=== PATIENT | female | born 1985 | race Caucasian/White ===

== ENCOUNTER 2019-12-18 12:55 | Emergency (ER) | payer BC, SELFPAY ==
[2019-12-18 13:08] VITALS: BP 90/75; PULSE 75; RESP 16; TEMP 36.7; O2SAT 100
--- NOTE | 2019-12-18 13:23 | ED.URI ---
HPI - URI/Sore Throat General Chief Complaint: Upper Respiratory Infection Stated Complaint: Cough/Headache/Fatigue Time Seen by Provider: 12/18/19 13:16 Source: patient and RN notes reviewed Mode of arrival: ambulatory Limitations: no limitations History of Present Illness HPI Narrative: Patient presents today complaint of a 2-week history of frontal headache, sore throat, productive cough. Mostly productive in the mornings. Patient reports shortness of breath when she goes outside. She currently rates her headache 6/10 and has tried NyQuil, Benadryl, and Sudafed without relief. No history of asthma or COPD. She is a non-smoker. MD elicited complaint: cough, sore throat and nasal congestion Related Data Home Medications Medication Instructions Recorded Confirmed bupropion HCl mg PO 12/18/19 lactulose 12/18/19 omeprazole 12/18/19 sertraline mg 12/18/19 Allergies Allergy/AdvReac Type Severity Reaction Status Date / Time adhesive Allergy Severe RASH/ Verified 12/18/19 13:01 BLISTERS peanut Allergy Severe RASH, Verified 12/18/19 13:01 SWELLING lidocaine Allergy Intermediate Rash Verified 12/18/19 13:01 Review of Systems Review of Systems: Narrative: CONSTITUTIONAL: Denies body aches, fever, chills, or sweats. EYES: Denies visual changes, redness, or discharge. ENT: Denies rhinorrhea, congestion, or otalgia.+ Sore throat CARDIOVASCULAR: Denies chest pain, palpitations, or edema. RESPIRATORY: Denies dyspnea.+ Cough with occasional shortness of breath GASTROINTESTINAL: Denies abdominal pain, nausea, vomiting, or diarrhea. GENITOURINARY: Denies dysuria or hematuria. SKIN: Denies rash, itching, or wounds. MUSCULOSKELETAL: Denies back pain, joint pain, or myalgia. NEUROLOGIC: Denies numbness, tingling, or weakness.+ Headache PSYCH: Denies depression or anxiety. [facility] Family History Family History (Updated 06/24/14 @ 07:13 by DOCTOR UNKNOWN) Mother Family history of thyroid disease Family history of chronic obstructive pulmonary disease Sibling Hypertension Asthma Family history of arthritis Family history of malignant neoplasm of uterus Father Family history of lung cancer Other Diabetes mellitus Family history of allergic disorder Family history of cardiovascular disease Social History Social History Smoking status: Never smoker Alcohol intake: current Comments At time of signature, I have reviewed and agree with nursing past medical, surgical, social and family history unless otherwise noted. Please see nursing chart for further information. There is no relevant family history pertinent to the presenting complaint Exam Narrative: Exam Narrative: GENERAL: Well-appearing, well-nourished, and in no acute distress. HEAD: Normocephalic, atraumatic. EYES: EOMI. No redness or drainage. Conjunctivae normal. ENT: Mucous membranes pink and moist. Nares clear. No rhinorrhea. TMs normal bilaterally. Frontal sinus tenderness. Throat normal. Uvula midline. NECK: Normal AROM. Supple. No lymphadenopathy. CHEST: No respiratory distress. Clear to auscultation. HEART: Regular rate and rhythm. No murmur appreciated. Normal peripheral pulses. EXTREMITIES: Normal range of motion. No edema. SKIN: Warm, dry, no rash. NEURO: No focal deficits. Alert and oriented x3. Gait steady. PSYCH: Normal affect. No signs of depression or anxiety. Course Vital Signs Vital signs: Vital Signs Temperature 98.0 F 12/18/19 13:08 Pulse Rate 75 12/18/19 13:08 Respiratory Rate 16 12/18/19 13:08 Blood Pressure 90/75 L 12/18/19 13:08 Pulse Oximetry 100 12/18/19 13:08 Temperature 98.0 F 12/18/19 13:08 Pulse Rate 75 12/18/19 13:08 Respiratory Rate 16 12/18/19 13:08 Blood Pressure 90/75 L 12/18/19 13:08 Pulse Oximetry 100 12/18/19 13:08 Reviewed MDM - URI/Sore Throat Differential Diagnosis Differential diagnosis: Likely upper respiratory infection, sinusit
== END 2019-12-18 13:30 | disposition home or self-care (01) ==
PROVIDERS: Emergency Provider Nurse Practitioner; PCP Internal Medicine
DX: J40 Bronchitis, not specified as acute or chronic (principal); J01.90 Acute sinusitis, unspecified
CPT/HCPCS: 99213; G0463

== ENCOUNTER 2020-09-24 17:53 | Emergency (ER) | payer BC, SELFPAY ==
[2020-09-24 18:03] VITALS: BP 149/97; PULSE 75; RESP 16; TEMP 37.3; O2SAT 100
--- NOTE | 2020-09-24 18:22 | ED.GENADULT ---
HPI - General Adult General Chief complaint: Abdominal Pain Stated complaint: abdominal pain Source: patient Mode of arrival: ambulatory Limitations: no limitations History of Present Illness HPI narrative: Patient is a 35-year-old female who presents complaining of dysuria x2 days. Patient reports being seen by [facility] last week and tested for STDs, patient denies risk of STDs at this time. Patient has a history of gastric sleeve and revision. She denies nausea, vomiting or diarrhea. She reports lower pelvic pressure and dysuria. She reports drinking cranberry juice and increasing water intake with little relief. Related Data Home Medications Medication Instructions Recorded Confirmed bupropion HCl 150 mg PO DAILY 12/18/19 09/24/20 levonorgestrel [Kyleena] 1 device INTRAUTERINE ONCE 12/18/19 09/24/20 omeprazole 40 mg PO DAILY 12/18/19 09/24/20 sertraline 50 mg PO DAILY 12/18/19 09/24/20 spironolactone 50 mg PO DAILY 09/24/20 09/24/20 Allergies Allergy/AdvReac Type Severity Reaction Status Date / Time adhesive Allergy Severe RASH/ Verified 09/24/20 17:58 BLISTERS peanut Allergy Severe RASH, Verified 09/24/20 17:58 SWELLING lidocaine Allergy Intermediate Rash Verified 09/24/20 17:58 Review of Systems Review of Systems: Narrative: CONSTITUTIONAL: Denies fever, chills, or sweats. EYES: Denies visual changes, redness, or discharge. ENT: Denies rhinorrhea, congestion, sore throat, or otalgia. CARDIOVASCULAR: Denies chest pain, palpitations, or edema. RESPIRATORY: Denies cough or dyspnea. GASTROINTESTINAL: Denies abdominal pain, nausea, vomiting, or diarrhea. GENITOURINARY: Reports dysuria SKIN: Denies rash or itching. MUSCULOSKELETAL: Denies back pain, joint pain, or myalgia. NEUROLOGIC: Denies headache, numbness, dizziness, or weakness. PSYCHIATRIC: Denies anxiety or depression. [facility] Surgical History Surgical History History of sleeve gastrectomy Family History Family History Mother Family history of thyroid disease Family history of chronic obstructive pulmonary disease Sibling Hypertension Asthma Family history of arthritis Family history of malignant neoplasm of uterus Father Family history of lung cancer Other Diabetes mellitus Family history of allergic disorder Family history of cardiovascular disease Social History Social History Smoking status: Never smoker Alcohol intake: current Exam Narrative: Exam Narrative: GENERAL: Well-appearing, well-nourished, and in no acute distress. HEAD: Normocephalic, atraumatic. EYES: No redness or drainage. ENT: Mucous membranes pink and moist. CHEST: No respiratory distress. HEART: Regular rate and rhythm. GI: Soft, nontender without rebound, or guarding. No distention. Bowel sounds normal in all quadrants. EXTREMITIES: Normal range of motion. SKIN: Warm, dry, no rash. NEURO: No focal deficits. Alert and oriented x3. Gait steady. PSYCH: Normal affect. No signs of depression or anxiety. Course Vital Signs Vital signs: Vital Signs Temperature 37.3 C 09/24/20 18:03 Pulse Rate 75 09/24/20 18:03 Respiratory Rate 16 09/24/20 18:03 Blood Pressure 149/97 H 09/24/20 18:03 Pulse Oximetry 100 09/24/20 18:03 Temperature 37.3 C 09/24/20 18:03 Pulse Rate 75 09/24/20 18:03 Respiratory Rate 16 09/24/20 18:03 Blood Pressure 149/97 H 09/24/20 18:03 Pulse Oximetry 100 09/24/20 18:03 Reviewed. Patient has been instructed to follow-up with her PCP regarding her blood pressure. Medical Decision Making MDM Narrative Medical decision making narrative: Discussed with patient the possibility of UTI. Patient to be treated for UTI at this time because of symptoms. Discussed with patient potential for complications with sleeve gastrectomy rev
== END 2020-09-24 18:23 | disposition home or self-care (01) ==
PROVIDERS: Emergency Provider Nurse Practitioner
DX: R30.0 Dysuria (principal); Z98.84 Bariatric surgery status
CPT/HCPCS: 81003; 99213; G0463

== ENCOUNTER 2021-01-08 11:47 | Emergency (ER) | payer BC, SELFPAY ==
--- NOTE | ~2021-01-08 | US_ITS ---
EXAMINATION: US pelvic complete DATE: 01/08/2021 14:26 INDICATION: Right-sided pelvic pain Comparison:No prior studies for comparison. TECHNIQUE: Multiple transabdominal images of the pelvis performed. Patient refused transvaginal exami nation. FINDINGS: The uterus measures 10.8 x 5.1 x 6.1 cm. The endometrial complex measures 4 mm. The right ovary measures 1 x 4.2 x 5.2 cm and the left ovary not visualized. There are 2 cysts in the right ovary, largest measuring 5.2 cm. There is no free fluid in the pelvis. There are no abnormal masses seen on either side. IMPRESSION: 1. Right ovarian cysts, largest measuring 5.2 cm. Reviewed, dictated and finalized at location A.
[2021-01-08 11:50] VITALS: BP 140/79; PULSE 59; RESP 16; TEMP 36.2; O2SAT 100
[2021-01-08 12:12] LABS: Basophils Absolute Auto 0.1 K/mm3 (0.0-0.1); Eosinophils Absolute Auto 0.3 K/mm3 (0-0.3); Eosinophils Percent Auto 6.9 % (0-4.4); Hematocrit 37.4 % (37.0-47.0); Hemoglobin 11.8 g/dL (12.0-15.0); Immature Granulocyte Absolute 0.01 K/mm3 (0.00-0.031); Immature Granulocyte Percent A 0.2 % (0-0.5); Immature Platelet Fraction Pct 11.1 % (0.9-11.2); Lymphocytes Absolute Auto 1.24 K/mm3 (0.9-3.2); Lymphocytes Percent Auto 25.8 % (18.3-44.2); Mean Corpuscular HGB Conc 31.6 g/dl (32-36); Mean Corpuscular Hemoglobin 30.3 pg (26-34); Mean Corpuscular Volume 95.9 fl (80-100); Mean Platelet Volume 13.2 fl (7.4-10.4); Monocytes Absolute Auto 0.3 K/mm3 (0.1-0.6); Monocytes Percent Auto 6.7 % (2.6-8.5); Neutrophils Absolute Auto 2.9 K/mm3 (1.3-6.7); Neutrophils Percent Auto 59.4 % (45.5-73.1); Platelet Count Result 186 k/mm3 (150-375); White Blood Count 4.8 K/mm3 (4.5-10.0)
--- NOTE | 2021-01-08 12:28 | ED.ABDPAIN ---
HPI - Abdominal Pain General Chief Complaint: Abdominal Pain Stated Complaint: lower right abd pain Time Seen by Provider: 01/08/21 11:57 Source: patient Mode of arrival: ambulatory Limitations: no limitations History of Present Illness HPI narrative: This is a 35-year-old female that presents the emergency department for right lower quadrant abdominal pain x2 days. Reports she has intermittently felt pain over the last couple of weeks. Reports over the last couple of days the pain has been more constant. It is throbbing in nature. No known alleviating or exacerbating factors. Associated with nausea. Denies fever, vomiting, dysuria, or hematuria. Related Data Home Medications Medication Instructions Recorded Confirmed omeprazole 40 mg PO DAILY 12/18/19 09/24/20 sertraline 50 mg PO DAILY 12/18/19 09/24/20 Allergies Allergy/AdvReac Type Severity Reaction Status Date / Time adhesive Allergy Severe RASH/ Verified 01/08/21 11:56 BLISTERS peanut Allergy Severe RASH, Verified 01/08/21 11:56 SWELLING lidocaine Allergy Intermediate Rash Verified 01/08/21 11:56 Review of Systems Review of Systems: Narrative: CONSTITUTIONAL: Denies fever GASTROINTESTINAL: Reports abdominal pain, nausea. Denies vomiting GENITOURINARY: Denies dysuria or hematuria. All systems reviewed & are unremarkable except as noted in HPI and below PMFSH Past Medical History Medical History (Updated 01/08/21 @ 15:21 by Annette Gaytan PA-C) History of gastroesophageal reflux (GERD) Surgical History Surgical History History of sleeve gastrectomy Family History Family History Mother Family history of thyroid disease Family history of chronic obstructive pulmonary disease Sibling Hypertension Asthma Family history of arthritis Family history of malignant neoplasm of uterus Father Family history of lung cancer Other Diabetes mellitus Family history of allergic disorder Family history of cardiovascular disease Social History Social History Smoking status: Never smoker Alcohol intake: current Exam Narrative: Exam Narrative: GENERAL: Well-appearing, obese, and in no acute distress. HEAD: Normocephalic, atraumatic. EYES: EOMI. CHEST: Clear to auscultation. No respiratory distress. No wheezes rales or rhonchi HEART: Regular rate and rhythm. No murmur heard. Normal peripheral pulses. ABDOMEN: Soft, nondistended, normal active bowel sounds. Tender to palpation in the right lower quadrant, without guarding. No CVA tenderness EXTREMITIES: Normal range of motion. No edema. SKIN: Warm, dry, no rash. NEURO: No focal deficits. Alert and oriented x3. PSYCH: Normal mood and affect Course Consultations Consultation #1: Spoke with Dr. Marisel Brooks about patient and workup. Patient is to follow up in clinic tomorrow Date: 01/08/21 Time: 15:18 Vital Signs Vital signs: Vital Signs Temperature 97.1 F L 01/08/21 11:50 Pulse Rate 59 L 01/08/21 11:50 Respiratory Rate 16 01/08/21 11:50 Blood Pressure 140/79 01/08/21 11:50 Pulse Oximetry 100 01/08/21 11:50 Temperature 97.1 F L 01/08/21 11:50 Pulse Rate 59 L 01/08/21 11:50 Respiratory Rate 16 01/08/21 11:50 Blood Pressure 140/79 01/08/21 11:50 Pulse Oximetry 100 01/08/21 11:50 MDM - Abdominal Pain MDM Narrative Medical decision making narrative: Patient presents the emergency department for right-sided abdominal/pelvic pain intermittent over the last couple of weeks. She is afebrile and nontoxic-appearing. Vitals are stable. CBC is without leukocytosis. Hemoglobin is 11.8. Metabolic panel without concerning findings. Lipase is normal. UA without evidence of infection. Bedside test is negative. Patient does have ovarian cysts shown on pelvic ultrasound. Largest
[2021-01-08 12:50] LABS: Add Urine Microscopic? YES; Appearance Urine Clear (Clear); Bilirubin Urine Negative (Negative); Blood Urine 3+ (Negative); Calcium Oxalate Crystals Urine Present /hpf; Color Urine Yellow (Yellow); Glucose Urine UA Negative (Negative); Ketones Urine Negative (Negative); Leukocyte Esterase Ur Negative LEU/UL (Negative); Mucus Urine Few /lpf; Nitrate Urine Negative (Negative); Protein Urine Negative (Negative); Specific Grav Ur 1.021 (1.001-1.035); Squamous Epithelial Cell Urine Few /hpf (Few); WBC Urine 0-3 /hpf
[2021-01-08 12:57] LABS: Alanine Aminotransferase 11 U/L (4-35); Albumin Level 3.8 g/dL (3.5-5.1); Alkaline Phosphatase 65 U/L (38-126); Anion Gap 3 mmol/L (8-16); Aspartate Amino Transferase 27 U/L (14-36); Bilirubin,Total 0.4 mg/dL (0.2-1.3); Blood Urea Nitrogen 9 mg/dL (7-17); Calcium 8.8 mg/dL (8.4-10.2); Carbon Dioxide 30 mmol/L (22-30); Chloride 106 mmol/L (98-107); Estimated CRCL calculation 174 ml/min; Estimated Glomerular Filt Rate > 60; Glucose 79 mg/dL (65-105); Lipase 102 U/L (23-300); Potassium 3.9 mmol/L (3.4-5.0); Sodium 139 mmol/L (137-145)
[2021-01-08] MEDS: ONDANSETRON INJ 4 MG/2 ML VIAL IV PUSH (13:26)
[2021-01-08] MEDS: MORPHINE SULFATE (*CRX) 4 MG/ML INJ IV PUSH (13:26)
--- NOTE | 2021-01-14 15:53 | PC.NURSE ---
LATE ENTRY This note is being entered to document information to the patient's record. The following information was omitted on [01/08/21], by [CHARISSA]. [facility] START [id number] END [id number]
== END 2021-01-08 15:53 | disposition home or self-care (01) ==
PROVIDERS: Physician Assistant; Emergency Provider Family Medicine; PCP Internal Medicine
DX: N83.201 Unspecified ovarian cyst, right side (principal); K21.9 Gastro-esophageal reflux disease without esophagitis; Z98.84 Bariatric surgery status
CPT/HCPCS: 36415; 76856; 80053; 81001; 81025; 83690; 85025; 85055; 96365; 96375; 99284; J0131; J2270; J2405

== ENCOUNTER → 2021-01-10 00:59 | Outpatient (CLI) | payer BC, SELFPAY ==
[2021-01-10 18:32] LABS: SARS-CoV-2 RNA PCR Negative
== END ==
PROVIDERS: PCP Internal Medicine; Visit Provider Obstetrics & Gynecology
DX: Z01.812 Encounter for preprocedural laboratory examination (principal); Z20.822 Contact with and (suspected) exposure to COVID-19
CPT/HCPCS: C9803; U0003; U0005

== ENCOUNTER 2021-01-13 01:10 | Day surgery (SDC) | payer BC, SELFPAY ==
--- NOTE | 2021-01-10 09:59 | PM.IMHP ---
H&P: HPI History of Present Illness Date/Time: 01/10/21 09:59 status post left salpingo-oophorectomy is admitted for right cystectomy secondary to enlarged ovarian cyst and pain. She was seen in the emergency department and a large right ovarian cyst was seen. Pain is 10 of review systems were negati Chief Complaint: pain r ov cyst PMFSH Past Medical History Medical History History of gastroesophageal reflux (GERD) Surgical History Surgical History History of sleeve gastrectomy Family History Family History Mother Family history of thyroid disease Family history of chronic obstructive pulmonary disease Sibling Hypertension Asthma Family history of arthritis Family history of malignant neoplasm of uterus Father Family history of lung cancer Other Diabetes mellitus Family history of allergic disorder Family history of cardiovascular disease Social History Social History Smoking status: Never smoker Alcohol intake: current Meds Home Medications and Allergies Home Medications Medication Instructions Recorded Confirmed Type omeprazole 40 mg PO DAILY 12/18/19 09/24/20 History sertraline 50 mg PO DAILY 12/18/19 09/24/20 History hydrocodone-acetaminophen 1 tablet PO Q6H PRN #14 tablet 01/08/21 Rx Allergies Allergy/AdvReac Type Severity Reaction Status Date / Time adhesive Allergy Severe RASH/ Verified 01/08/21 11:56 BLISTERS peanut Allergy Severe RASH, Verified 01/08/21 11:56 SWELLING lidocaine Allergy Intermediate Rash Verified 01/08/21 11:56 Exam Const: General: no acute distress Eyes: General: appearance normal, both eyes and all related structures Neck: Neck: supple and no JVD Thyroid: thyroid normal Resp: Effort & Inspection: normal respiratory effort Auscultation: clear to auscultation bilaterally Cardio: Rate: regular rate Rhythm: regular rhythm GI: Inspection: non-distended GI Palp: Yes Soft to palpation, No Tenderness to palpation present (GI) and No Guarding due to palpation present (GI) Auscultation: normal bowel sounds : General: Yes bladder normal to inspection External Female Exam: normal external appearance Speculum Exam - Vagina: normal appearance of the vagina Speculum Exam - Cervix: Cervical os closed Bimanual exam- vagina & uterus: Uterine tenderness Bimanual Exam- Adnexa, other: tender on the right Skin: General skin exam: no rashes or lesions noted Extrem: General: normal to inspection and no edema Psych: Mental Status: mental status grossly normal Affect: normal affect Assessment and Plan Additional Plan impression: Complex right ovarian cyst Plan: Laparoscopic right ovarian cystectomy possible right salpingo-oophorectomy
[2021-01-10 12:10] VITALS: BMI 41.3
[2021-01-13] VITALS (9 sets, daily range): BP systolic 116–143; BP diastolic 53–78; PULSE 59–74; RESP 10–20; TEMP 36.8; O2SAT 98–100
--- NOTE | 2021-01-13 06:05 | WPDHPUPDATE1 ---
History and Physical Update Update Date/Time: 01/13/21 06:05 History and Physical has been reviewed, including an updated exam of the patient. There are NO changes in the patient's condition. Risks, benefits, and alternatives have been discussed and questions answered. Patient agrees to proceed with procedure.
--- NOTE | 2021-01-13 13:52 | P.PNAN_ITS ---
Anes - Initial Pre Proc Eval Procedure: Operation Date: 01/13/21 15:15 Proposed Procedures p Laparoscopy With Right Ovarian Cystectomy, Possible Right Salpingo- oophorectomy - Christopher Squires MD Date/Time: 01/13/21 13:52 Surgeon: Christopher Squires MD Pre Op Diagnosis: Right Ovarian Cyst, pain Patient Data Age: 35 Gender: F Height: 5 ft 6 in Weight: 116 kg Allergies Allergy/AdvReac Type Severity Reaction Status Date / Time peanut Allergy Severe RASH, Verified 01/13/21 13:45 THROAT SWELLING adhesive AdvReac Intermediate RASH/ Verified 01/13/21 13:45 BLISTERS lidocaine AdvReac Intermediate Rash Verified 01/13/21 13:45 Home Medications Medication Instructions Recorded Confirmed Type omeprazole 40 mg PO DAILY 12/18/19 01/13/21 History sertraline 50 mg PO DAILY 12/18/19 01/13/21 History hydrocodone-acetaminophen 1 tablet PO Q6H PRN #14 tablet 01/08/21 01/10/21 Rx [id number] K 1 cap PO DAILY 01/10/21 01/13/21 History [Bariatric Multivitamins] hydrocodone-acetaminophen 1 tablet PO Q6H PRN #30 tablet 01/13/21 Rx Patient hx anesthesia problems: none Family hx anesthesia problems: none PMFSH Past Medical History Medical History (Updated 01/13/21 @ 13:51 by Ezra Selby MD) History of gastroesophageal reflux (GERD) Hypertension 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 Surgical History Surgical History History of sleeve gastrectomy Family History Family History Mother Family history of thyroid disease Family history of chronic obstructive pulmonary disease Sibling Hypertension Asthma Family history of arthritis Family history of malignant neoplasm of uterus Father Family history of lung cancer Other Diabetes mellitus Family history of allergic disorder Family history of cardiovascular disease Social History Social History Smoking status: Never smoker Alcohol intake: current Alcohol use details: 1-2 TIMES/YEAR Substance use: never Substance use type: does not use Living arrangements: with family Spiritual care concerns: No Anes - Eval Final PreProcedure Day of Procedure 01/13/21 13:52 Patient weight: morbidly obese Heart: regular rate and rhythm Lungs: clear to auscultation Airway: Mallampati scale class III Neurological: alert and oriented Last oral intake: >/= 8 hours ASA classification: III Emergent: no Anesthetic plan: proceed Anesthesia type and monitoring: general ETT and standard monitoring Informed Consent: The patient's anesthetic plan and its attendant risks and benefits were discussed with the patient/family/POA. Questions were solicited and answers provided to the satisfaction of the patient/family/POA.
[2021-01-13] MEDS: LACTATED RINGERS 1,000 ML 30 ML IV CONT ×2 (13:55→15:03)
[2021-01-13] MEDS: ACETAMINOPHEN 500 MG TABLET 1000 MG PO (14:05)
[2021-01-13] MEDS: SCOPOLAMINE 1.5 MG PATCH TRANSDERM (14:09)
[2021-01-13] MEDS: KETOROLAC 15 MG/ML VIAL (*BKC) IV PUSH (14:10)
--- NOTE | 2021-01-13 14:51 | PM.PROC ---
Procedure Note - Detailed Date of procedure: 01/13/21 Pre-op diagnosis: Right Ovarian Cyst, pain Surgeon: Christopher Squires MD Postop diagnosis: Right ovarian cyst/pain Procedure: Laparoscopic destruction of right ovarian cyst Anesthesia: General endotracheal EBL: 5cc Findings: Absent left ovary and tube. Normal appearing uterus. Large right ovarian cyst. Pelvic congestion on the right. Complications: None Description of procedure: The patient was prepped and draped in the normal sterile fashion placed in the dorsal lithotomy position. Under excellent general trach anesthesia weighted speculum placed in posterior fornix of vagina. Anterior lip of the cervix was grasped with a single-tooth tenaculum and the Garcia's cannula inserted to the cervix. These were attached to be used later for uterine manipulation. The bladder was emptied of clear urine. The weighted speculum removed. Gloves were changed. A supraumbilical incision made the Veress needle passed in the abdomen. Abdomen filled with CO2 gas [id number]. The 5mm trocar advanced directly into the abdomen under visualization assuring no injury. The patient placed in Trendelenburg and a suprapubic incision made. The 5mm trocar advanced under direct visualization assuring no injury. The large right ovarian cyst was seen with a large amount of pelvic congestion. There was no torsion present. The incision was opened along the ovary in a linear fashion using cautery. This drained of clear fluid. This was then irrigated and suction. No other abnormalities were seen. The liver was noted to be fairly large incised. The lower site removed after gas removed from the abdomen. The upper site removed and the incisions closed with 4 Monocryl and glue. The instruments removed from below. The patient was awakened. All sponge, needle, instrument counts were correct. There were no immediate complications
[2021-01-13] MEDS: fentaNYL CITRATE INJ (*CRX) 100 MCG/2 ML VIAL 25 MCG IV PUSH ×4 (15:16→15:26)
[2021-01-13] MEDS: oxyCODONE HCL (*CRX) 5 MG TAB IR PO (16:08)
== END 2021-01-13 17:14 | disposition home or self-care (01) ==
PROVIDERS: PCP Internal Medicine; Visit Provider Obstetrics & Gynecology
PROC: (CPT 49320; principal; 2021-01-13 15:15)
DX: N83.291 Other ovarian cyst, right side (principal); R10.12 Left upper quadrant pain; K21.9 Gastro-esophageal reflux disease without esophagitis; I10 Essential (primary) hypertension; Z92.21 Personal history of antineoplastic chemotherapy; Z92.3 Personal history of irradiation; Z85.79 Personal history of other malignant neoplasms of lymphoid, hematopoietic and related tissues; E66.01 Morbid (severe) obesity due to excess calories; Z68.41 Body mass index [BMI] 40.0-44.9, adult; Z98.84 Bariatric surgery status
CPT/HCPCS: 58662; 36415; 86850; 86900; 86901; A9270; J0330; J1100; J1885; J2250; J2405; J2704; J3010; J7120

== ENCOUNTER 2021-03-26 22:28 | Emergency (ER) | payer BC, SELFPAY ==
--- NOTE | ~2021-03-26 | CT_ITS ---
EXAMINATION: CT abdomen pelvis w con DATE: 03/27/2021 00:51 INDICATION: Suprapubic pain. TECHNIQUE: Computed tomography (CT) of the abdomen and pelvis was performed with 100 mL Omnipaque 350 intravenous contrast. Automated exposure control and iterative reconstruction technique were employe d. The dose-length product was 965.54 mGy-cm. COMPARISON: CT abdomen and pelvis 11/12/2018 FINDINGS: The visualized portions of the lung bases are clear without pneumonia or pleural effusion. The heart size is normal. No pericardial effusion. There are surgical changes of the stomach. There i s mild intrahepatic biliary duct dilatation. The common duct is dilated to 14 mm. These findings are stable from 11/12/2018 and likely not clinically significant given the normal liver function tests. Th ere are changes of cholecystectomy. The spleen, pancreas, adrenal glands, and left kidney are normal. There are two 2 mm stones in right kidney. There are no dilated loops of bowel. The appendix is norm al. There are no pathologically enlarged lymph nodes. There is trace ascites. There is a chronic comp ression fracture of L1. There is moderate lumbar spondylosis. IMPRESSION: 1. Small nonobstructing right kidney stones. Reviewed, dictated and finalized at location A.
[2021-03-26 22:32] VITALS: BP 146/90; PULSE 75; RESP 18; TEMP 36.6; O2SAT 99
[2021-03-26 22:50] LABS: Basophils Absolute Auto 0.1 K/mm3 (0.0-0.1); Basophils Percent Auto 1.1 % (0.2-1.2); Eosinophils Absolute Auto 0.4 K/mm3 (0-0.3); Eosinophils Percent Auto 7.8 % (0-4.4); Immature Granulocyte Absolute 0.01 K/mm3 (0.00-0.031); Immature Granulocyte Percent A 0.2 % (0-0.5); Lymphocytes Absolute Auto 1.63 K/mm3 (0.9-3.2); Lymphocytes Percent Auto 35.1 % (18.3-44.2); Mean Corpuscular HGB Conc 30.8 g/dl (32-36); Mean Corpuscular Hemoglobin 27.3 pg (26-34); Mean Corpuscular Volume 88.8 fl (80-100); Mean Platelet Volume 12.8 fl (7.4-10.4); Monocytes Absolute Auto 0.3 K/mm3 (0.1-0.6); Neutrophils Absolute Auto 2.3 K/mm3 (1.3-6.7); Neutrophils Percent Auto 49.8 % (45.5-73.1); Platelet Count Result 217 k/mm3 (150-375); Red Blood Count 4.39 M/mm3 (4.2-5.4); Red Cell Distribution Width 13.9 % (11.5-14.5); White Blood Count 4.6 K/mm3 (4.5-10.0)
[2021-03-26 23:19] LABS: Alanine Aminotransferase 14 U/L (4-35); Albumin Level 4.4 g/dL (3.5-5.1); Alkaline Phosphatase 88 U/L (38-126); Anion Gap 10 mmol/L (8-16); Aspartate Amino Transferase 29 U/L (14-36); Bilirubin,Total 0.4 mg/dL (0.2-1.3); Blood Urea Nitrogen 13 mg/dL (7-17); Calcium 9.5 mg/dL (8.4-10.2); Carbon Dioxide 24 mmol/L (22-30); Chloride 106 mmol/L (98-107); Estimated CRCL calculation 161 ml/min; Estimated Glomerular Filt Rate > 60; Glucose 100 mg/dL (65-105); Lipase 108 U/L (23-300); Potassium 3.6 mmol/L (3.4-5.0); Sodium 140 mmol/L (137-145)
[2021-03-26 23:47] LABS: Add Urine Microscopic? YES; Appearance Urine Clear (Clear); Bacteria Urine Trace /hpf; Bilirubin Urine 1+ (Negative); Blood Urine Negative (Negative); Color Urine Amber (Yellow); Glucose Urine UA Negative (Negative); Ketones Urine Negative (Negative); Leukocyte Esterase Ur Negative LEU/UL (Negative); Mucus Urine Few /lpf; Nitrate Urine Negative (Negative); Protein Urine 2+ mg/dL (Negative); Squamous Epithelial Cell Urine Moderate /hpf (Few)
[2021-03-26] MEDS: MORPHINE SULFATE (*CRX) 4 MG/ML INJ IV PUSH (23:54)
[2021-03-26 23:56] LABS: Specific Grav Ur 1.055 (1.001-1.035)
--- NOTE | 2021-03-27 02:50 | ED.ABDPAIN ---
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 No improvement with Tylenol. No aggravating factors that she can identify. She is without GI or symptoms. No vaginal discharge or bleeding. Has history of ovarian cysts and this feels similar. Related Data Home Medications Medication Instructions Recorded Confirmed omeprazole 40 mg PO DAILY 12/18/19 01/13/21 sertraline 50 mg PO DAILY 12/18/19 01/13/21 pciyfynwmwwb-tsc-xhvd-FA-vit K 1 cap PO DAILY 01/10/21 01/13/21 [Bariatric Multivitamins] Allergies Allergy/AdvReac Type Severity Reaction Status Date / Time peanut Allergy Severe RASH, Verified 01/13/21 13:45 THROAT SWELLING adhesive AdvReac Intermediate RASH/ Verified 01/13/21 13:45 BLISTERS lidocaine AdvReac Intermediate Rash Verified 01/13/21 13:45 Review of Systems Review of Systems: All systems reviewed & are unremarkable except as noted in HPI and below Constitutional: Constitutional: Denies chills and Denies fever(s) Gastrointestinal: Gastrointestinal: Reports abdominal pain, Denies diarrhea, Reports nausea and Denies vomiting Genitourinary: Genitourinary: Denies hematuria, Denies nocturia, Denies dysuria and Denies flank pain Musculoskeletal: Musculoskeletal: Denies back pain and Denies muscle cramps PMFSH Past Medical History Medical History (Updated 03/27/21 @ 02:52 by Nino Danielle MD) History of gastroesophageal reflux (GERD) Hypertension 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 Surgical History Surgical History (Updated 03/27/21 @ 02:52 by Nino Danielle MD) History of left salpingo-oophorectomy History of sleeve gastrectomy Family History Family History Mother Family history of thyroid disease Family history of chronic obstructive pulmonary disease Sibling Hypertension Asthma Family history of arthritis Family history of malignant neoplasm of uterus Father Family history of lung cancer Other Diabetes mellitus Family history of allergic disorder Family history of cardiovascular disease Social History Social History Smoking status: Never smoker Alcohol intake: current Substance use: never Substance use type: does not use Spiritual care concerns: No Exam Narrative: Exam Narrative: GENERAL: Well-appearing, well-nourished, and in no acute distress. HEAD: Normocephalic, atraumatic. CHEST: Clear to auscultation. No respiratory distress. HEART: Regular rate and rhythm. Normal peripheral pulses. ABDOMEN: Soft, mild to moderate suprapubic tenderness without guarding, nondistended, normal active bowel sounds. EXTREMITIES: Normal range of motion. No edema. SKIN: Warm, dry, no rash. NEURO: Alert and oriented x3. PSYCH: Normal mood and affect. Course Course Emergency Course: Suspect for short ovarian cyst. Pain improved with morphine. Discharge home. Vital Signs Vital signs: Vital Signs Temperature 98 F 03/26/21 22:32 Pulse Rate 75 03/26/21 22:32 Respiratory Rate 18 03/26/21 22:32 Blood Pressure 146/90 H 03/26/21 22:32 Pulse Oximetry 99 03/26/21 22:32 Temperature 98 F 03/26/21 22:32 Pulse Rate 75 03/26/21 22:32 Respiratory Rate 18 03/26/21 22:32 Blood Pressure 146/90 H 03/26/21 22:32 Pulse Oximetry 99 03/26/21 22:32 MDM - Abdominal Pain Lab Data Result diagrams: 03/26/21 22:43 03/26/21 22:43 Labs: Lab Results 03/26/21 03/26/21 03/26/21 Range/Units 22:43 22:43 23:29 WBC 4.6 (4.5-10.0) K/mm3 RBC 4.39 (4.2-5.4) M/mm3 Hgb 12.0
[2021-03-27 03:16] VITALS: BP 136/85; PULSE 79; RESP 16; TEMP 36.7; O2SAT 99
== END 2021-03-27 03:17 | disposition home or self-care (01) ==
PROVIDERS: Emergency Provider Emergency Medicine; PCP Internal Medicine
DX: N83.209 Unspecified ovarian cyst, unspecified side (principal); K21.9 Gastro-esophageal reflux disease without esophagitis; I10 Essential (primary) hypertension; Z85.79 Personal history of other malignant neoplasms of lymphoid, hematopoietic and related tissues; N20.0 Calculus of kidney
CPT/HCPCS: 36415; 74177; 80053; 81001; 81025; 83690; 85025; 96374; 99284; J2270; Q9967

== ENCOUNTER 2021-04-23 15:55 | Emergency (ER) | payer BC, SELFPAY ==
[2021-04-23] VITALS (9 sets, daily range): BP systolic 83–165; BP diastolic 43–100; PULSE 61–76; RESP 12–19; TEMP 36.8–37.1; O2SAT 94–100
--- NOTE | ~2021-04-23 | CT_ITS ---
EXAMINATION: CT brain wo con DATE: 04/23/2021 17:09 INDICATION: Syncope. TECHNIQUE: Computed tomography (CT) of the head was performed without intravenous contrast. The mA wa s adjusted according to patient size. Iterative reconstruction technique was employed. The dose-lengt h product was 605.33 mGy-cm. COMPARISON: Head CT 06/03/2017 FINDINGS: There is no intracranial hemorrhage, acute infarction, or abnormal intracranial mass lesion . The ventricles are normal in size. There is mild mucosal thickening in the paranasal sinuses. The o rbits are normal. There is a small right mastoid effusion. IMPRESSION: 1. Normal brain. Reviewed, dictated and finalized at location [facility]. IMPRESSION: 1. Normal brain.
--- NOTE | ~2021-04-23 | XR_ITS ---
EXAMINATION: XR chest 1V DATE: 04/23/2021 17:10 INDICATION: Syncope. TECHNIQUE: A single frontal view of the chest was obtained. COMPARISON: Chest 2 views 01/31/2016, CT abdomen and pelvis 03/27/2021 FINDINGS: The chest demonstrates clear lungs without pneumonia, pleural effusion, or pneumothorax. Th e heart size is normal. Surgical clips in the right upper quadrant are likely from cholecystectomy. IMPRESSION: 1. No acute cardiopulmonary disease. Reviewed, dictated and finalized at location [facility].
--- NOTE | ~2021-04-23 | CT_ITS ---
EXAMINATION: CT abdomen pelvis w con DATE: 04/23/2021 19:05 INDICATION: Low abdominal pain. TECHNIQUE: Computed tomography (CT) of the abdomen and pelvis was performed with 100 mL Omnipaque 350 intravenous contrast. Automated exposure control and iterative reconstruction technique were employe d. The dose-length product was 827.84 mGy-cm. COMPARISON: CT abdomen and pelvis 03/27/2021, 11/12/18 FINDINGS: The visualized portions of the lung bases are clear without pneumonia or pleural effusion. The heart size is normal. No pericardial effusion. There is periportal edema in the liver. There are changes of cholecystectomy. There are surgical changes in the stomach. The common duct is dilated to 12 mm, which is chronic and likely not clinically significant given the normal liver function tests. The spleen, pancreas, adrenal glands, and left kidney are normal. There are 2 stones in right kidney with the larger measuring 3 mm. There are no dilated loops of bowel. The appendix is normal. There ar e no pathologically enlarged lymph nodes. There is trace pelvic ascites. There is a chronic compressi on fracture of L1. There is mild lumbar spondylosis. IMPRESSION: 1. Small nonobstructing right kidney stones. Reviewed, dictated and finalized at location A.
--- NOTE | ~2021-04-23 | CT_ITS ---
EXAMINATION: CT cervical spine wo con DATE: 04/23/2021 17:09 INDICATION: Fall. TECHNIQUE: Computed tomography (CT) of the cervical spine was performed without intravenous contrast. Automated exposure control and iterative reconstruction technique were employed. The dose-length pro duct was 605.33 mGy-cm. COMPARISON: CT cervical spine 08/31/2016 FINDINGS: There is 9 degrees levocurvature of cervicothoracic spine. Vertebral body heights and inter vertebral disc heights are normal. C1 ring is ununited posteriorly, a normal variant. At C7-T1, there is mild bilateral facet joint osteoarthritis. No neural foraminal stenosis or central canal stenosis . IMPRESSION: 1. No fracture. Reviewed, dictated and finalized at location A. IMPRESSION: 1. No fracture.
--- NOTE | 2021-04-23 15:57 | ECG_ITS ---
Measurements Intervals [place] Rate: 72 P: 65 DE: 172 QRS: 30 QRSD: 89 T: 48 QT: 388 QTc: 427 Interpretive Statements SINUS RHYTHM POSSIBLE LEFT ATRIAL ENLARGEMENT BORDERLINE ECG Electronically Signed On 04-23-2021 17:04:57 CDT by Shane Casiano D.O.
--- NOTE | 2021-04-23 16:16 | ED.AMS ---
HPI - Altered Mental Status General Chief Complaint: Altered Mental Status <Hazel Solis MD - Last Filed: 04/23/21 18:19> Stated Complaint: unresponsive <Hazel Solis MD - Last Filed: 04/23/21 18:19> Time Seen by Provider: 04/23/21 15:57 <Hazel Solis MD - Last Filed: 04/23/21 18:19> Source: family <Hazel Solis MD - Last Filed: 04/23/21 18:19> Mode of arrival: wheelchair <Hazel Solis MD - Last Filed: 04/23/21 18:19> Limitations: other (unresponsive) <Hazel Solis MD - Last Filed: 04/23/21 18:19> History of Present Illness HPI narrative: This is a 36 year old female who presents by private care for evaluation of unresponsiveness. Nursing staff pulled patient out of a car. Her family told nursing staff that she was at a [facility] and she was outside all day. They reports she went unresponsive. Patient has eyes open and she will look at you but she will not answer any questions. <Hazel Solis MD - Last Filed: 04/23/21 18:19> Related Data Home Medications: Home Medications Medication Instructions Recorded Confirmed omeprazole 40 mg PO DAILY 12/18/19 01/13/21 sertraline 50 mg PO DAILY 12/18/19 01/13/21 ygycvhcedsae-hpn-dpsc-FA-vit K 1 cap PO DAILY 01/10/21 01/13/21 [Bariatric Multivitamins] <Hazel Solis MD - Last Filed: 04/23/21 18:19> Allergies/Adverse Reactions: Allergies Allergy/AdvReac Type Severity Reaction Status Date / Time peanut Allergy Severe RASH, Verified 01/13/21 13:45 THROAT SWELLING adhesive AdvReac Intermediate RASH/ Verified 01/13/21 13:45 BLISTERS lidocaine AdvReac Intermediate Rash Verified 01/13/21 13:45 <Hazel Solis MD - Last Filed: 04/23/21 18:19> Review of Systems Review of Systems: ROS unobtainable: Yes unobtainable due to mental status <Hazel Solis MD - Last Filed: 04/23/21 18:19> [facility] Past Medical History Medical History: Medical History History of gastroesophageal reflux (GERD) Hypertension 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 <Hazel Solis MD - Last Filed: 04/23/21 18:19> Surgical History Surgical History: Surgical History History of left salpingo-oophorectomy History of sleeve gastrectomy <Hazel Solis MD - Last Filed: 04/23/21 18:19> Family History Family History: Family History Mother Family history of thyroid disease Family history of chronic obstructive pulmonary disease Sibling Hypertension Asthma Family history of arthritis Family history of malignant neoplasm of uterus Father Family history of lung cancer Other Diabetes mellitus Family history of allergic disorder Family history of cardiovascular disease <Hazel Solis MD - Last Filed: 04/23/21 18:19> Social History Social History: Social History Smoking status: Never smoker Alcohol intake: current Substance use: never Substance use type: does not use Spiritual care concerns: No <Hazel Solis MD - Last Filed: 04/23/21 18:19> Exam Const: General: no acute distress <Hazel Solis MD - Last Filed: 04/23/21 18:19> Nutritional Appearance: obese <Hazel Solis MD - Last Filed: 04/23/21 18:19> Other: eyes open <Hazle Solis MD - Last Filed: 04/23/21 18:19> HENMT: Head: normocephalic and atraumatic <Hazel Solis MD - Last Filed: 04/23/21 18:19> Face and sinus: normal facial exam and sinuses nontender <Hazel Solis MD - Last Filed: 04/23/21 18:19> Eyes: EOM: EOMs intact bilaterally <Hazel Solis MD - Last Filed: 04/23/21 18:19> Resp: Effort & Inspection: normal respiratory effort and no retractions <Hazel Solis MD -
[2021-04-23] MEDS: SODIUM CHLORIDE 0.9% IV 1,000 ML 999 ML IV CONT ×2 (16:22→18:46)
[2021-04-23] MEDS: SODIUM CHLORIDE 0.9% IV 1,000 ML 999 ML (16:50)
[2021-04-23 16:55] LABS: Alveolar/Arterial O2 Gradient 77.5 mmHg; Base Excess ABG -2.2 mEq/l (+/-2.0); Fractional Inspired Oxygen 32 %; HCO3 ABG 21.5 mEq/l (22.0-26.0); Oxygen Content ABG 16.3 %vol (16.0-22.0); Oxygen Saturation ABG 98.2 % (95.0-100.0); Oxyhemoglobin 97.2 % THb (90.0-100.0); PCO2 ABG 33.2 mmHg (35.0-45.0); PO2 ABG 111.8 mmHg (80.0-100.0); PO2 FiO2 Ratio Arterial Blood 3.49 %; Total Hemoglobin 11.8 g/dL (12.0-18.0); pH ABG 7.429 (7.350-7.450)
[2021-04-23 16:55] LABS: Basophils Absolute Auto 0.1 K/mm3 (0.0-0.1); Basophils Percent Auto 1.1 % (0.2-1.2); Eosinophils Absolute Auto 0.3 K/mm3 (0-0.3); Eosinophils Percent Auto 5.4 % (0-4.4); Hematocrit 38.6 % (37.0-47.0); Hemoglobin 11.9 g/dL (12.0-15.0); Immature Granulocyte Absolute 0.01 K/mm3 (0.00-0.031); Immature Granulocyte Percent A 0.2 % (0-0.5); Immature Platelet Fraction Pct 11.3 % (0.9-11.2); Lymphocytes Absolute Auto 1.18 K/mm3 (0.9-3.2); Lymphocytes Percent Auto 25.6 % (18.3-44.2); Mean Corpuscular HGB Conc 30.8 g/dl (32-36); Mean Corpuscular Hemoglobin 27.7 pg (26-34); Mean Platelet Volume 12.8 fl (7.4-10.4); Monocytes Absolute Auto 0.4 K/mm3 (0.1-0.6); Monocytes Percent Auto 7.6 % (2.6-8.5); Neutrophils Absolute Auto 2.8 K/mm3 (1.3-6.7); Neutrophils Percent Auto 60.1 % (45.5-73.1); Platelet Count Result 203 k/mm3 (150-375); Red Blood Count 4.29 M/mm3 (4.2-5.4); Red Cell Distribution Width 14.7 % (11.5-14.5); White Blood Count 4.6 K/mm3 (4.5-10.0)
[2021-04-23 16:57] LABS: Device NASAL CANNULA; Modified Allen's Test Pass; Site Drawn RIGHT RADIAL
--- NOTE | 2021-04-23 17:00 | PC.NURSE ---
Pt's mother called in and states that pt has severe mental stress and a lot of health issues currently. Mother states pt has had revised gastric surgery, been stung by fire ants, had a miscarriage of twins earlier this year, and thinks pt may be currently. Mother also states pt has had a psychotic episode recently as described by hallucinations, yelling and cursing. Son currently at bedside. Pt now talking appropriately and follow directions easily.
[2021-04-23 17:05] LABS: Lactic Acid Reflex 1.6 mmol/L (0.7-2.1)
[2021-04-23 17:14] LABS: Alanine Aminotransferase 14 U/L (4-35); Albumin Level 4.6 g/dL (3.5-5.1); Alkaline Phosphatase 91 U/L (38-126); Anion Gap 12 mmol/L (8-16); Aspartate Amino Transferase 31 U/L (14-36); Bilirubin,Total 0.9 mg/dL (0.2-1.3); Blood Urea Nitrogen 13 mg/dL (7-17); Calcium 9.5 mg/dL (8.4-10.2); Carbon Dioxide 19 mmol/L (22-30); Chloride 110 mmol/L (98-107); Estimated CRCL calculation 175 ml/min; Estimated Glomerular Filt Rate > 60; Glucose 86 mg/dL (65-105); Potassium 4.2 mmol/L (3.4-5.0); Sodium 141 mmol/L (137-145)
[2021-04-23 17:16] LABS: Creatine Kinase 37 U/L (30-135)
[2021-04-23 17:18] LABS: Ethanol < 10 mg/dL (<10); Salicylate < 1.0 mg/dL (2-20)
[2021-04-23 17:24] LABS: Troponin I < 0.012 ng/mL (0.000-0.034)
[2021-04-23 18:29] LABS: Beta HCG Quantitative < 2.39 mIU/ML
[2021-04-23 18:53] LABS: Add Urine Microscopic? YES; Appearance Urine Clear (Clear); Bilirubin Urine Negative (Negative); Blood Urine Negative (Negative); Calcium Oxalate Crystals Urine Present /hpf; Color Urine Yellow (Yellow); Glucose Urine UA Negative (Negative); Ketones Urine Trace mg/dL (Negative); Leukocyte Esterase Ur Negative LEU/UL (Negative); Mucus Urine Heavy /lpf; Nitrate Urine Negative (Negative); Protein Urine Negative (Negative); Specific Grav Ur 1.016 (1.001-1.035); Squamous Epithelial Cell Urine Few /hpf (Few); Urobilinogen Urine Negative mg/dL (<2.0); WBC Urine 0-3 /hpf
[2021-04-23 19:06] LABS: Barbiturate Screen Urine Negative (Negative); Benzodiazepines Screen Urine Negative (Negative)
[2021-04-23 19:10] LABS: Amphetamine Screen Urine Negative (Negative); Cannabinoid Screen Urine Negative (Negative); Cocaine Screen Urine Negative (Negative); Methadone Screen Urine Negative (Negative); Opiate Screen Urine Positive (Negative); Phencyclidine Screen Urine Negative (Negative)
[2021-04-24 07:34] LABS: Glucose Point of Care 93 mg/dl (65-105)
== END 2021-04-23 21:25 | disposition home or self-care (01) ==
PROVIDERS: General Practice; Emergency Provider Emergency Medicine; PCP Internal Medicine
DX: R41.82 Altered mental status, unspecified (principal); K21.9 Gastro-esophageal reflux disease without esophagitis; I10 Essential (primary) hypertension; Z92.21 Personal history of antineoplastic chemotherapy; Z98.84 Bariatric surgery status; F41.9 Anxiety disorder, unspecified; F32.9 Major depressive disorder, single episode, unspecified; N20.0 Calculus of kidney; R94.31 Abnormal electrocardiogram [ECG] [EKG]
CPT/HCPCS: 36415; 36600; 51701; 70450; 71045; 72125; 74177; 80053; 80307; 81001; 81025; 82550; 82805; 82948; 83605; 84484; 84702; 85025; 85055; 93005; 96360; 96361; 99284; J7030; Q9967

== ENCOUNTER 2021-08-20 14:06 | Emergency (ER) | payer BC, SELFPAY ==
--- NOTE | ~2021-08-20 | CT_ITS ---
EXAMINATION: CT abdomen pelvis w con DATE: 08/20/2021 15:24 INDICATION: Right lower quadrant abdominal pain TECHNIQUE: Computed tomography (CT) of the abdomen and pelvis was performed with 100 cc Omnipaque 350 intravenous contrast. Automated exposure control and iterative reconstruction technique were employe d. Exam dose: 1074.75 mGy-cm total exam DLP. COMPARISON: 04/23/2021 CT abdomen pelvis FINDINGS: The lung bases are clear. Normal heart size. No pericardial or pleural effusion. Status post cholecystectomy. This likely accounts for mild prominence of the bile ducts. Normal calib er of the pancreatic duct. No hepatic, splenic, pancreatic, and adrenal or suspicious renal space-occupying mass lesion. There i s a small cyst of the right kidney. 3 mm and 2.6 mm lower pole nonobstructing right renal calculi are noted. No ureteral calculus or hydr oureteronephrosis is evident. There is moderately prominent diffuse thickening of the urinary bladder wall which may be due to underdistention; cystitis is not excluded. There is mild uterine enlargement, measuring up to 9.6 cm vertical dimension, 5.4 cm anteroposterior dimension. This fluid throughout the endometrial cavity of the uterus. Normal caliber of the abdominal aorta. No intraperitoneal or retroperitoneal or pelvic mass lesion o r lymphadenopathy. Status post gastric bypass surgery. No bowel obstruction, bowel wall thickening, pneumatosis or intra peritoneal free air normal appendix; no CT evidence of appendicitis or inflammatory changes noted. Prominent chronic anterior wedge compression fracture deformity of L1. No suspicious osteolytic or os teoblastic lesions are noted. IMPRESSION: Status post cholecystectomy Status post gastric bypass surgery 2 nonobstructing small lower pole right renal calculi Chronic L1 compression fracture deformity Reviewed, dictated and finalized at [facility]. Reviewed, dictated and finalized at location A.
[2021-08-20 14:17] VITALS: BP 139/71; PULSE 89; RESP 17; O2SAT 99
[2021-08-20 14:29] LABS: Basophils Percent Auto 0.6 % (0.2-1.2); Eosinophils Absolute Auto 0.2 K/mm3 (0-0.3); Eosinophils Percent Auto 2.4 % (0-4.4); Hematocrit 37.6 % (37.0-47.0); Hemoglobin 11.4 g/dL (12.0-15.0); Immature Granulocyte Absolute 0.02 K/mm3 (0.00-0.031); Immature Granulocyte Percent A 0.3 % (0-0.5); Lymphocytes Absolute Auto 1.44 K/mm3 (0.9-3.2); Lymphocytes Percent Auto 22.7 % (18.3-44.2); Mean Corpuscular HGB Conc 30.3 g/dl (32-36); Mean Corpuscular Volume 82.5 fl (80-100); Mean Platelet Volume 12.2 fl (7.4-10.4); Monocytes Absolute Auto 0.4 K/mm3 (0.1-0.6); Neutrophils Absolute Auto 4.3 K/mm3 (1.3-6.7); Platelet Count Result 254 k/mm3 (150-375); Red Blood Count 4.56 M/mm3 (4.2-5.4); Red Cell Distribution Width 15.4 % (11.5-14.5); White Blood Count 6.4 K/mm3 (4.5-10.0)
[2021-08-20] MEDS: SODIUM CHLORIDE 0.9% IV 1,000 ML 999 ML IV CONT (14:34)
[2021-08-20] MEDS: ONDANSETRON INJ 4 MG/2 ML VIAL IV PUSH (14:39)
[2021-08-20 14:44] LABS: Alanine Aminotransferase 12 U/L (4-35); Albumin Level 4.7 g/dL (3.5-5.1); Alkaline Phosphatase 70 U/L (38-126); Anion Gap 12 mmol/L (8-16); Aspartate Amino Transferase 20 U/L (14-36); Bilirubin,Total 0.4 mg/dL (0.2-1.3); Blood Urea Nitrogen 13 mg/dL (7-17); Calcium 9.6 mg/dL (8.4-10.2); Carbon Dioxide 25 mmol/L (22-30); Chloride 103 mmol/L (98-107); Estimated CRCL calculation 123 ml/min; Estimated Glomerular Filt Rate > 60; Glucose 114 mg/dL (65-110); Lipase 100 U/L (23-300); Potassium 3.1 mmol/L (3.4-5.0); Sodium 140 mmol/L (137-145)
[2021-08-20 16:03] LABS: Add Urine Microscopic? YES; Appearance Urine Cloudy (Clear); Bacteria Urine 3+ /hpf; Bilirubin Urine Negative (Negative); Blood Urine Negative (Negative); Calcium Oxalate Crystals Urine Present /hpf; Color Urine Yellow (Yellow); Glucose Urine UA Negative (Negative); Ketones Urine Trace mg/dL (Negative); Leukocyte Esterase Ur Trace LEU/UL (Negative); Mucus Urine Heavy /lpf; Nitrate Urine Positive (Negative); Protein Urine 1+ mg/dL (Negative); Squamous Epithelial Cell Urine Moderate /hpf (Few); Urobilinogen Urine Negative mg/dL (<2.0); WBC Urine 16-20 /hpf
[2021-08-20 16:05] LABS: Specific Grav Ur 1.032 (1.001-1.035)
[2021-08-20] MEDS: KETOROLAC 15 MG/ML VIAL (*BKC) IV PUSH (16:40)
--- NOTE | 2021-08-20 16:47 | ED.GENADULT ---
HPI - General Adult General Chief complaint: Abdominal Pain <Kylie Irving PA-C - Last Filed: 08/20/21 21:36> Stated complaint: ABD pain <Kylie Irving PA-C - Last Filed: 08/20/21 21:36> Time Seen by Provider: 08/20/21 14:21 <Kylie Irving PA-C - Last Filed: 08/20/21 21:36> Source: patient <TOMMY Cardona Last Filed: 08/20/21 21:36> Mode of arrival: ambulatory <TOMMY Cardona Last Filed: 08/20/21 21:36> Limitations: no limitations <Kylie Irving PA-C - Last Filed: 08/20/21 21:36> History of Present Illness HPI narrative: Patient 36-year-old female with chief complaint of gastric bypass, cholecystectomy and hiatal hernia repair with chief complaint of umbilical and right lower quadrant abdominal pain over the past week. Patient reports the pain is grown constant. She reports some nausea and vomiting. Denies diarrhea or constipation. She denies fever, chills, chest pain, sob, or any other symptoms. <Kylie Irving PA-C - Last Filed: 08/20/21 21:36> Related Data Home medications: Home Medications Medication Instructions Recorded Confirmed omeprazole 40 mg PO DAILY 12/18/19 01/13/21 sertraline 50 mg PO DAILY 12/18/19 01/13/21 iymgjriaavix-ofh-udve-FA-vit K 1 cap PO DAILY 01/10/21 01/13/21 [Bariatric Multivitamins] <Kylie Irving PA-C - Last Filed: 08/20/21 21:36> Allergies/adverse reactions: Allergies Allergy/AdvReac Type Severity Reaction Status Date / Time peanut Allergy Severe RASH, Verified 01/13/21 13:45 THROAT SWELLING adhesive AdvReac Intermediate RASH/ Verified 01/13/21 13:45 BLISTERS lidocaine AdvReac Intermediate Rash Verified 01/13/21 13:45 <TOMMY Cardona Last Filed: 08/20/21 21:36> Review of Systems Review of Systems: CONSTITUTIONAL: Denies fever, chills, or sweats. EYES: Denies visual changes, redness, or discharge. ENT: Denies rhinorrhea, congestion, sore throat, or otalgia. CARDIOVASCULAR: Denies chest pain, palpitations, or edema. RESPIRATORY: Denies cough or dyspnea. GASTROINTESTINAL: Reports abdominal pain, nausea, denies diarrhea. GENITOURINARY: Denies dysuria or hematuria. SKIN: Denies rash or itching. MUSCULOSKELETAL: Denies back pain, myalgia, or joint pain NEUROLOGIC: Denies headache, numbness, dizziness, or weakness. PSYCHIATRIC: Denies anxiety or depression. 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 <Kylie Irving PA-C - Last Filed: 08/20/21 21:36> Surgical History Surgical History: Surgical History History of left salpingo-oophorectomy History of sleeve gastrectomy <Kylie Irving PA-C - Last Filed: 08/20/21 21:36> Family History Family History: Family History Mother Family history of thyroid disease Family history of chronic obstructive pulmonary disease Sibling Hypertension Asthma Family history of arthritis Family history of malignant neoplasm of uterus Father Family history of lung cancer Other Diabetes mellitus Family history of allergic disorder Family history of cardiovascular disease <Kylie Irving PA-C - Last Filed: 08/20/21 21:36> Social History Social History: Social History Smoking status: Never smoker Alcohol intake: current Alcohol use details: 1-2 TIMES/YEAR Substance use: never Substance use type: does not use Spiritual care concerns: No <Kylie Irving PA-C - Last Filed: 08/20/21 21:36> Exam Narrative: GENERAL: Well-appearing, well-nourished. HEAD: Normocephalic,
== END 2021-08-20 18:09 | disposition home or self-care (01) ==
PROVIDERS: Emergency Provider General Practice; PCP Internal Medicine
DX: N39.0 Urinary tract infection, site not specified (principal); K21.9 Gastro-esophageal reflux disease without esophagitis; I10 Essential (primary) hypertension; Z98.84 Bariatric surgery status; N20.0 Calculus of kidney; M48.56XA Collapsed vertebra, not elsewhere classified, lumbar region, initial encounter for fracture; Z92.3 Personal history of irradiation; Z92.21 Personal history of antineoplastic chemotherapy; Z85.79 Personal history of other malignant neoplasms of lymphoid, hematopoietic and related tissues
CPT/HCPCS: 36415; 74177; 80053; 81001; 81025; 83690; 85025; 87077; 87086; 87186; 96365; 96366; 96375; 99284; J0131; J1885; J2405; J7030; Q9967

== ENCOUNTER 2021-08-25 08:46 | Outpatient (CLI) | payer BC, SELFPAY | END 2021-08-25 08:47 | disposition home or self-care (01) | LOC: ANHSURGERY 08:49 | PROVIDERS: PCP Internal Medicine; Visit Provider Obstetrics & Gynecology | DX: N85.2 Hypertrophy of uterus (principal); Z01.818 Encounter for other preprocedural examination | CPT/HCPCS: 36415; 86850; 86900; 86901 ==

== ENCOUNTER 2021-09-01 00:03 | Day surgery (SDC) | payer BC, SELFPAY ==
--- NOTE | 2021-07-05 07:56 | PM.IMHP ---
H&P: HPI History of Present Illness Date/Time: 07/05/21 07:56 36-year-old 5 para 5 admitted for robotic supracervical hysterectomy and salpingectomy secondary to excessive bleeding pelvic pain enlarged uterus. She has had pain and dyspareunia she had an ultrasound that shows thickened endometrium she declined ablation or other less invasive route risks and benefits reviewed including not exclusive of , aspiration pneumonia, bleeding, transfusion, perforation injury to bowel bladder, ureters or other internal organs with the need for open laparotomy. She received the ACOG handout entitled hysterectomy as well as Jessica handout. 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 Surgical History Surgical History History of left salpingo-oophorectomy History of sleeve gastrectomy Family History Family History Mother Family history of thyroid disease Family history of chronic obstructive pulmonary disease Sibling Hypertension Asthma Family history of arthritis Family history of malignant neoplasm of uterus Father Family history of lung cancer Other Diabetes mellitus Family history of allergic disorder Family history of cardiovascular disease Social History Social History Smoking status: Never smoker Alcohol intake: current Alcohol use details: 1-2 TIMES/YEAR Substance use: never Substance use type: does not use Spiritual care concerns: No Meds Home Medications and Allergies Home Medications Medication Instructions Recorded Confirmed Type omeprazole 40 mg PO DAILY 12/18/19 01/13/21 History sertraline 50 mg PO DAILY 12/18/19 01/13/21 History hydrocodone-acetaminophen 1 tablet PO Q6H PRN #14 tablet 01/08/21 01/10/21 Rx uulipqnxzroz-vhs-ixzs-FA-vit K 1 cap PO DAILY 01/10/21 01/13/21 History [Bariatric Multivitamins] hydrocodone-acetaminophen 1 tablet PO Q6H PRN #30 tablet 01/13/21 Rx Allergies Allergy/AdvReac Type Severity Reaction Status Date / Time peanut Allergy Severe RASH, Verified 01/13/21 13:45 THROAT SWELLING adhesive AdvReac Intermediate RASH/ Verified 01/13/21 13:45 BLISTERS lidocaine AdvReac Intermediate Rash Verified 01/13/21 13:45 Exam Const: General: no acute distress Eyes: General: appearance normal, both eyes and all related structures Neck: Neck: supple and no JVD Thyroid: thyroid normal Resp: Effort & Inspection: normal respiratory effort Auscultation: clear to auscultation bilaterally Cardio: Rate: regular rate Rhythm: regular rhythm GI: Inspection: non-distended GI Palp: Yes Soft to palpation, No Tenderness to palpation present (GI) and No Guarding due to palpation present (GI) Auscultation: normal bowel sounds : General: Yes bladder normal to palpation External Female Exam: normal external appearance Speculum Exam - Vagina: normal vaginal discharge and No vaginal bleeding Speculum Exam - Cervix: nontender Bimanual exam- vagina & uterus: bladder normal to palpation, No Cervical tenderness present and enlarged OB/external & speculum: No vaginal bleeding Skin: General skin exam: no rashes or lesions noted Extrem: General: normal to inspection and no edema Psych: Mental Status: mental status grossly normal Affect: normal affect Assessment and Plan Additional Plan impression enlarged uterus pelvic pain bleeding refractory to medical thera
[2021-08-24 11:24] VITALS: BMI 31.4
--- NOTE | 2021-08-29 14:22 | PM.IMHP ---
H&P: HPI History of Present Illness Date/Time: 08/29/21 14:22 36-year-old 5 para admitted for robotic total vaginal hysterectomy and bilateral salpingectomy secondary to pelvic pain dyspareunia enlarged uterus. This patient has enlarged uterus and pain. She has finished with childbearing. She also has heavy P periods and would like to have definitive therapy. Risks and benefits reviewed including but not exclusive of , aspiration pneumonia, bleeding, transfusion, perforation injury to bowel, bladder, ureters, or other internal organs with need for open laparotomy. She received the ACOG handout entitled hysterectomy. She also received the de [facility] handout. She had all questions answered. 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 Surgical History Surgical History History of left salpingo-oophorectomy History of sleeve gastrectomy Family History Family History Mother Family history of thyroid disease Family history of chronic obstructive pulmonary disease Sibling Hypertension Asthma Family history of arthritis Family history of malignant neoplasm of uterus Father Family history of lung cancer Other Diabetes mellitus Family history of allergic disorder Family history of cardiovascular disease Social History Social History Smoking status: Never smoker Alcohol intake: never Alcohol use details: 1-2 TIMES/YEAR Substance use: never Substance use type: does not use Additional living arrangements comments: CHILDREN Spiritual care concerns: No Meds Home Medications and Allergies Home Medications Medication Instructions Recorded Confirmed Type omeprazole 40 mg PO DAILY 12/18/19 08/24/21 History sertraline 50 mg PO DAILY 12/18/19 08/24/21 History sqvictaiocmr-eah-mcgi-FA-vit K 1 cap PO DAILY 01/10/21 08/24/21 History [Bariatric Multivitamins] nitrofurantoin monohyd/m-cryst 100 mg PO Q12H 5 Days #10 cap 08/20/21 08/24/21 Rx [Macrobid] ondansetron HCl [Zofran] 4 mg PO Q8H PRN #14 tablet 08/20/21 08/24/21 Rx Allergies Allergy/AdvReac Type Severity Reaction Status Date / Time peanut Allergy Severe RASH, Verified 08/24/21 11:22 THROAT SWELLING adhesive AdvReac Intermediate RASH/ Verified 08/24/21 11:22 BLISTERS lidocaine AdvReac Intermediate Rash Verified 08/24/21 11:22 Exam Const: General: no acute distress Eyes: General: appearance normal, both eyes and all related structures Neck: Neck: supple and no JVD Thyroid: thyroid normal Resp: Effort & Inspection: normal respiratory effort Auscultation: clear to auscultation bilaterally Cardio: Rate: regular rate Rhythm: regular rhythm GI: Inspection: non-distended GI Palp: Yes Soft to palpation, No Tenderness to palpation present (GI) and No Guarding due to palpation present (GI) Auscultation: normal bowel sounds : External Female Exam: normal external appearance Speculum Exam - Vagina: normal appearance of the vagina Speculum Exam - Cervix: normal appearance of the cervix Bimanual exam- vagina & uterus: enlarged Bimanual Exam- Adnexa, other: normal adnexae Skin: General skin exam: no rashes or lesions noted Extrem: General: normal to inspection and no edema Psych: Mental Status: mental status grossly normal Affect: normal affect Assessment and Plan Additional Plan Impression enlarged uterus bleeding dyspareunia pelvic Plan robotic total vagina
[2021-09-01] VITALS (9 sets, daily range): BP systolic 95–142; BP diastolic 54–80; PULSE 53–80; RESP 14–18; TEMP 36.2–37.6; O2SAT 98–100; BMI 33.3
--- NOTE | 2021-09-01 06:57 | WPDHPUPDATE1 ---
History and Physical Update Update Date/Time: 09/01/21 06:57 History and Physical has been reviewed, including an updated exam of the patient. There are NO changes in the patient's condition. Risks, benefits, and alternatives have been discussed and questions answered. Patient agrees to proceed with procedure.
[2021-09-01] MEDS: ACETAMINOPHEN 500 MG TABLET 1000 MG PO (10:35)
--- NOTE | 2021-09-01 10:38 | WPDANESEPPF ---
Anes - Initial Pre Proc Eval Procedure: Operation Date: 09/01/21 12:00 Proposed Procedures p Robotic Assisted Total Vaginal Hysterectomy, Bilateral Salpingectomy - Christopher Squires MD Date/Time: 09/01/21 10:38 Surgeon: Christopher Squires MD Pre Op Diagnosis: pain,heavy bleeding, enlarge uterus, dysmennorrhea Patient Data Age: 36 Gender: F Height: 1.68 m Weight: 93.7 kg Allergies Allergy/AdvReac Type Severity Reaction Status Date / Time peanut Allergy Severe RASH, Verified 08/24/21 11:22 THROAT SWELLING adhesive AdvReac Intermediate RASH/ Verified 08/24/21 11:22 BLISTERS lidocaine AdvReac Intermediate Rash Verified 08/24/21 11:22 Home Medications Medication Instructions Recorded Confirmed Type omeprazole 40 mg PO DAILY 12/18/19 08/24/21 History sertraline 50 mg PO DAILY 12/18/19 08/24/21 History [id number]-FA-vit K 1 cap PO DAILY 01/10/21 08/24/21 History [Bariatric Multivitamins] nitrofurantoin monohyd/m-cryst 100 mg PO Q12H 5 Days #10 cap 08/20/21 08/24/21 Rx [Macrobid] ondansetron HCl [Zofran] 4 mg PO Q8H PRN #14 tablet 08/20/21 08/24/21 Rx hydrocodone-acetaminophen 1 tablet PO Q4H PRN #30 tablet 09/01/21 Rx Patient hx anesthesia problems: none Family hx anesthesia problems: none Results Review: All pre-operative results and documents have been reviewed as part of the pre-operative evaluation. 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 Surgical History Surgical History History of left salpingo-oophorectomy History of sleeve gastrectomy Family History Family History Mother Family history of thyroid disease Family history of chronic obstructive pulmonary disease Sibling Hypertension Asthma Family history of arthritis Family history of malignant neoplasm of uterus Father Family history of lung cancer Other Diabetes mellitus Family history of allergic disorder Family history of cardiovascular disease Social History Social History Smoking status: Never smoker Alcohol intake: never Alcohol use details: 1-2 TIMES/YEAR Substance use: never Substance use type: does not use Living arrangements: with family Additional living arrangements comments: CHILDREN Spiritual care concerns: No Anes - Eval Final PreProcedure Day of Procedure 09/01/21 10:38 Patient weight: obese Heart: regular rate and rhythm Lungs: clear to auscultation Airway: Mallampati scale class II Neurological: alert and oriented Last oral intake: >/= 8 hours ASA classification: III Emergent: no Anesthetic plan: proceed Anesthesia type and monitoring: general ETT and standard monitoring Results Review: All pre-operative results and documents have been reviewed as part of the pre-operative evaluation. Informed Consent: The patient's anesthetic plan and its attendant risks and benefits were discussed with the patient/family/POA. Questions were solicited and answers provided to the satisfaction of the patient/family/POA.
[2021-09-01] MEDS: LACTATED RINGERS 1,000 ML 30 ML IV CONT ×2 (11:26→13:07)
[2021-09-01] MEDS: KETOROLAC 15 MG/ML VIAL (*BKC) IV PUSH (11:27)
[2021-09-01] MEDS: ceFAZolin 2 GM/D5W 50 ML 2 GM/50 ML BAG IVPB (11:32)
[2021-09-01] MEDS: SCOPOLAMINE 1.5 MG PATCH TRANSDERM (11:42)
--- NOTE | 2021-09-01 12:59 | W.PM.PROC2 ---
Procedure Note - Detailed Date of Procedure 09/01/21 Pre-op Diagnosis pain,heavy bleeding, enlarge uterus, dysmennorrhea Post-op Diagnosis same Procedure Performed Attic total vaginal hysterectomy and right salpingectomy Surgeon Christopher Squires MD Anesthesia general Indications This is a 36-year-old female with enlarged uterus and a history of pelvic pain and dyspareunia Findings Enlarged uterus. Absent ovary and left tube. Normal-appearing right tube a small ovarian cyst on the right ovary. The uterus was enlarged and adherent anteriorly to the abdominal wall. Description of Procedure Patient was prepped draped in the in the normal sterile fashion placed in the dorsal lithotomy position. Under excellent general endotracheal anesthesia weighted speculum placed posterior fornix vagina. Anterior lip of the cervix grasped with single-tooth tenaculum the uterus sounded to 11cm. Serial dilatation with fragmented dilators performed followed by passes the 10. [place] and the 3. Cold cup. A 16 Khmer catheter was placed in the bladder and drained of clear urine. The weighted speculum was removed and the gloves were changed. A supraumbilical incision made in the Veress needle passed in the abdomen. The abdomen filled with CO2 gas 15mmHg. The 8mm trocar advanced the abdomen downside visualized no injury seen. Patient placed in Trendelenburg and right and left lateral quadrant incisions were made the 8mm trocars advanced under direct visualization assuring no injury. Right upper quadrant incision made the 8mm trocar advanced under direct visualization assuring no injury. The robot was docked. Attention was turned to the career guidance counselor. The uterus was large irregular and adherent anteriorly to the abdominal wall. The ovary and tube on the left were surgically absent. Great vascularity was seen no surrounding this large uterus as well. Anteriorly a round ligament on the left was grasped, burned, cut. A bladder flap was formed by sharply dissecting the peritoneum and reflecting the bladder caudally to the opposite round ligament which was clamped, burned, cut. Next the right fallopian tube was sharply dissected away from the ovary and tube using monopolar cautery. The left utero-ovarian ligament was skeletonized to conserve left ovary. This was clamped, burned, cut and brought to the previously cut round ligament. The cardinal and broad ligaments on the left were serially skeletonized. These were clamped, burned, cut and brought down to the level uterine vessels there were large and tortuous and individually clamped, burned, cut. In like fashion the cardinal broad ligaments on the right were skeletonized. These were clamped, burned, cut and hugging the cervix and uterus brought down to the level of the uterine vessels. These again were large and tortuous and were individually clamped, burned, cut. Excellent blanching of the uterus was seen in a colpotomy incision made. Uterus cervix and right fallopian tube removed through the vagina. Blood loss estimated at [id number]. The vagina was then closed with continuous running 0V lock from lateral edge to lateral edge back to the midline. Irrigation undertaken to clear and [place]ing term placed on the raw surface area all pedicles appeared dry and the robot was undocked. The gas removed from the abdomen. The trocars removed from the abdomen and the incisions closed with 4 Monocryl glue. The instruments removed from the vagina. The patient was awakened and went to recovery in satisfactory condition. All sponge, needle, instrument counts were correct. There were no immediate complications noted T Estimated Blood Loss 25 Drains No Packing No Pathology yes Complications No immediate complications Condition stable Disposition PACU
[2021-09-01] MEDS: fentaNYL CITRATE INJ (*CRX) 100 MCG/2 ML VIAL 25 MCG IV PUSH ×5 (13:25→13:53)
--- NOTE | 2021-09-01 13:34 | SUR.PHASEI ---
Simple mask removed at 1332.
--- NOTE | 2021-09-01 14:30 | PC.NURSE ---
This patient, Su Angulo, was received from PACU on 09/01/21 at 1430. Patient/family oriented to unit policies and routines
[2021-09-01] MEDS: DEXTROSE 5%/0.45% SOD CHL 1,000 ML 125 ML IV CONT (14:49)
[2021-09-01] MEDS: KETOROLAC 30 MG/ML VIAL (*BKC) IV PUSH ×2 (14:51→22:45)
[2021-09-01] MEDS: HYDROcodone/acetaminophen (*CRX) 5-325 MG TABLET 1 TAB PO ×2 (19:14→22:45)
[2021-09-02 04:00] VITALS: BP 102/64; PULSE 66; RESP 16; TEMP 36.8; O2SAT 99
[2021-09-02] MEDS: HYDROcodone/acetaminophen (*CRX) 5-325 MG TABLET 1 TAB PO (04:07)
[2021-09-02 04:49] LABS: Basophils Percent Auto 0.4 % (0.2-1.2); Eosinophils Absolute Auto 0.3 K/mm3 (0-0.3); Eosinophils Percent Auto 5.4 % (0-4.4); Hematocrit 28.2 % (37.0-47.0); Hemoglobin 8.2 g/dL (12.0-15.0); Immature Granulocyte Absolute 0.01 K/mm3 (0.00-0.031); Immature Granulocyte Percent A 0.2 % (0-0.5); Lymphocytes Absolute Auto 0.98 K/mm3 (0.9-3.2); Lymphocytes Percent Auto 17.6 % (18.3-44.2); Mean Corpuscular HGB Conc 29.1 g/dl (32-36); Mean Platelet Volume 14.1 fl (7.4-10.4); Monocytes Absolute Auto 0.5 K/mm3 (0.1-0.6); Monocytes Percent Auto 8.1 % (2.6-8.5); Neutrophils Absolute Auto 3.8 K/mm3 (1.3-6.7); Neutrophils Percent Auto 68.3 % (45.5-73.1); Platelet Count Result 136 k/mm3 (150-375); Red Blood Count 3.28 M/mm3 (4.2-5.4); Red Cell Distribution Width 16.7 % (11.5-14.5); White Blood Count 5.6 K/mm3 (4.5-10.0)
--- NOTE | 2021-09-02 07:47 | PM.GYNPNOP ---
EX CHEF - A/P Postoperative Procedures: Procedures Operation Date: 09/01/21 12:00 Actual Procedure Side Surgeon p Robotic Assisted Total Vaginal Hysterectomy, Right Salpingectomy Right Christopher Squires MD A: POD#1, doing well. P: Home to f/u 2 weeks. Time Spent With Patient Time with patient: less than 15 minutes EX CHEF- PN:Subj Post-Op Subjective Date/time seen: 09/02/21 07:47 Interval history: Pain OK. Tolerating diet. Voiding. Would like to go home. Exam Narrative: AVSS I/O OK ABD soft, nontender. Incisions c/d/i. EXT nontender EX CHEF - PN: Obj Data Vital Signs Vital Signs: Vital Signs - 24 hr 09/01/21 10:20 09/01/21 13:07 09/01/21 13:20 Temperature 36.7 C 36.3 C L 36.2 C L Pulse Rate 75 67 53 L Respiratory Rate 14 18 18 Blood Pressure 142/78 H 130/80 113/69 Pulse Oximetry 100 100 100 09/01/21 13:35 09/01/21 13:50 09/01/21 14:05 Temperature Pulse Rate 62 74 80 Respiratory Rate 18 17 16 Blood Pressure 107/65 110/65 114/76 Pulse Oximetry 100 100 100 09/01/21 14:35 09/01/21 19:31 09/01/21 23:00 Temperature 36.8 C 37.6 C 36.7 C Pulse Rate 67 71 60 Respiratory Rate 16 18 16 Blood Pressure 127/70 95/54 L 100/62 Pulse Oximetry 100 100 98 09/02/21 04:00 Temperature 36.8 C Pulse Rate 66 Respiratory Rate 16 Blood Pressure 102/64 Pulse Oximetry 99 Intake/Output Intake/Output: Intake & Output 08/30/21 08/31/21 09/01/21 09/02/21 23:59 23:59 23:59 23:59 Intake Total 2100 200 Output Total 965 200 Balance 1135 0 Meds/Results Medications: Active Medications Generic Name Dose Route Start Last Admin Trade Name Freq PRN Reason Stop Dose Admin Hydrocodone Bitart/Acetaminophen 1 tab 09/01/21 14:15 09/02/21 04:07 Hydrocodone/Acetaminophen (*Crx) 5-325 Mg Tablet PO 1 tab Q3H PRN Administration Pain Rated 5 or Less Hydrocodone Bitart/Acetaminophen 1 tab 09/01/21 14:15 Hydrocodone/Acetaminophen (*Crx) 10-325 Mg Tablet PO Q3H PRN Pain Rated 6 or Greater Enoxaparin Sodium 40 mg 09/02/21 09:00 Enoxaparin 40 Mg/0.4 Ml Syringe SUB-Q DAILY LOUISE Dextrose/Sodium Chloride 1,000 mls @ 125 mls/hr 09/01/21 14:15 09/01/21 23:00 Dextrose 5% Sodium Chloride 0.45% IV CONT Infused .Q8H LOUISE Infusion Ibuprofen 600 mg 09/01/21 14:15 Ibuprofen 600 Mg Tablet PO Q6H PRN Cramping Ketorolac Tromethamine 30 mg 09/01/21 14:15 09/01/21 22:45 Ketorolac 30 Mg/Ml Vial (*Bkc) IV PUSH 09/06/21 14:14 30 mg Q6H PRN Administration Pain Rated 4-6 Naloxone HCl 0.1 mg 09/01/21 14:15 Naloxone Hcl 0.4 Mg/Ml Vial IV PUSH Q2M PRN Respiratory rate less than 10 Ondansetron HCl 4 mg 09/01/21 14:15 Ondansetron Inj 4 Mg/2 Ml Vial IV PUSH Q6H PRN Nausea And Vomiting Simethicone 80 mg 09/01/21 14:15 Simethicone 80 Mg Tab.Chew PO Q2H PRN Gas Labs CBC & Chem 7: 09/02/21 03:53 Labs: Laboratory Results - last 24 hr 09/02/21 03:53 WBC 5.6 RBC 3.28 L Hgb 8.2 L D Hct 28.2 L MCV 86.0 MCH 25.0 L MCHC 29.1 L RDW 16.7 H Plt Count 136 L MPV 14.1 H Immature Gran % (Auto) 0.2 Neut % (Auto) 68.3 Lymph % (Auto) 17.6 L [place] % (Auto) 8.1 Eos % (Auto) 5.4 H Baso % (Auto) 0.4 Lymph # (Auto) 0.98 [place] # (Auto) 0.5 Eos # (Auto) 0.3 Baso # (Auto) 0.0 Abs Immat Gran (auto) 0.01 Absolute Neuts (auto) 3.8 Absolute Nucleated RBC 0.0 Nucleated RBC % 0.0 % Immature Plt Fraction 15.0 H
--- NOTE | 2021-09-02 07:48 | PM.DS ---
DS: Admitting Diagnosis Discharge Date 09/02/21 Admitting Diagnosis Pelvic pain DS: Discharge Diagnosis Discharge Diagnosis (1) Pelvic pain: Code(s): R10.2 - Pelvic and perineal pain Status: Acute DS: Summary Hospital Course Hospital Course: Admitted on the date of scheduled surgery. Please see Dr. Marisel Brooks's note for details. Did well postop and was able to go home on POD#1. DS: Data Data Completed and Pending Pending studies at discharge: Pending at discharge 09/01/21 12:24 Surgical [PTH] Routine Labs on day of discharge: Labs from last 24 hours 09/02/21 03:53 WBC 5.6 RBC 3.28 L Hgb 8.2 L D Hct 28.2 L MCV 86.0 MCH 25.0 L MCHC 29.1 L RDW 16.7 H Plt Count 136 L MPV 14.1 H Immature Gran % (Auto) 0.2 Neut % (Auto) 68.3 Lymph % (Auto) 17.6 L [place] % (Auto) 8.1 Eos % (Auto) 5.4 H Baso % (Auto) 0.4 Lymph # (Auto) 0.98 [place] # (Auto) 0.5 Eos # (Auto) 0.3 Baso # (Auto) 0.0 Abs Immat Gran (auto) 0.01 Absolute Neuts (auto) 3.8 Absolute Nucleated RBC 0.0 Nucleated RBC % 0.0 % Immature Plt Fraction 15.0 H Discharge Plan Discharge Patient Disposition: Home, Self-Care Discharge Instructions: Call or return if temperature above 100.4? F, increased abdominal pain, increased vaginal bleeding or any new problems. Stand Alone Forms: General Discharge Instructions Follow-up/Referrals: Christopher Squires MD [Physician] - Discharge Medications: New hydrocodone-acetaminophen 5-325 mg tablet 1 tablet PO Q4H PRN (Reason: pain) Qty: 30 RF: 0 Continued omeprazole 40 mg capsule,delayed release(DR/EC) 40 mg PO DAILY RF: 0 sertraline 50 mg tablet 50 mg PO DAILY RF: 0 Bariatric Multivitamins 45 mg iron- 800 mcg-120 mcg Capsule 1 cap PO DAILY RF: 0 ondansetron HCl [Zofran] 4 mg tablet 4 mg PO Q8H PRN (Reason: nausea and vomiting) Qty: 14 RF: 0 nitrofurantoin monohyd/m-cryst [Macrobid] 100 mg capsule 100 mg PO Q12H 5 Days Qty: 10 RF: 0
[2021-09-02] MEDS: HYDROcodone/acetaminophen (*CRX) 10-325 MG TABLET 1 TAB PO ×3 (07:58→15:28)
[2021-09-02 08:00] VITALS: BP 94/56; PULSE 66; RESP 16; TEMP 36.8; O2SAT 100; O2SAT 99
[2021-09-02] MEDS: KETOROLAC 30 MG/ML VIAL (*BKC) IV PUSH (10:50)
--- NOTE | 2021-09-02 11:10 | WPDANESPN ---
Anes - Prog Note Post-Op Date/Time: 09/02/21 11:10 Cardiovascular status: normal Respiratory status: normal Airway patency: baseline Mental status: baseline Post-Op hydration status: normal Vital Signs: Last Vital Signs Temp 98.2 F 09/02/21 04:00 Pulse 66 09/02/21 04:00 Resp 16 09/02/21 04:00 BP 102/64 09/02/21 04:00 Pulse Ox 99 09/02/21 04:00 Pain Score (VAS): 3 I/O: Intake & Output 09/01/21 09/02/21 09/02/21 23:59 07:59 15:59 Intake Total 1700 200 Output Total 875 200 Balance 825 0 Laboratory Tests 09/02/21 03:53 09/02/21 03:53 WBC 5.6 RBC 3.28 L Hgb 8.2 L D Hct 28.2 L MCV 86.0 MCH 25.0 L MCHC 29.1 L RDW 16.7 H Plt Count 136 L MPV 14.1 H Immature Gran % (Auto) 0.2 Neut % (Auto) 68.3 Lymph % (Auto) 17.6 L [place] % (Auto) 8.1 Eos % (Auto) 5.4 H Baso % (Auto) 0.4 Lymph # (Auto) 0.98 [place] # (Auto) 0.5 Eos # (Auto) 0.3 Baso # (Auto) 0.0 Abs Immat Gran (auto) 0.01 Absolute Neuts (auto) 3.8 Absolute Nucleated RBC 0.0 Nucleated RBC % 0.0 % Immature Plt Fraction 15.0 H Post-procedural complaints: none Patient Feedback: Patient satisfied with anesthetic care.
[2021-09-02] MEDS: ENOXAPARIN 40 MG/0.4 ML SYRINGE SUB-Q (11:46)
[2021-09-02 12:00] VITALS: PULSE 66; RESP 16; O2SAT 99
--- NOTE | 2021-09-02 19:49 | PC.NURSE ---
1400 States her ride is on his way and she is ready for discharge instructions. 1711 Ride is here, pt discharged
== END 2021-09-02 17:11 | disposition home or self-care (01) ==
LOC: ANHSURGERY 10:10 → ANHOB2 14:29
PROVIDERS: PCP Internal Medicine; Visit Provider Obstetrics & Gynecology
PROC: (CPT 58552; principal; 2021-09-01 12:00)
DX: R10.2 Pelvic and perineal pain (principal); N93.9 Abnormal uterine and vaginal bleeding, unspecified; N94.10 Unspecified dyspareunia; N72 Inflammatory disease of cervix uteri; N80.0 Endometriosis of uterus; N73.6 Female pelvic peritoneal adhesions (postinfective); N83.8 Other noninflammatory disorders of ovary, fallopian tube and broad ligament; N83.201 Unspecified ovarian cyst, right side; I10 Essential (primary) hypertension; K21.9 Gastro-esophageal reflux disease without esophagitis; Z98.84 Bariatric surgery status; Z85.89 Personal history of malignant neoplasm of other organs and systems; Z92.21 Personal history of antineoplastic chemotherapy; Z92.3 Personal history of irradiation; E66.9 Obesity, unspecified; Z68.33 Body mass index [BMI] 33.0-33.9, adult
CPT/HCPCS: 58552; S2900; 36415; 85025; 85055; 88307; 99199; A9270; J0690; J1100; J1170; J1650; J1885; J2250; J2405; J2704; J2710; J3010; J7030; J7120

== ENCOUNTER 2021-11-03 08:56 | Emergency (ER) | payer BC, SELFPAY ==
--- NOTE | ~2021-11-03 | XR_ITS ---
EXAMINATION: XR wrist RT 2V INDICATION: Right wrist fracture post reduction TECHNIQUE: Two views of the right wrist are obtained. COMPARISON: 0915 hours FINDINGS: The previously described comminuted intra-articular fracture of the right wrist has been re duced and casted. Alignment is near-anatomic. No additional acute fracture is identified. Again noted is a healed diaphyseal fracture of the fifth metacarpal. IMPRESSION: 1. Reduced and casted intra-articular fracture of the distal radius in near-anatomic alignment. Reviewed, dictated and finalized at location A. EXAMINER IMPRESSION: 1. Reduced and casted intra-articular fracture of the distal radius in near-megan tomic alignment.
--- NOTE | ~2021-11-03 | XR_ITS ---
EXAMINATION: XR wrist RT min 3V DATE: 11/03/2021 09:16 INDICATION: Right wrist injury and pain. TECHNIQUE: 3 views of right wrist were obtained. COMPARISON: None. FINDINGS: There is a comminuted fracture of distal radius involving the distal radioulnar joint and d istal articular surface. The main distal fracture fragment demonstrates impaction, dorsal angulation, and 3 mm radial displacement. There is 19 degrees dorsal tilt of the distal articular surface. The u lnar styloid is intact. There is an old healed fracture of diaphysis of fifth metacarpal. 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 IMPRESSION: 1. Comminuted fracture of distal radius. Reviewed, dictated and finalized at location A. PHERE CONSULTANT
[2021-11-03 09:01] VITALS: BP 131/93; PULSE 80; RESP 18; TEMP 36.2; O2SAT 100
[2021-11-03] MEDS: HYDROcodone/acetaminophen (*CRX) 5-325 MG TABLET 1 TAB PO (09:06)
[2021-11-03] MEDS: HYDROmorphone HCL INJ (*CRX) 1 MG/ML SYR IV PUSH (11:17)
[2021-11-03] MEDS: ONDANSETRON INJ 4 MG/2 ML VIAL IV PUSH (11:44)
--- NOTE | 2021-11-03 12:05 | ED.UPPEXIN ---
HPI - Extremity Injury (Upper) General Chief Complaint: Extremity Injury, Upper Stated Complaint: right arm injury Time Seen by Provider: 11/03/21 08:57 History of Present Illness HPI narrative: Patient is a 36-year-old female who presents ER with right wrist pain. She fell down 4 steps onto outstretched hand. Sudden onset pain and deformity. Has throbbing and needle sensation to the wrist/forearm/hand. No additional injuries. No blood thinners. Related Data Home Medications Medication Instructions Recorded Confirmed omeprazole 40 mg PO DAILY 12/18/19 08/24/21 sertraline 50 mg PO DAILY 12/18/19 08/24/21 Bariatric Multivitamins 1 cap PO DAILY 01/10/21 08/24/21 Allergies Allergy/AdvReac Type Severity Reaction Status Date / Time peanut Allergy Severe RASH, Verified 11/03/21 09:03 THROAT SWELLING adhesive AdvReac Intermediate RASH/ Verified 11/03/21 09:03 BLISTERS lidocaine AdvReac Intermediate Rash Verified 11/03/21 09:03 Review of Systems Review of Systems: All systems reviewed & are unremarkable except as noted in HPI and below Constitutional: Constitutional: Denies chills, Denies fever(s) and Denies weakness ENT: Denies nasal congestion and Denies sore throat Cardiovascular: Cardiovascular: Denies chest pain, Denies rapid heart rate and Denies radiating jaw, neck or arm pain Respiratory: Respiratory: Denies cough and Denies dyspnea Musculoskeletal: Musculoskeletal: Reports arthralgias and Reports joint swelling Neurologic: Denies syncope, Denies focal weakness and Denies numbness PMFSH Past Medical History Medical History History of gastroesophageal reflux (GERD) Hypertension 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 Surgical History Surgical History History of left salpingo-oophorectomy History of sleeve gastrectomy Family History Family History Mother Family history of thyroid disease Family history of chronic obstructive pulmonary disease Sibling Hypertension Asthma Family history of arthritis Family history of malignant neoplasm of uterus Father Family history of lung cancer Other Diabetes mellitus Family history of allergic disorder Family history of cardiovascular disease Social History Social History Smoking status: Never smoker Alcohol intake: never Alcohol use details: 1-2 TIMES/YEAR Substance use: never Substance use type: does not use Additional living arrangements comments: CHILDREN Spiritual care concerns: No Exam Narrative: GENERAL: Well-appearing, well-nourished, and in no acute distress. HEAD: Normocephalic, atraumatic. CHEST: Clear to auscultation. No respiratory distress. HEART: Regular rate and rhythm. Normal peripheral pulses. EXTREMITIES: Active range of motion right wrist with deformity at the wrist. Tender to palpation. Neurovascular intact proximal distal to the area of injury. SKIN: Warm, dry, no rash. NEURO: Alert and oriented x3. PSYCH: Normal mood and affect. Course Course Emergency Course: Informed of results and treatment plan. Discussed case with orthopedic surgery who will follow up in clinic. Vital Signs Vital signs: Vital Signs Temperature 97.2 F L 11/03/21 09:01 Pulse Rate 80 11/03/21 09:01 Respiratory Rate 18 11/03/21 09:01 Blood Pressure 131/93 H 11/03/21 09:01 Pulse Oximetry 100 11/03/21 09:01 Temperature 98.0 F 11/03/21 12:31 Pulse Rate 78 11/03/21 12:31 Respiratory Rate 14 11/03/21 12:31 Blood Pressure 135/78 11/03/21 12:31 Pulse Oximetry 99 11/03/21 12:31 Procedures Orthopedic Fracture Reduction Fracture #1: Fracture Reduction date: 11/03/21 Fracture Reduction time: 11:20 Time Out Perf
[2021-11-03 12:31] VITALS: BP 135/78; PULSE 78; RESP 14; TEMP 36.7; O2SAT 99
== END 2021-11-03 12:31 | disposition home or self-care (01) ==
PROVIDERS: Emergency Provider Emergency Medicine; PCP Internal Medicine
DX: S52.591A Other fractures of lower end of right radius, initial encounter for closed fracture (principal); K21.9 Gastro-esophageal reflux disease without esophagitis; I10 Essential (primary) hypertension; Z98.84 Bariatric surgery status; Z85.72 Personal history of non-Hodgkin lymphomas; Z92.21 Personal history of antineoplastic chemotherapy; W10.9XXA Fall (on) (from) unspecified stairs and steps, initial encounter
CPT/HCPCS: 25605; 73100; 73110; 96374; 96375; 99285; A4565; A9270; J1170; J2405

== ENCOUNTER 2021-11-08 01:20 | Day surgery (SDC) | payer BC, SELFPAY ==
[2021-11-06 08:48] VITALS: BMI 32.1
--- NOTE | 2021-11-06 08:56 | PC.NURSE ---
Report to the Outpatient Waiting Room, entrance under the green pavilion located off [facility], at time 1000 on date 11/08/21. OR Time: 1200. - You will be asked a series of questions to screen for COVID 19 for your protection. - A mask is required within the hospital. - No visitors are allowed at this time. Preoperative COVID Testing Requirements: No COVID Test needed if: (proof is required; if not received patient will have Rapid Test prior to entry) - Patient has received COVID Vaccine at least 14 days prior to procedure date or - Patient has positive COVID test result within last 90 days of surgery date. COVID Test needed if above criteria is not met Patients may have clear liquids (water, carbonated beverages, clear teas, apple juice) until 3 hours prior to surgery with a maximum of 20 ounces. - No food from midnight until time of surgery Take the following medications with a SIP of water the morning of surgery: PAIN PILL (IF NEEDED), SERTRALINE, HYDROXYZINE (IF NEEDED) Medications to discontinue per physician: VITAMINS Date to take last dose: 11/05/21 Please no make-up, nail japanese, hairspray, perfume, deodorant, or body powder the day of surgery. No jewelry (including any body piercings) or valuables the day of surgery, leave them at home. Please take a shower or bath the night before, or the morning of, surgery with an antibacterial soap. Wear comfortable, loose fitting clothing. - Jewelry must be removed prior to entering the operating room. Rings and piercings that are not removed may be cut off. - The hospital will not accept responsibility for valuables. - Please leave all valuables, including medications, at home the day of surgery. If you are going home after surgery, a licensed cattle driver must drive you home. - NO public transportation without another adult. - We recommend that an adult stay with you for 24 hours following discharge. - We also recommend that you do not drive, make important decision, drink alcoholic beverages, or take any drugs that were not prescribed by your health care provider for at least 24 hours after your discharge time. Follow any additional instructions given to you from your surgeon. Telephone instructions given to MARY MCNEIL and asked if any additional questions and then verbalized understanding. Patient advised to call surgeon office or pre surgery nurse liaison [phone] if any additional questions.
[2021-11-08] VITALS (8 sets, daily range): BP systolic 123–151; BP diastolic 66–97; PULSE 61–96; RESP 16–21; TEMP 36.1–36.8; O2SAT 95–100
--- NOTE | ~2021-11-08 | XR_ITS ---
EXAMINATION: XR surgery orthopedic EXAM DATE: 11/08/2021 16:20 INDICATION: ORIF Right Wrist TECHNIQUE: Fluoroscopy used during right distal radial ORIF performed by Dr. Julián Zavala MD. Radiologist was not present for the imaging or procedure. Total fluoroscopic time of 342 seconds. Th e DAP for this procedure was 0.149 mGym2. A total of 5 images sent to PACS from the exam. FINDINGS: Comminuted right radial distal metaphyseal intra-articular fractures in anatomic position. There is an orthopedic plate along the volar aspect of the metaphysis, with supporting screws. Ezekiel elate with procedure note. IMPRESSION: Fluoroscopy used during right radial metaphyseal ORIF. Reviewed, dictated and finalized at location A. SIGNAL WIRER
--- NOTE | 2021-11-08 07:16 | WPDHPUPDATE1 ---
History and Physical Update Update Date/Time: 11/08/21 07:16 History and Physical has been reviewed, including an updated exam of the patient. There are NO changes in the patient's condition. Risks, benefits, and alternatives have been discussed and questions answered. Patient agrees to proceed with procedure.
--- NOTE | 2021-11-08 07:47 | WPDANESEPPF ---
Anes - Initial Pre Proc Eval Procedure: Operation Date: 11/08/21 12:00 Proposed Procedures p Open Reduction Internal Fixation Right Wrist - Julián Zavala MD Date/Time: 11/08/21 07:47 Surgeon: Julián Zavala MD Pre Op Diagnosis: right distal radius fx Patient Data Age: 36 Gender: F Height: 1.65 m Weight: 87.6 kg Allergies Allergy/AdvReac Type Severity Reaction Status Date / Time peanut Allergy Severe RASH, Verified 11/08/21 10:30 THROAT SWELLING adhesive AdvReac Intermediate RASH/ Verified 11/08/21 10:30 BLISTERS lidocaine AdvReac Intermediate Rash Verified 11/08/21 10:30 Home Medications Medication Instructions Recorded Confirmed Type omeprazole 40 mg PO DAILY 12/18/19 11/08/21 History sertraline 50 mg PO DAILY 12/18/19 11/08/21 History Bariatric Multivitamins 1 cap PO DAILY 01/10/21 11/08/21 History hydrocodone-acetaminophen 1 tablet PO Q6H PRN #20 tablet 11/03/21 11/06/21 Rx hydroxyzine pamoate 25 mg PO PRN PRN 11/06/21 11/08/21 History lurasidone [Latuda] 20 mg PO QPM 11/06/21 11/08/21 History Patient hx anesthesia problems: post op nausea/vomiting Family hx anesthesia problems: none Results Review: All pre-operative results and documents have been reviewed as part of the pre-operative evaluation. 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 PONV (postoperative nausea and vomiting) Surgical History Surgical History History of left salpingo-oophorectomy History of sleeve gastrectomy Family History Family History Mother Family history of thyroid disease Family history of chronic obstructive pulmonary disease Sibling Hypertension Asthma Family history of arthritis Family history of malignant neoplasm of uterus Father Family history of lung cancer Other Diabetes mellitus Family history of allergic disorder Family history of cardiovascular disease Social History Social History (Reviewed 11/07/21 @ 08:51 by RADHA Lezama Smoking status: Never smoker Alcohol intake: current Substance use: never Substance use type: does not use Living arrangements: with family Additional living arrangements comments: CHILDREN Spiritual care concerns: No Anes - Eval Final PreProcedure Day of Procedure 11/08/21 07:47 Patient weight: obese Heart: regular rate and rhythm Lungs: clear to auscultation and normal air movement Airway: Mallampati scale class II Neurological: alert and oriented Last oral intake: >/= 8 hours ASA classification: III Emergent: no Anesthetic plan: proceed Anesthesia type and monitoring: general LMA and standard monitoring Results Review: All pre-operative results and documents have been reviewed as part of the pre-operative evaluation. Informed Consent: The patient's anesthetic plan and its attendant risks and benefits were discussed with the patient/family/POA. Questions were solicited and answers provided to the satisfaction of the patient/family/POA.
--- NOTE | 2021-11-08 07:47 | WPDANESPNB ---
Anes - Peripheral Nerve Block Date/Time: 11/08/21 07:47 I have discussed with the patient/family/POA the placement of a peripheral nerve block for post-operative pain management, including associated risks, benefits, complications, and side effects. Alternative methods of post-operative analgesia were detailed. Questions were solicited and answers provided to the satisfaction of the patient/family/POA. Time-Out: A pre-procedural Time-Out was completed immediately before starting the procedure and confirmed: Patient Identification, Site, Procedure, Patient Position and the Availability of Requisite Equipment. Clinical Indications: Acute post-operative pain management requested by the operative surgeon. Nerve Block Insertion Note Anes-nerve block: supraclavicular left Patient position: supine Skin prep: chlorhexidine Needle: 22 gauge, stimulating, insulated echogenic needle. Needle length: 50 mm Technique: ultrasound Injectate: bupivacaine 0.5% with epi 5 mcg/ml (30cc- no epi) Observations: tolerated well Complications: none Procedure start time:: 1355 Procedure end time:: 1359
[2021-11-08] MEDS: ACETAMINOPHEN 500 MG TABLET 1000 MG PO (10:45)
[2021-11-08] MEDS: LACTATED RINGERS 1,000 ML 30 ML IV CONT ×2 (11:10→16:32)
[2021-11-08] MEDS: KETOROLAC 15 MG/ML VIAL (*BKC) IV PUSH (11:37)
[2021-11-08] MEDS: SCOPOLAMINE 1.5 MG PATCH TRANSDERM (11:53)
[2021-11-08] MEDS: ceFAZolin 2 GM/D5W 50 ML 2 GM/50 ML BAG IVPB (14:06)
--- NOTE | 2021-11-08 17:06 | P.OP_ITS ---
Procedure Note - Detailed Date of Procedure 11/08/21 Pre-op Diagnosis right distal radius fx Post-op Diagnosis same Procedure Performed ORIF RIGHT DISTAL RADIUS FRACTURE Surgeon Julián Zavala MD Anesthesia general Description of Procedure THE RIGHT UPPER EXTREMITY WAS PREPPED AND DRAPED IN THE STERILE FASHION. A STANDARD HENRYS APPROACH WAS USED TO THE VOLAR WRIST. DISSECTION THROUGH THE SKIN AND SUBCUTANEOUS TISSUE WAS PREFORMED. THE FCR TENDON WAS IDENTIFIED. THE RADIAL ARTERY WAS IDENTIFIED AND RETRACTED. THE THE FLEXOR POLLICIS AND THE COMMON FLEXOR TENDONS WERE IDENTIFIED AND RETRACTED. THE PRONATOR QUADRATUS WAS IDENTIFIED AND INCISED EXPOSING THE FRACTURE. IT WAS HIGHLY COMMINUTED. A TRI AL REDUCTION WAS PREFORMED AND FIXED WITH A K WIRE. NEXT A BIOMET DISTAL RADIUS LOCKING PLATE WAS PLACED BRIDGING THE FRACTURE FRAGMENTS. SCREWS WERE PLACED DISTALLY AND PROXIMALLY. THE DISTAL SCREWS WERE IMAGED AND FOUND TO BE EXTRA ARTICULAR. C ARM IMAGES WERE PREFORMED AND HARDWARE AND FRACTURE FRAGMENTS WERE IN GOOD POSITION. THE TOURNIQUET WAS DEFLATED AND THE BLEEDERS WERE CAUTERIZED. THE FASCIA AND SUB CUTANEOUS LAYERS WERE APPROXIMATED WITH 3-0 VICRYL. THE SKIN WAS APPROXIMATED WITH [place]. STERILE DRESSING AND SPLINT WAS APPLIED. PATIENT WAS EXTUBATED. Estimated Blood Loss 20 Complications No immediate complications Condition stable Disposition PACU
== END 2021-11-08 18:45 | disposition home or self-care (01) ==
PROVIDERS: PCP Internal Medicine; Visit Provider Orthopaedic Surgery
PROC: (CPT 25575; principal; 2021-11-08 12:00)
DX: S52.571A Other intraarticular fracture of lower end of right radius, initial encounter for closed fracture (principal); G89.18 Other acute postprocedural pain; W10.9XXA Fall (on) (from) unspecified stairs and steps, initial encounter; K21.9 Gastro-esophageal reflux disease without esophagitis; I10 Essential (primary) hypertension; Z85.89 Personal history of malignant neoplasm of other organs and systems; Z92.21 Personal history of antineoplastic chemotherapy; Z92.3 Personal history of irradiation
CPT/HCPCS: 25608; 64415; A9270; C1713; J0690; J1100; J1885; J2250; J2370; J2405; J2704; J3010; J7120

== ENCOUNTER 2021-12-23 16:38 | Emergency (ER) | payer BC, SELFPAY ==
--- NOTE | ~2021-12-23 | CT_ITS ---
EXAMINATION: CT abdomen pelvis w con INDICATION: Generalized abdominal pain TECHNIQUE: Computed tomographic images of the abdomen and pelvis were obtained after the administrati on of 100 cc of Omnipaque 350 intravenous contrast. The dose-length product (DLP) was 601.19 mGy-cm. Automated exposure control and iterative reconstruction technique were employed. COMPARISON: 08/20/2021 FINDINGS: The lung bases are clear. The heart size is normal. Changes of gastric bypass are noted. Th e gallbladder is surgically absent. There is mild enlargement of the common bile duct and central int rahepatic ducts which is likely due to post cholecystectomy state. The liver, spleen, pancreas, and a drenal glands are normal. There is a 3 mm nonobstructing stone of the right kidney lower pole. There are punctate nonobstructing stones of the left kidney. There is no free intraperitoneal gas or eviden ce of bowel obstruction. No pathologically enlarged abdominal or pelvic lymph nodes are identified. T here is a chronic compression fracture of L1. Mild lumbar spondylosis is noted. There is a healing fr acture of the right 11th rib posteriorly. IMPRESSION: 1. No CT correlate for the patient's symptoms. 2. Healing right 11th rib fracture. 3. Nonobstructing right nephrolithiasis. Reviewed, dictated and finalized at location F. EY EGG GATHERER
[2021-12-23 16:51] VITALS: BP 166/94; PULSE 86; RESP 26; O2SAT 100
--- NOTE | 2021-12-23 17:14 | ED.GENADULT ---
HPI - General Adult General Chief complaint: Abdominal Pain <Kourtney Hewitt APRN - Last Filed: 12/24/21 18:08> Stated complaint: abd pain <Kourtney Hewitt APRN - Last Filed: 12/24/21 18:08> Time Seen by Provider: 12/23/21 16:59 <Kourtney Hewitt APRN - Last Filed: 12/24/21 18:08> Source: patient <Kourtney Hewitt APRN - Last Filed: 12/24/21 18:08> Mode of arrival: ambulatory <Kourtney Hewitt APRN - Last Filed: 12/24/21 18:08> Limitations: no limitations <Kourtney Hewitt APRN - Last Filed: 12/24/21 18:08> History of Present Illness HPI narrative: 36 year old female with history significant for gastric sleeve surgery, anxiety, depression, and cervical lymphnode cancer presents today with complaints of abdominal pain for one week and blood in her stool for the last few days. Patient states she was seen at [facility] for the same reason about 1 months ago. Patient also with complaints of nausea and decreased oral intake. <Kourtney Hewitt APRN - Last Filed: 12/24/21 18:08> Related Data Home medications: Home Medications Medication Instructions Recorded Confirmed omeprazole 40 mg PO DAILY 12/18/19 12/18/21 sertraline 50 mg PO DAILY 12/18/19 12/18/21 Bariatric Multivitamins 1 cap PO DAILY 01/10/21 12/18/21 Latuda 20 mg PO QPM 11/06/21 12/18/21 hydroxyzine pamoate 25 mg PO PRN PRN 11/06/21 12/18/21 <Kourtney Hewitt APRN - Last Filed: 12/24/21 18:08> Allergies/adverse reactions: Allergies Allergy/AdvReac Type Severity Reaction Status Date / Time peanut Allergy Severe RASH, Verified 12/18/21 11:40 THROAT SWELLING adhesive AdvReac Intermediate RASH/ Verified 12/18/21 11:40 BLISTERS lidocaine AdvReac Intermediate Rash Verified 12/18/21 11:40 <Kourtney Hewitt APRN - Last Filed: 12/24/21 18:08> Review of Systems Review of Systems: CONSTITUTIONAL: Denies fever, chills, or sweats. EYES: Denies visual changes, redness, or discharge. ENT: Denies rhinorrhea, congestion, sore throat, or otalgia. CARDIOVASCULAR: Denies chest pain, palpitations, or edema. RESPIRATORY: Denies cough. Positive for SOB. GASTROINTESTINAL: Positive for abdominal pain, nausea, vomiting, bloody in stool, and diarrhea. GENITOURINARY: Denies dysuria or hematuria. SKIN: Denies rash or itching. MUSCULOSKELETAL: Denies back pain, joint pain, or myalgia. NEUROLOGIC: Denies headache, numbness, dizziness, or weakness. PSYCHIATRIC: Denies anxiety or depression. 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 PONV (postoperative nausea and vomiting) Wears glasses <Kourtney Hewitt RECTIFICATION PRINTER - Last Filed: 12/24/21 18:08> Surgical History Surgical History: Surgical History History of left salpingo-oophorectomy History of sleeve gastrectomy <Kourtney Hewitt RECTIFICATION PRINTER - Last Filed: 12/24/21 18:08> Family History Family History: Family History Mother Family history of thyroid disease Family history of chronic obstructive pulmonary disease Sibling Hypertension Asthma Family history of arthritis Family history of malignant neoplasm of uterus Father Family history of lung cancer Other Diabetes mellitus Distal radius fracture, right Family history of allergic disorder Family history of cardiovascular disease <Kourtney Hewitt RECTIFICATION PRINTER - Last Filed: 12/24/21 18:08> Social History Social History: Social History Alcohol intake: current Substance use: never Substance use type: does not use Addit
[2021-12-23 17:45] LABS: Basophils Percent Auto 0.8 % (0.2-1.2); Eosinophils Percent Auto 1.1 % (0-4.4); Hemoglobin 9.6 g/dL (12.0-15.0); Immature Granulocyte Absolute 0.02 K/mm3 (0.00-0.031); Immature Granulocyte Percent A 0.5 % (0-0.5); Lymphocytes Absolute Auto 0.56 K/mm3 (0.9-3.2); Lymphocytes Percent Auto 14.7 % (18.3-44.2); Monocytes Absolute Auto 0.2 K/mm3 (0.1-0.6); Monocytes Percent Auto 4.5 % (2.6-8.5); Neutrophils Percent Auto 78.4 % (45.5-73.1); Platelet Count Result 224 k/mm3 (150-375); Red Blood Count 3.69 M/mm3 (4.2-5.4); Red Cell Distribution Width 16.6 % (11.5-14.5); White Blood Count 3.8 K/mm3 (4.5-10.0)
[2021-12-23] MEDS: ONDANSETRON INJ 4 MG/2 ML VIAL IV PUSH (17:49)
[2021-12-23] MEDS: LACTATED RINGERS 1,000 ML 999 ML IV CONT (17:49)
[2021-12-23] MEDS: DICYCLOMINE HCL INJ 20 MG/2 ML VIAL IM (17:49)
[2021-12-23 17:54] LABS: INR 1.1; Prothrombin Time 13.8 Seconds (11.1-14.7)
[2021-12-23 17:55] LABS: Partial Thromboplastin Time 25.8 SECONDS (22.3-36.8)
[2021-12-23 17:58] LABS: Alanine Aminotransferase 17 U/L (4-35); Albumin Level 4.8 g/dL (3.5-5.1); Alkaline Phosphatase 109 U/L (38-126); Anion Gap 11 mmol/L (8-16); Aspartate Amino Transferase 31 U/L (14-36); Bilirubin,Total 0.7 mg/dL (0.2-1.3); Blood Urea Nitrogen 10 mg/dL (7-17); Calcium 9.1 mg/dL (8.4-10.2); Carbon Dioxide 19 mmol/L (22-30); Chloride 105 mmol/L (98-107); Estimated CRCL calculation 176 ml/min; Estimated Glomerular Filt Rate > 60; Glucose 136 mg/dL (65-110); Potassium 3.4 mmol/L (3.4-5.0); Sodium 135 mmol/L (137-145)
[2021-12-23 18:00] LABS: Add Urine Microscopic? YES; Amorphous Sediment Urine Few; Appearance Urine Turbid (Clear); Bilirubin Urine Negative (Negative); Blood Urine Negative (Negative); Color Urine Yellow (Yellow); Glucose Urine UA Negative (Negative); Ketones Urine 1+ mg/dL (Negative); Leukocyte Esterase Ur Negative LEU/UL (Negative); Mucus Urine Rare /lpf; Nitrate Urine Negative (Negative); Protein Urine Negative (Negative); Specific Grav Ur 1.015 (1.001-1.035); Squamous Epithelial Cell Urine Many /hpf (Few); Urobilinogen Urine Negative mg/dL (<2.0)
[2021-12-23] MEDS: KETOROLAC 15 MG/ML VIAL (*BKC) IV PUSH (20:07)
[2021-12-23] MEDS: PHENAZOPYRIDINE HCL 100 MG TABLET 200 MG PO (20:42)
[2021-12-23] MEDS: CEPHALEXIN 500 MG CAPSULE PO (20:42)
[2021-12-23 21:41] VITALS: BP 169/98; PULSE 87; RESP 22; O2SAT 87
== END 2021-12-23 21:35 | disposition home or self-care (01) ==
PROVIDERS: Emergency Provider Nurse Practitioner Family; PCP Internal Medicine
DX: N39.0 Urinary tract infection, site not specified (principal); I10 Essential (primary) hypertension; K21.9 Gastro-esophageal reflux disease without esophagitis; F41.9 Anxiety disorder, unspecified; F32.A Depression, unspecified; Z85.79 Personal history of other malignant neoplasms of lymphoid, hematopoietic and related tissues; Z92.3 Personal history of irradiation; Z92.21 Personal history of antineoplastic chemotherapy; Z98.84 Bariatric surgery status; N20.0 Calculus of kidney
CPT/HCPCS: 36415; 74177; 80053; 81001; 85025; 85610; 85730; 96361; 96372; 96374; 96375; 99284; A9270; J0500; J1885; J2405; J7120; Q9967

== ENCOUNTER 2022-02-20 18:49 | Emergency (ER) | payer BC, SELFPAY ==
--- NOTE | ~2022-02-20 | CT_ITS ---
EXAMINATION: CT abdomen pelvis w con INDICATION: Abdominal pain TECHNIQUE: Computed tomographic images of the abdomen and pelvis were obtained after the administrati on of 100 cc of Omnipaque 350 intravenous contrast. The dose-length product (DLP) was 648.12 mGy-cm. Automated exposure control and iterative reconstruction technique were employed. COMPARISON: 12/23/2021 FINDINGS: The lung bases are clear. The heart size is normal. There are surgical changes in the stoma ch. The gallbladder is surgically absent. There is mild enlargement of the common bile duct and centr al intrahepatic ducts which is likely due to post cholecystectomy state. The liver, spleen, pancreas, and adrenal glands are normal. There is a 3 mm nonobstructing stone in the lower pole of the right k idney. The left kidney is unremarkable. There is a chronic compression fracture of L1. No pathologica lly enlarged abdominal or pelvic lymph nodes are identified. There is no free intraperitoneal gas or evidence of bowel obstruction. IMPRESSION: 1. No CT correlate for the patient's symptoms. 2. Nonobstructing right nephrolithiasis. Reviewed, dictated and finalized at location F.
--- NOTE | ~2022-02-20 | XR_ITS ---
EXAMINATION: XR chest 2V DATE: 02/20/2022 19:24 INDICATION: Dizziness and abdominal pain, nausea and vomiting TECHNIQUE: AP and lateral views of the chest are obtained. COMPARISON: 04/23/2021 FINDINGS: The lungs are free of acute opacities. There is no pleural effusion or pneumothorax. The ca rdiomediastinal silhouette is normal. The visualized bones and soft tissues are unremarkable. IMPRESSION: 1. No acute cardiopulmonary abnormality. Reviewed, dictated and finalized at location F.
[2022-02-20 18:51] VITALS: BP 200/108; PULSE 86; RESP 20; TEMP 36.9; O2SAT 98
--- NOTE | 2022-02-20 19:09 | ECG_ITS ---
Measurements Intervals [place] Rate: 65 P: 71 CT: 173 QRS: 19 QRSD: 92 T: 37 QT: 435 QTc: 455 Interpretive Statements SINUS RHYTHM COMPARED TO ECG 04/23/2021 16:05:34 NO SIGNIFICANT CHANGES Electronically Signed On 02-21-2022 13:41:30 CDT by Daija Clark M.D.
--- NOTE | 2022-02-20 19:37 | ED.ABDPAIN ---
HPI - Abdominal Pain General Chief Complaint: Abdominal Pain Stated Complaint: dizziness with abdominal pain Time Seen by Provider: 02/20/22 19:09 Source: patient Mode of arrival: ambulatory Limitations: no limitations History of Present Illness HPI narrative: This is a 36 year old female that presents to the ER for abdominal pain. Present today. Associated with nausea, vomiting and lightheadedness. Reports she was feeling very lightheaded and nauseous earlier and she passed out. She does not report hitting her head. Denies vision changes, chest pain, shortness of breath, numbness or weakness. Related Data Home Medications Medication Instructions Recorded Confirmed omeprazole 40 mg PO DAILY 12/18/19 01/22/22 sertraline 50 mg PO DAILY 12/18/19 01/22/22 Bariatric Multivitamins 1 cap PO DAILY 01/10/21 01/22/22 Latuda 20 mg PO QPM 11/06/21 01/22/22 hydroxyzine pamoate 25 mg PO PRN PRN 11/06/21 01/22/22 Allergies Allergy/AdvReac Type Severity Reaction Status Date / Time peanut Allergy Severe RASH, Verified 01/22/22 09:11 THROAT SWELLING adhesive AdvReac Intermediate RASH/ Verified 01/22/22 09:11 BLISTERS lidocaine AdvReac Intermediate Rash Verified 01/22/22 09:11 Review of Systems Review of Systems: CONSTITUTIONAL: Denies fever CARDIOVASCULAR: Denies chest pain, palpitations, or edema. RESPIRATORY: Denies dyspnea. GASTROINTESTINAL: Reports abdominal pain, nausea, vomiting. Denies diarrhea. 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 PONV (postoperative nausea and vomiting) Wears glasses Surgical History Surgical History History of left salpingo-oophorectomy History of sleeve gastrectomy Family History Family History Mother Family history of thyroid disease Family history of chronic obstructive pulmonary disease Sibling Hypertension Asthma Family history of arthritis Family history of malignant neoplasm of uterus Father Family history of lung cancer Other Diabetes mellitus Distal radius fracture, right Family history of allergic disorder Family history of cardiovascular disease Social History Social History (Updated 01/22/22 @ 09:12 by Fanny Guzman MA) Alcohol intake: current Substance use: never Substance use type: does not use Additional living arrangements comments: CHILDREN Spiritual care concerns: No Exam Narrative: GENERAL: Well-appearing, well-nourished, and in no acute distress. HEAD: Normocephalic, atraumatic. EYES: EOMI. NECK: Supple. No adenopathy or masses. CHEST: Clear to auscultation. No respiratory distress. No wheezes rales or rhonchi HEART: Regular rate and rhythm. No murmur heard. Normal peripheral pulses. ABDOMEN: Soft, nondistended, normal active bowel sounds. Tender to palpation throughout the mid-lower abdomen, without guarding. No CVA tenderness EXTREMITIES: Normal range of motion. No edema or obvious deformity. SKIN: Warm, dry, no rash. NEURO: No focal deficits. Alert and oriented x3. PSYCH: Normal mood and affect Course Vital Signs Vital signs: Vital Signs Temperature 98.4 F 02/20/22 18:51 Pulse Rate 86 02/20/22 18:51 Respiratory Rate 20 02/20/22 18:51 Blood Pressure 200/108 H 02/20/22 18:51 Pulse Oximetry 98 02/20/22 18:51 Temperature 98.4 F 02/20/22 18:51 Pulse Rate 84 02/20/22 23:04 Respiratory Rate 18 02/20/22 23:04 Blood Pressure 133/77 02/20/22 23:04 Pulse Oximetry 100 02/20/22 23:04 MDM - Abdominal Pain MDM Narrative Medical dec
[2022-02-20 19:59] VITALS: BP 190/108
[2022-02-20] MEDS: SODIUM CHLORIDE 0.9% IV 1,000 ML 999 ML IV CONT (20:22)
[2022-02-20] MEDS: ONDANSETRON INJ 4 MG/2 ML VIAL IV PUSH (20:23)
[2022-02-20] MEDS: MORPHINE SULFATE (*CRX) 4 MG/ML INJ IV PUSH (20:24)
[2022-02-20 20:39] LABS: Basophils Percent Auto 0.5 % (0.2-1.2); Eosinophils Percent Auto 0.3 % (0-4.4); Hematocrit 31.6 % (37.0-47.0); Hemoglobin 8.7 g/dL (12.0-15.0); Immature Granulocyte Absolute 0.01 K/mm3 (0.00-0.031); Immature Granulocyte Percent A 0.3 % (0-0.5); Immature Platelet Fraction Pct 10.1 % (0.9-11.2); Lymphocytes Absolute Auto 0.41 K/mm3 (0.9-3.2); Lymphocytes Percent Auto 11.2 % (18.3-44.2); Mean Corpuscular HGB Conc 27.5 g/dl (32-36); Mean Corpuscular Hemoglobin 20.9 pg (26-34); Mean Platelet Volume 12.7 fl (7.4-10.4); Monocytes Absolute Auto 0.1 K/mm3 (0.1-0.6); Monocytes Percent Auto 2.2 % (2.6-8.5); Neutrophils Absolute Auto 3.1 K/mm3 (1.3-6.7); Neutrophils Percent Auto 85.5 % (45.5-73.1); Platelet Count Result 230 k/mm3 (150-375); Red Blood Count 4.16 M/mm3 (4.2-5.4); Red Cell Distribution Width 16.7 % (11.5-14.5); White Blood Count 3.7 K/mm3 (4.5-10.0)
[2022-02-20 20:44] VITALS: BP 164/96; PULSE 73; RESP 18; O2SAT 98
[2022-02-20 20:48] LABS: Hypochromasia 3+ (NORMAL); Platelet Estimate Adequate (Adequate); Stomatocytes 1+ (NORMAL)
[2022-02-20 20:49] LABS: Alanine Aminotransferase 14 U/L (4-35); Albumin Level 4.7 g/dL (3.5-5.1); Alkaline Phosphatase 99 U/L (38-126); Anion Gap 13 mmol/L (8-16); Aspartate Amino Transferase 25 U/L (14-36); Bilirubin,Total 0.4 mg/dL (0.2-1.3); Blood Urea Nitrogen 5 mg/dL (7-17); Calcium 8.7 mg/dL (8.4-10.2); Carbon Dioxide 23 mmol/L (22-30); Chloride 101 mmol/L (98-107); Estimated CRCL calculation 169 ml/min; Estimated Glomerular Filt Rate > 60; Glucose 120 mg/dL (65-110); Lipase 45 U/L (23-300); Potassium 3.1 mmol/L (3.4-5.0); Sodium 137 mmol/L (137-145)
[2022-02-20 21:01] LABS: Troponin I < 0.012 ng/mL (0.000-0.034)
[2022-02-20 21:14] LABS: Add Urine Microscopic? YES; Appearance Urine Cloudy (Clear); Bacteria Urine Trace /hpf; Bilirubin Urine Negative (Negative); Blood Urine Negative (Negative); Color Urine Yellow (Yellow); Glucose Urine UA Negative (Negative); Ketones Urine 1+ mg/dL (Negative); Leukocyte Esterase Ur Negative LEU/UL (Negative); Mucus Urine Rare /lpf; Nitrate Urine Negative (Negative); Protein Urine Negative (Negative); RBC Urine 0-2 /hpf (0-2); Specific Grav Ur 1.011 (1.001-1.035); Squamous Epithelial Cell Urine Occasional /hpf (Few); Urobilinogen Urine Negative mg/dL (<2.0); WBC Urine 0-3 /hpf
[2022-02-20 23:04] VITALS: BP 133/77; PULSE 84; RESP 18; O2SAT 100
[2022-02-20] MEDS: PROCHLORPERAZINE EDISYLATE 10 MG/2 ML VIAL IV PUSH (23:12)
[2022-02-20] MEDS: KETOROLAC 15 MG/ML VIAL (*BKC) IV PUSH (23:12)
[2022-02-20] MEDS: POTASSIUM CHLORIDE 20 MEQ PACKET (FOR LIQUID) 40 MEQ PO (23:59)
[2022-02-21 00:31] VITALS: BP 119/66; PULSE 73; RESP 18; O2SAT 100
[2022-02-21 01:34] VITALS: BP 118/67; PULSE 78; RESP 18; O2SAT 100
== END 2022-02-21 01:34 | disposition home or self-care (01) ==
PROVIDERS: Emergency Provider Emergency Medicine; PCP Internal Medicine
DX: E87.6 Hypokalemia (principal); R10.9 Unspecified abdominal pain; R55 Syncope and collapse; F32.A Depression, unspecified; I10 Essential (primary) hypertension
CPT/HCPCS: 36415; 71046; 74177; 80053; 81001; 81025; 83690; 84484; 85025; 85055; 87804; 93005; 96365; 96375; 99284; A9270; J0131; J0780; J1885; J2270; J2405; J7030; Q9967

== ENCOUNTER 2022-05-24 11:10 | Emergency (ER) | payer BC, SELFPAY ==
[2022-05-24 11:20] VITALS: BP 119/62; PULSE 81; RESP 16; TEMP 36.7; O2SAT 99
[2022-05-24 11:30] VITALS: BP 119/62; PULSE 81; RESP 16; TEMP 36.7; O2SAT 99
--- NOTE | 2022-05-24 11:48 | ED.WOUNDLAC ---
HPI - Wound/Laceration General Chief Complaint: Wound/Laceration Stated Complaint: lac rt thumb Time Seen by Provider: 05/24/22 11:26 Source: patient Mode of arrival: ambulatory Limitations: no limitations History of Present Illness HPI narrative: Patient presents today complaining of laceration to her right thumb that was sustained approximately 5 hours prior to arrival on a glass that she was cleaning in her kitchen. She did scrub the wound out immediately following the injury. Denies numbness or tingling in the finger. She currently rates her pain 11/06. She is not up-to-date on her tetanus vaccine. Patient is allergic to lidocaine and adhesive. Reports that adhesive causes a rash when it is associated with latex, but otherwise she can tolerate it. Related Data Home Medications Medication Instructions Recorded Confirmed omeprazole 40 mg capsule,delayed 40 mg PO DAILY 12/18/19 05/24/22 release sertraline 50 mg tablet 50 mg PO DAILY 12/18/19 05/24/22 [id number] 45 mg-folic 1 cap PO DAILY 01/10/21 05/24/22 acid 800 mcg-vit K 120 mcg capsule (Bariatric Multivitamins) lurasidone 20 mg tablet (Latuda) 20 mg PO QPM 11/06/21 05/24/22 aripiprazole 2 mg tablet 2 mg PO DIRECTED 05/24/22 05/24/22 hydroxyzine HCl 10 mg tablet 10 mg PO DIRECTED 05/24/22 05/24/22 Allergies Allergy/AdvReac Type Severity Reaction Status Date / Time peanut Allergy Severe RASH, Verified 01/22/22 09:11 THROAT SWELLING adhesive AdvReac Intermediate RASH/ Verified 01/22/22 09:11 BLISTERS lidocaine AdvReac Intermediate Rash Verified 01/22/22 09:11 Review of Systems Review of Systems: CONSTITUTIONAL: Denies body aches, fever, chills, or sweats. EYES: Denies visual changes, redness, or discharge. ENT: Denies rhinorrhea, congestion, sore throat, or otalgia. CARDIOVASCULAR: Denies chest pain, palpitations, or edema. RESPIRATORY: Denies cough or dyspnea. GASTROINTESTINAL: Denies abdominal pain, nausea, vomiting, or diarrhea. GENITOURINARY: Denies dysuria or hematuria. SKIN: Denies rash, itching. + Laceration of right thumb MUSCULOSKELETAL: Denies back pain, joint pain, or myalgia. NEUROLOGIC: Denies headache, numbness, tingling, or weakness. PSYCH: Denies depression or anxiety. 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 PONV (postoperative nausea and vomiting) Wears glasses Surgical History Surgical History History of left salpingo-oophorectomy History of sleeve gastrectomy Family History Family History Mother Family history of thyroid disease Family history of chronic obstructive pulmonary disease Sibling Hypertension Asthma Family history of arthritis Family history of malignant neoplasm of uterus Father Family history of lung cancer Other Diabetes mellitus Distal radius fracture, right Family history of allergic disorder Family history of cardiovascular disease Social History Social History Alcohol intake: current Substance use: never Substance use type: does not use Additional living arrangements comments: CHILDREN Spiritual care concerns: No Comments At time of signature, I have reviewed and agree with nursing past medical, surgical, social and family history unless otherwise noted. Please see nursing chart for further information. There is no relevant family history pertinent to the presenting complaint Exam Narrative: GENERAL: Well-appearing, well-nourished, and in no acute distress. HEAD: Normocephalic, atraumatic. EYES: EOMI. No redness or dr
[2022-05-24] MEDS: TETANUS,DIPHTHERIA,AC PERTUSSIS ADULT (0.5 ML) BOOSTRIX IM (11:54)
== END 2022-05-24 12:05 | disposition home or self-care (01) ==
PROVIDERS: Emergency Provider Nurse Practitioner
DX: S61.011A Laceration without foreign body of right thumb without damage to nail, initial encounter (principal); W25.XXXA Contact with sharp glass, initial encounter; Z23 Encounter for immunization; K21.9 Gastro-esophageal reflux disease without esophagitis; I10 Essential (primary) hypertension; Z98.84 Bariatric surgery status
CPT/HCPCS: 12001; 90471; 90715; 99213; G0463

== ENCOUNTER 2022-06-15 18:12 | Emergency (ER) | payer BC, SELFPAY ==
[2022-06-15 18:19] VITALS: BP 148/87; PULSE 74; RESP 16; TEMP 36.6; O2SAT 100
--- NOTE | 2022-06-15 18:24 | ECG_ITS ---
Measurements Intervals [place] Rate: 72 P: 71 ID: [id number] QRS: 28 QRSD: 91 T: 54 QT: 389 QTc: 428 Interpretive Statements SINUS RHYTHM COMPARED TO ECG 02/20/2022 20:53:20 NO SIGNIFICANT CHANGES Electronically Signed On 06-16-2022 13:34:28 CDT by Daija Clark M.D.
[2022-06-15 18:57] LABS: Basophils Percent Auto 0.8 % (0.2-1.2); Eosinophils Absolute Auto 0.2 K/mm3 (0-0.3); Eosinophils Percent Auto 4.5 % (0-4.4); Hemoglobin 9.6 g/dL (12.0-15.0); Immature Granulocyte Absolute 0.01 K/mm3 (0.00-0.031); Immature Granulocyte Percent A 0.2 % (0-0.5); Immature Platelet Fraction Pct 10.6 % (0.9-11.2); Lymphocytes Absolute Auto 1.19 K/mm3 (0.9-3.2); Lymphocytes Percent Auto 23.3 % (18.3-44.2); Mean Corpuscular HGB Conc 27.4 g/dl (32-36); Mean Corpuscular Hemoglobin 20.1 pg (26-34); Mean Corpuscular Volume 73.2 fl (80-100); Monocytes Absolute Auto 0.4 K/mm3 (0.1-0.6); Monocytes Percent Auto 7.3 % (2.6-8.5); Neutrophils Absolute Auto 3.3 K/mm3 (1.3-6.7); Neutrophils Percent Auto 63.9 % (45.5-73.1); Platelet Count Result 229 k/mm3 (150-375); Red Blood Count 4.78 M/mm3 (4.2-5.4); Red Cell Distribution Width 17.7 % (11.5-14.5); White Blood Count 5.1 K/mm3 (4.5-10.0)
[2022-06-15 19:06] LABS: Alanine Aminotransferase 15 U/L (6-35); Albumin Level 5.1 g/dL (3.5-5.1); Alkaline Phosphatase 86 U/L (38-126); Anion Gap 14 mmol/L (8-16); Aspartate Amino Transferase 23 U/L (14-36); Bilirubin,Total 0.4 mg/dL (0.2-1.3); Blood Urea Nitrogen 13 mg/dL (7-17); Calcium 9.1 mg/dL (8.4-10.2); Carbon Dioxide 21 mmol/L (22-30); Chloride 105 mmol/L (98-107); Estimated CRCL calculation 141 ml/min; Estimated Glomerular Filt Rate > 60; Glucose 103 mg/dL (65-110); Potassium 3.7 mmol/L (3.4-5.0); Sodium 140 mmol/L (137-145)
[2022-06-15 19:13] LABS: Hypochromasia 2+ (NORMAL); Platelet Estimate Adequate (Adequate)
[2022-06-15 19:14] LABS: Anisocytosis 1+ (NORMAL); Microcytosis 1+ (NORMAL)
--- NOTE | 2022-06-15 20:49 | PC.NURSE ---
Patient called in triage to be placed in patient room. No answer.
[2022-06-15 21:46] LABS: Troponin I < 0.012 ng/mL (0.000-0.034)
== END 2022-06-15 20:49 | disposition left against medical advice (07) ==
PROVIDERS: Emergency Medicine; Emergency Provider Emergency Medicine
DX: R55 Syncope and collapse (principal); Z53.21 Procedure and treatment not carried out due to patient leaving prior to being seen by health care provider
CPT/HCPCS: 36415; 80053; 84484; 85025; 85055; 93005; 99199

== ENCOUNTER 2022-11-11 12:11 | Emergency (ER) | payer BC, SELFPAY ==
[2022-11-11 13:12] VITALS: BP 138/91; PULSE 76; RESP 16; TEMP 36.6; O2SAT 99
--- NOTE | 2022-11-11 14:04 | ED.URI ---
HPI - URI/Sore Throat General Chief Complaint: Upper Respiratory Infection Stated Complaint: cough Source: patient Mode of arrival: ambulatory Limitations: no limitations History of Present Illness HPI Narrative: 37-year-old female presents to [facility] complains of fatigue, body aches, cough for the last 6 days. Patient has been taking [id number] Tylenol and NyQuil with no relief. Patient denies nasal congestion or sinus pressure or shortness of breath wheezing or diarrhea. Patient is a nonsmoker. Patient denies sick contacts. MD elicited complaint: cough Onset (ago): day(s) (6) Consistency: constant Severity: mild Able to tolerate fluids by mouth: Yes Exacerbating factors: nothing Treatments prior to arrival: acetaminophen and cold medicine Related Data Home Medications Medication Instructions Recorded Confirmed omeprazole 40 mg capsule,delayed 40 mg PO DAILY 12/18/19 05/24/22 release sertraline 50 mg tablet 50 mg PO DAILY 12/18/19 05/24/22 aripiprazole 2 mg tablet 2 mg PO DIRECTED 05/24/22 05/24/22 montelukast 10 mg tablet mg 11/11/22 Allergies Allergy/AdvReac Type Severity Reaction Status Date / Time peanut Allergy Severe RASH, Verified 11/11/22 13:15 THROAT SWELLING Penicillins Allergy Hives Verified 11/11/22 13:32 adhesive AdvReac Intermediate RASH/ Verified 11/11/22 13:15 BLISTERS lidocaine AdvReac Intermediate Rash Verified 11/11/22 13:15 Review of Systems Constitutional: Constitutional: Denies chills, Denies fatigue, Denies fever(s) and Denies weakness ENT: Denies vertigo, Denies dizziness, Denies epistaxis, Denies nasal congestion and Denies sore throat Respiratory: Respiratory: Reports cough, Denies dyspnea and Denies wheezing Gastrointestinal: Gastrointestinal: Denies diarrhea, Denies nausea and Denies vomiting Integumentary/Breasts: Skin/Breast: Denies rash Neurologic: Denies dizziness, Denies syncope and Denies headache(s) [facility] Past Medical History Medical History Anxiety Depression Distal radius fracture, right History of gastroesophageal reflux (GERD) Hypertension 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 PONV (postoperative nausea and vomiting) Wears glasses Surgical History Surgical History History of left salpingo-oophorectomy History of sleeve gastrectomy Family History Family History Mother Family history of thyroid disease Family history of chronic obstructive pulmonary disease Sibling Hypertension Asthma Family history of arthritis Family history of malignant neoplasm of uterus Father Family history of lung cancer Other Diabetes mellitus Distal radius fracture, right Family history of allergic disorder Family history of cardiovascular disease Social History Social History Alcohol intake: current Substance use: never Substance use type: does not use Additional living arrangements comments: CHILDREN Spiritual care concerns: No Comments At time of signature, I agree with nursing past medical, surgical, social and family history. There is no relevant family history pertinent to the presenting complaint. Exam Const: General: healthy appearing Nutritional Appearance: well nourished Orientation/consciousness: patient oriented x3 Limitations: no limitations HENMT: Head: normal to inspection Ears: Abnormal EAC present foreign body on the left Face and sinus: normal facial exam and sinuses nontender Mouth: Yes Normal oral and palatal mucosa present and Yes lip normal Teeth and gingiva: dentition normal Throat: posterior oropharynx normal and uvula midline Eyes: Conjunctivae: conjunctivae normal Resp: Effort & Inspection: normal respiratory effort and not
== END 2022-11-11 14:12 | disposition home or self-care (01) ==
PROVIDERS: Emergency Provider Nurse Practitioner Family
DX: J06.9 Acute upper respiratory infection, unspecified (principal); T16.2XXA Foreign body in left ear, initial encounter; X58.XXXA Exposure to other specified factors, initial encounter; F41.9 Anxiety disorder, unspecified; F32.A Depression, unspecified; K21.9 Gastro-esophageal reflux disease without esophagitis; Z85.858 Personal history of malignant neoplasm of other endocrine glands
CPT/HCPCS: 69200; 99213; G0463

== ENCOUNTER 2023-12-27 08:13 | Emergency (ER) | payer BC, SELFPAY ==
--- NOTE | 2023-12-27 08:23 | ED.URI ---
HPI - URI/Sore Throat General Chief Complaint: Upper Respiratory Infection Stated Complaint: Sinus/Eyes Irritation Time Seen by Provider: 12/27/23 08:23 Source: patient Mode of arrival: ambulatory Limitations: no limitations History of Present Illness HPI Narrative: Patient is a 38-year-old female who presents with 1 week of sinus congestion, fatigue and body aches. Sister had influenza B. patient also woke up with bilateral eyes crusted shut. Reports son was diagnosed with pinkeye a few days ago. Denies any fever, chills, nausea, vomiting, diarrhea, sore throat, cough. Related Data Home Medications Medication Instructions Recorded Confirmed omeprazole 40 mg capsule,delayed 40 mg PO DAILY 12/18/19 12/27/23 release sertraline 50 mg tablet 50 mg PO DAILY 12/18/19 12/27/23 lurasidone 40 mg tablet 40 mg PO DAILY 12/27/23 12/27/23 sertraline 25 mg tablet 25 mg PO DAILY 12/27/23 12/27/23 Allergies Allergy/AdvReac Type Severity Reaction Status Date / Time peanut Allergy Severe RASH, Verified 12/27/23 08:18 THROAT SWELLING adhesive AdvReac Intermediate RASH/ Verified 12/27/23 08:18 BLISTERS lidocaine AdvReac Intermediate Rash Verified 12/27/23 08:18 Review of Systems Review of Systems: All systems reviewed & are unremarkable except as noted in HPI and below Constitutional: Constitutional: Reports body ache(s), Denies chills, Reports fatigue, Denies fever(s), Denies headache(s), Denies malaise and Denies weakness Eyes: Eyes: Denies blurry vision, Reports eye discharge, Reports itchy eyes and Denies loss of vision ENT: Denies otalgia, Denies headache(s), Reports nasal congestion, Denies sinus pain and Denies sore throat Cardiovascular: Cardiovascular: Denies chest pain, Denies irregular heart rhythm and Denies dyspnea Respiratory: Respiratory: Reports cough and Denies dyspnea Gastrointestinal: Gastrointestinal: Denies abdominal pain, Denies diarrhea, Denies nausea and Denies vomiting Musculoskeletal: Musculoskeletal: Denies back pain, Denies myalgias and Denies arthralgias Integumentary/Breasts: Skin/Breast: Denies pruritus and Denies rash Neurologic: Denies headache(s), Denies loss of vision and Denies weakness Psychiatric: Psychiatric: Reports no additional psychiatric complaints Endocrine: Endocrine: Denies fatigue Allergic/Immunologic: Allergic/Immunologic: Denies itchy eyes PMFSH Past Medical History Medical History Anxiety Depression Distal radius fracture, right History of gastroesophageal reflux (GERD) Hypertension 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 PONV (postoperative nausea and vomiting) Wears glasses Surgical History Surgical History History of left salpingo-oophorectomy History of sleeve gastrectomy Family History Family History Mother Family history of thyroid disease Family history of chronic obstructive pulmonary disease Sibling Hypertension Asthma Family history of arthritis Family history of malignant neoplasm of uterus Father Family history of lung cancer Other Diabetes mellitus Distal radius fracture, right Family history of allergic disorder Family history of cardiovascular disease Social History Social History Alcohol intake: current Substance use: never Substance use type: does not use Living arrangements: with family Additional living arrangements comments: CHILDREN Spiritual care concerns: No Comments At time of signature, agree with nursing past medical, surgical, social and family history. There is no relevant family history pertinent to the presenting complaint. Exam Const: General: cooperative, healthy appearing, comfortable, no acute distress and well nourished
[2023-12-27 08:31] VITALS: BP 136/84; PULSE 77; RESP 16; TEMP 36.8; O2SAT 100
== END 2023-12-27 09:00 | disposition home or self-care (01) ==
PROVIDERS: Emergency Provider Nurse Practitioner Family
DX: H10.9 Unspecified conjunctivitis (principal); Z20.822 Contact with and (suspected) exposure to COVID-19; K21.9 Gastro-esophageal reflux disease without esophagitis; I10 Essential (primary) hypertension; F41.9 Anxiety disorder, unspecified; F32.A Depression, unspecified; Z98.84 Bariatric surgery status; Z85.79 Personal history of other malignant neoplasms of lymphoid, hematopoietic and related tissues
CPT/HCPCS: 87426; 87804; 99213; G0463

== ENCOUNTER 2024-02-29 11:26 | Emergency (ER) | payer BC, SELFPAY ==
--- NOTE | ~2024-02-29 | CT_ITS ---
EXAMINATION: CT brain wo con DATE: 02/29/2024 13:46 INDICATION: Frontal headache TECHNIQUE: Computed tomography (CT) of the head was performed without intravenous contrast. Sagittal and coronal reconstructions were performed. The mA was adjusted according to patient size. Iterative reconstruction technique was employed. The dose-length product was 529.67 mGy-cm. COMPARISON: head CT dated 04/23/2021 FINDINGS: No acute intracranial hemorrhage, acute infarction or abnormal extra axial fluid collection. Ventricl es are normal and symmetric. No mass/mass effect. Chronic small right mastoid effusion. The orbits, p aranasal sinuses and left mastoid air cells are normal. IMPRESSION: 1. Normal brain. No acute intracranial process. Reviewed, dictated and finalized at location A.
[2024-02-29 11:29] VITALS: BP 101/84; PULSE 69; RESP 18; TEMP 36.4; O2SAT 100
--- NOTE | 2024-02-29 12:38 | ED.HA ---
HPI - Headache General Chief Complaint: Headache Stated Complaint: headache Time Seen by Provider: 02/29/24 12:37 Source: patient Mode of arrival: ambulatory Limitations: no limitations History of Present Illness HPI Narrative: 38 years old white female drove herself to the emergency room complaining of frontal sharp stabbing pain for the last 4 days. Denies relieving factors, not improving on Tylenol or ibuprofen. Patient reports lot of stress lately for the last 4 weeks. History of depression and anxiety. She denies any fever, chills, nausea, vomiting. Patient reports light and noise make the headache worse History of cancer of the neck lymph nodes 2014 status post chemotherapy and radiation, been cured and is not taking any medication at this time. Related Data Home Medications Medication Instructions Recorded Confirmed omeprazole 40 mg capsule,delayed 40 mg PO DAILY 12/18/19 12/27/23 release sertraline 50 mg tablet 50 mg PO DAILY 12/18/19 12/27/23 lurasidone 40 mg tablet 40 mg PO DAILY 12/27/23 12/27/23 sertraline 25 mg tablet 25 mg PO DAILY 12/27/23 12/27/23 Allergies Allergy/AdvReac Type Severity Reaction Status Date / Time peanut Allergy Severe RASH, Verified 02/29/24 12:43 THROAT SWELLING adhesive AdvReac Intermediate RASH/ Verified 02/29/24 12:43 BLISTERS lidocaine AdvReac Intermediate Rash Verified 02/29/24 12:43 Review of Systems Review of Systems: All systems reviewed & are unremarkable except as noted in HPI and below PMFSH Past Medical History Medical History Anxiety Depression Distal radius fracture, right History of gastroesophageal reflux (GERD) Hypertension 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 PONV (postoperative nausea and vomiting) Wears glasses Surgical History Surgical History History of left salpingo-oophorectomy History of sleeve gastrectomy Family History Family History Mother Family history of thyroid disease Family history of chronic obstructive pulmonary disease Sibling Hypertension Asthma Family history of arthritis Family history of malignant neoplasm of uterus Father Family history of lung cancer Other Diabetes mellitus Distal radius fracture, right Family history of allergic disorder Family history of cardiovascular disease Social History Social History Alcohol intake: current Substance use: never Substance use type: does not use Living arrangements: with family Additional living arrangements comments: CHILDREN Spiritual care concerns: No Exam Narrative: General appearance: Well-developed, well-nourished Skin: Normal color Head: Normocephalic, nontraumatic Eyes: Clear conjunctiva ENT: Oropharynx normal, ears normal, nose normal Neck: Supple, nontender , left side of the neck rash secondary to radiation Chest and respiratory: Airway patent, no respiratory distress, no accessory muscle use Heart: Regular rate/rhythm Abdomen: Soft, nontender, no organomegaly, quiet bowel sounds Vascular: Normal peripheral pulses, normal capillary refill. Musculoskeletal: Normal range of motion, nontender back Neurologic: Alert and oriented ?3, [employer] is normal as tested, no gross motor deficit Course Vital Signs Vital signs: Vital Signs Temperature 36.4 C 02/29/24 11:29 Pulse Rate 69 02/29/24 11:29 Respiratory Rate 18 02/29/24 11:29 Blood Pressure 101/84 02/29/24 11:29 Pulse
[2024-02-29 12:43] VITALS: BP 116/74; PULSE 79; RESP 16
[2024-02-29] MEDS: KETOROLAC 30 MG/ML VIAL (*BKC) IV PUSH (13:26)
[2024-02-29] MEDS: SODIUM CHLORIDE 0.9% IV 1,000 ML 999 ML IV CONT (13:27)
[2024-02-29] MEDS: LORazepam INJ (*CRX) 2 MG/ML VIAL 1 MG IV PUSH (13:27)
[2024-02-29 13:30] LABS: Basophils Percent Auto 0.3 % (0.2-1.2); Eosinophils Absolute Auto 0.2 K/mm3 (0-0.3); Eosinophils Percent Auto 1.8 % (0-4.4); Hematocrit 37.1 % (37.0-47.0); Hemoglobin 11.6 g/dL (12.0-15.0); Immature Granulocyte Absolute 0.02 K/mm3 (0.00-0.031); Immature Granulocyte Percent A 0.2 % (0-0.5); Lymphocytes Absolute Auto 1.15 K/mm3 (0.9-3.2); Lymphocytes Percent Auto 12.6 % (18.3-44.2); Mean Corpuscular HGB Conc 31.3 g/dl (32-36); Mean Corpuscular Hemoglobin 29.7 pg (26-34); Mean Corpuscular Volume 94.9 fl (80-100); Mean Platelet Volume 11.7 fl (7.4-10.4); Monocytes Absolute Auto 0.7 K/mm3 (0.1-0.6); Monocytes Percent Auto 7.7 % (2.6-8.5); Neutrophils Percent Auto 77.4 % (45.5-73.1); Platelet Count Result 124 k/mm3 (150-375); Red Blood Count 3.91 M/mm3 (4.2-5.4); Red Cell Distribution Width 14.1 % (11.5-14.5); White Blood Count 9.1 K/mm3 (4.5-10.0)
[2024-02-29 13:43] LABS: Alanine Aminotransferase 16 U/L (6-35); Albumin Level 4.1 g/dL (3.5-5.1); Alkaline Phosphatase 93 U/L (38-126); Anion Gap 10 mmol/L (4-12); Aspartate Amino Transferase 20 U/L (14-36); Bilirubin,Total 0.6 mg/dL (0.2-1.3); Blood Urea Nitrogen 17 mg/dL (7-17); Calcium 8.7 mg/dL (8.4-10.2); Carbon Dioxide 21 mmol/L (22-30); Chloride 106 mmol/L (98-107); Estimated CRCL calculation 140 ml/min; Estimated Glomerular Filt Rate > 60; Glucose 89 mg/dL (65-110); Potassium 3.4 mmol/L (3.4-5.0); Sodium 137 mmol/L (137-145)
[2024-02-29 14:38] LABS: Appearance Urine Turbid (Clear); Bacteria Urine 4+ /hpf; Bilirubin Urine 1+ (Negative); Blood Urine 2+ (Negative); Color Urine Dark Yellow (Yellow); Glucose Urine UA Negative (Negative); Ketones Urine Trace mg/dL (Negative); Leukocyte Esterase Ur 2+ LEU/UL (Negative); Need Manual Microscopic Reviewed; Nitrate Urine Positive (Negative); Protein Urine 1+ mg/dL (Negative); Specific Grav Ur 1.031 (1.001-1.035); Squamous Epithelial Cell Urine Moderate /hpf (Few); WBC Urine >100 /hpf (0-3); pH Urine 5.5 (5.0-9.0)
[2024-02-29 14:39] LABS: Add Urine Microscopic? YES
[2024-02-29 15:25] VITALS: BP 117/81; PULSE 69; RESP 15; O2SAT 98
== END 2024-02-29 15:25 | disposition home or self-care (01) ==
PROVIDERS: Emergency Provider Emergency Medicine
DX: N39.0 Urinary tract infection, site not specified (principal); R51.9 Headache, unspecified; F41.9 Anxiety disorder, unspecified; F32.A Depression, unspecified; K21.9 Gastro-esophageal reflux disease without esophagitis; I10 Essential (primary) hypertension; Z85.79 Personal history of other malignant neoplasms of lymphoid, hematopoietic and related tissues; Z92.3 Personal history of irradiation; Z92.21 Personal history of antineoplastic chemotherapy; Z98.84 Bariatric surgery status; Z90.721 Acquired absence of ovaries, unilateral; Z90.79 Acquired absence of other genital organ(s)
CPT/HCPCS: 36415; 70450; 80053; 81001; 85025; 87077; 87086; 87088; 87186; 96374; 96375; 99284; J0696; J1885; J2060; J7030

== ENCOUNTER 2024-03-10 16:39 | Emergency (ER) | payer BC, SELFPAY ==
[2024-03-10 16:41] VITALS: BP 155/92; PULSE 84; RESP 16; TEMP 36.4; O2SAT 100
== END 2024-03-10 17:00 | disposition left against medical advice (07) ==
LOC: ANHED 18:04
PROVIDERS: PCP Emergency Medicine
DX: R55 Syncope and collapse (principal)
CPT/HCPCS: 99199

== ENCOUNTER 2024-07-12 09:24 | Emergency (ER) | payer BC, SELFPAY ==
--- NOTE | 2024-07-12 09:32 | ED.URI ---
HPI - URI/Sore Throat General Chief Complaint: Upper Respiratory Infection Stated Complaint: Sinus Time Seen by Provider: 07/12/24 09:50 Source: patient, RN notes reviewed and old records reviewed Mode of arrival: ambulatory Limitations: no limitations History of Present Illness HPI Narrative: Patient presents with complaints of 5 days of URI symptoms. She reports symptoms began as runny nose, cough, sore throat. Now has some nausea, vomiting, diarrhea. She has not been taking her temperature at home, she is unsure fever status. She does report upper abdominal pain that she attributes to coughing and vomiting. Otherwise denies abdominal pain. She has been taking [id number] medications containing decongestants for her symptoms, they are not helping much. But her blood pressure is elevated, likely as a result of decongestants. She has a hoarse voice, so she is more tired than normal. Related Data Home Medications Medication Instructions Recorded Confirmed omeprazole 40 mg capsule,delayed 40 mg PO DAILY 12/18/19 07/12/24 release sertraline 50 mg tablet 50 mg PO DAILY 12/18/19 07/12/24 lurasidone 40 mg tablet 40 mg PO DAILY 12/27/23 07/12/24 sertraline 25 mg tablet 25 mg PO DAILY 12/27/23 07/12/24 Allergies Allergy/AdvReac Type Severity Reaction Status Date / Time peanut Allergy Severe RASH, Verified 07/12/24 09:24 THROAT SWELLING adhesive AdvReac Intermediate RASH/ Verified 07/12/24 09:24 BLISTERS lidocaine AdvReac Intermediate Rash Verified 07/12/24 09:24 Review of Systems Review of Systems: All systems reviewed & are unremarkable except as noted in HPI and below Constitutional: Constitutional: Reports as per HPI, Reports no additional constitutional complaints and Reports lethargy ENT: Reports system reviewed and no additional complaints, except as documented, Reports hoarseness, Reports nasal congestion, Reports nasal discharge and Reports sore throat Cardiovascular: Cardiovascular: Reports no additional cardiovascular complaints Respiratory: Respiratory: Reports as per HPI, Reports no additional respiratory complaints and Reports cough Gastrointestinal: Gastrointestinal: Reports as per HPI, Reports no additional gastrointestinal complaints, Reports diarrhea and Reports vomiting PMFSH Past Medical History Medical History Anxiety Depression Distal radius fracture, right History of gastroesophageal reflux (GERD) Hypertension 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 PONV (postoperative nausea and vomiting) Wears glasses Surgical History Surgical History History of left salpingo-oophorectomy History of sleeve gastrectomy Family History Family History Mother Family history of thyroid disease Family history of chronic obstructive pulmonary disease Sibling Hypertension Asthma Family history of arthritis Family history of malignant neoplasm of uterus Father Family history of lung cancer Other Diabetes mellitus Distal radius fracture, right Family history of allergic disorder Family history of cardiovascular disease Social History Social History Alcohol intake: current Substance use: never Substance use type: does not use Living arrangements: with family Additional living arrangements comments: CHILDREN Spiritual care concerns: No Comments At the time of my signature, I reviewed and agree with the nursing past medical, surgical, social, and family history. There is no relevant family history pertinent to the patient complaint. Exam Const: General: cooperative, no acute distress, alert and awake Orientation/consciousness: oriented to person, oriented to place and oriented to time HENMT: Head: [place]
[2024-07-12 09:33] VITALS: BP 182/107; PULSE 99; RESP 19; TEMP 36.9; O2SAT 100
[2024-07-12 09:58] LABS: EDCOVIDSCREEN Negative (Negative); EDINFLUASCREEN Negative (Negative); EDINFLUBSCREEN Negative (Negative); EDSTREPNEGPOS1 Negative (Negative)
[2024-07-12 10:10] VITALS: BP 176/117
== END 2024-07-12 10:10 | disposition home or self-care (01) ==
PROVIDERS: Emergency Provider Nurse Practitioner Family; PCP Emergency Medicine
DX: B34.9 Viral infection, unspecified (principal); I10 Essential (primary) hypertension; Z20.822 Contact with and (suspected) exposure to COVID-19; K21.9 Gastro-esophageal reflux disease without esophagitis; F41.9 Anxiety disorder, unspecified; F32.A Depression, unspecified; Z98.84 Bariatric surgery status; Z85.858 Personal history of malignant neoplasm of other endocrine glands; Z92.21 Personal history of antineoplastic chemotherapy; Z92.3 Personal history of irradiation
CPT/HCPCS: 87081; 87635; 87804; 87880; 99213; G0463

== ENCOUNTER 2024-08-18 08:19 | Emergency (ER) | payer OTHER, SELFPAY ==
[2024-08-18] VITALS (26 sets, daily range): BP systolic 134–156; BP diastolic 67–98; PULSE 74–81; RESP 18; TEMP 36.8; O2SAT 97–100
--- NOTE | 2024-08-18 08:31 | ED.NAVMDI ---
HPI - Nausea/Vomiting/Diarrhea General Chief complaint: Nausea/Vomiting/Diarrhea Stated complaint: n/v/d Time Seen by Provider: 08/18/24 08:22 History of Present Illness HPI Narrative: Patient with history of hiatal hernia start having some nausea last night, and diarrhea, has not been able to stop throwing up and then started having epigastric pain, history of hiatal hernia and has had symptoms like this in the past Related Data Home Medications Medication Instructions Recorded Confirmed omeprazole 40 mg capsule,delayed 40 mg PO DAILY 12/18/19 07/12/24 release sertraline 50 mg tablet 50 mg PO DAILY 12/18/19 07/12/24 lurasidone 40 mg tablet 40 mg PO DAILY 12/27/23 07/12/24 sertraline 25 mg tablet 25 mg PO DAILY 12/27/23 07/12/24 Allergies Allergy/AdvReac Type Severity Reaction Status Date / Time peanut Allergy Severe RASH, Verified 08/18/24 08:25 THROAT SWELLING adhesive AdvReac Intermediate RASH/ Verified 08/18/24 08:25 BLISTERS lidocaine AdvReac Intermediate Rash Verified 08/18/24 08:25 Review of Systems Review of Systems: All systems reviewed & are unremarkable except as noted in HPI and below PMFSH Past Medical History Medical History Anxiety Depression Distal radius fracture, right History of gastroesophageal reflux (GERD) Hypertension 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 PONV (postoperative nausea and vomiting) Wears glasses Surgical History Surgical History History of left salpingo-oophorectomy History of sleeve gastrectomy Family History Family History Mother Family history of thyroid disease Family history of chronic obstructive pulmonary disease Sibling Hypertension Asthma Family history of arthritis Family history of malignant neoplasm of uterus Father Family history of lung cancer Other Diabetes mellitus Distal radius fracture, right Family history of allergic disorder Family history of cardiovascular disease Social History Social History Alcohol intake: current Substance use: never Substance use type: does not use Living arrangements: with family Additional living arrangements comments: CHILDREN Spiritual care concerns: No Exam Narrative: EXAMINATION OF ORGAN SYSTEMS/BODY AREAS: Constitutional: Vital signs per nursing GENERAL:[No acute distress, non-toxic appearing.] HEAD: Normal with no signs of head trauma. EYES: EOMI, conjunctiva normal ENT: Hearing grossly intact LUNGS: Nonlabored breathing. HEART: [Regular rate and rhythm] ABD: [Soft], minimally tender to palpation epigastric abdomen EXT: Normal range of motion SKIN: [No rashes or lesions.] NEURO: [Alert and oriented x 3. No gross focal sensory or strength deficits.] PSYCH: Normal affect Course Vital Signs Vital signs: Vital Signs Temperature 98.3 F 08/18/24 08:22 Pulse Rate 74 08/18/24 08:22 Respiratory Rate 18 08/18/24 08:22 Blood Pressure 143/83 H 08/18/24 08:22 Pulse Oximetry 99 08/18/24 08:22 Oxygen Delivery Room Air 08/18/24 08:22 Temperature 98.3 F 08/18/24 08:22 Pulse Rate 75 08/18/24 14:32 Respiratory Rate 18 08/18/24 14:32 Blood Pressure 156/98 H 08/18/24 14:32 Pulse Oximetry 98 08/18/24 14:32 Oxygen Delivery Room Air 08/18/24 08:22 MDM - Nausea/Vomiting/Diarrhea MDM Narrative Medical decision making narrative: Patient with history of hiatal hernia presents here with flare, initially started with nausea, vomiting, and diarrhea, now with epigastric pain. Nausea improved with meds but still some pain; improved with IV morphine. Labs show K 2.4; EKG obtained showing prolonged QT. She is repleted K and Mg, IVF given, rpt K acceptable. On re-eval
[2024-08-18] MEDS: ONDANSETRON HCL ODT 4 MG TABLET PO (08:49)
[2024-08-18] MEDS: LOPERAMIDE HCL 2 MG CAPSULE 4 MG PO (09:12)
[2024-08-18] MEDS: PANTOPRAZOLE 40 MG TABLET PO (09:12)
[2024-08-18] MEDS: FAMOTIDINE 20 MG TABLET PO (09:12)
[2024-08-18] MEDS: MAG HYDROX/AL HYDROX/SIMETH 30 ML UDC PO (09:12)
[2024-08-18] MEDS: METOCLOPRAMIDE HCL INJ 10 MG/2 ML VIAL IM (09:50)
--- NOTE | 2024-08-18 11:06 | PC.NURSE ---
vascular access called for patiet line and labs
[2024-08-18] MEDS: MORPHINE SULFATE (*CRX) 4 MG/ML INJ IV PUSH (11:34)
[2024-08-18 11:49] LABS: Basophils Absolute Auto 0.1 K/mm3 (0.0-0.1); Basophils Percent Auto 0.8 % (0.2-1.2); Eosinophils Absolute Auto 0.1 K/mm3 (0-0.3); Eosinophils Percent Auto 0.8 % (0-4.4); Hematocrit 33.8 % (37.0-47.0); Hemoglobin 10.5 g/dL (12.0-15.0); Immature Granulocyte Absolute 0.02 K/mm3 (0.00-0.031); Immature Granulocyte Percent A 0.3 % (0-0.5); Lymphocytes Absolute Auto 1.75 K/mm3 (0.9-3.2); Lymphocytes Percent Auto 28.7 % (18.3-44.2); Mean Corpuscular HGB Conc 31.1 g/dl (32-36); Mean Corpuscular Hemoglobin 28.4 pg (26-34); Mean Corpuscular Volume 91.4 fl (80-100); Mean Platelet Volume 11.3 fl (7.4-10.4); Monocytes Absolute Auto 0.8 K/mm3 (0.1-0.6); Monocytes Percent Auto 12.3 % (2.6-8.5); Neutrophils Absolute Auto 3.5 K/mm3 (1.3-6.7); Neutrophils Percent Auto 57.1 % (45.5-73.1); Platelet Count Result 371 k/mm3 (150-375); Red Cell Distribution Width 18.5 % (11.5-14.5); White Blood Count 6.1 K/mm3 (4.5-10.0)
[2024-08-18 12:04] LABS: Alanine Aminotransferase 23 U/L (6-35); Albumin Level 3.5 g/dL (3.5-5.1); Alkaline Phosphatase 85 U/L (38-126); Anion Gap 7 mmol/L (4-12); Aspartate Amino Transferase 39 U/L (14-36); Bilirubin,Total 0.9 mg/dL (0.2-1.3); Blood Urea Nitrogen 6 mg/dL (7-17); Calcium 8.3 mg/dL (8.4-10.2); Carbon Dioxide 32 mmol/L (22-30); Chloride 99 mmol/L (98-107); Estimated CRCL calculation 211 ml/min; Estimated Glomerular Filt Rate > 60; Glucose 91 mg/dL (65-110); Lipase 72 U/L (23-300); Potassium 2.4 mmol/L (3.4-5.0); Sodium 138 mmol/L (137-145)
--- NOTE | 2024-08-18 12:07 | ECG_ITS ---
Test Date: 2024-08-18 12:28:42 Measurements Intervals [place] Rate: 76 P: 51 AK: 171 QRS: 2 QRSD: 100 T: 12 QT: 454 QTc: 511 Interpretive Statements SINUS RHYTHM POSSIBLE LEFT ATRIAL ENLARGEMENT [-0.1mV P-WAVE IN V1/V2] POSSIBLE LEFT VENTRICULAR HYPERTROPHY [VOLTAGE CRITERIA PLUS LAE OR QRS WIDENING] PROLONGED QT INTERVAL ABNORMAL ECG No previous ECG available for comparison Electronically Signed On 08-19-2024 10:12:07 CDT by Jax Butt M.D.
[2024-08-18] MEDS: POTASSIUM CHLORIDE 20 MEQ ER TABLET 40 MEQ PO ×2 (12:28→13:44)
[2024-08-18] MEDS: LACTATED RINGERS 1,000 ML 999 ML IV CONT (12:28)
[2024-08-18] MEDS: KCL 20 MEQ/SW 100 ML 100 ML 50 MEQ IVPB (12:28)
[2024-08-18 12:50] LABS: Magnesium 1.5 mg/dL (1.6-2.3)
[2024-08-18] MEDS: MAGNESIUM SULF 2 GM/WATER 50ML 2 GM/50 ML BAG IVPB (13:44)
[2024-08-18 15:28] LABS: Anion Gap 3 mmol/L (4-12); Blood Urea Nitrogen 5 mg/dL (7-17); Calcium 8.1 mg/dL (8.4-10.2); Carbon Dioxide 34 mmol/L (22-30); Chloride 100 mmol/L (98-107); Estimated CRCL calculation 147 ml/min; Estimated Glomerular Filt Rate > 60; Glucose 92 mg/dL (65-110); Potassium 3.1 mmol/L (3.4-5.0); Sodium 137 mmol/L (137-145)
== END 2024-08-18 16:31 | disposition home or self-care (01) ==
PROVIDERS: Emergency Provider Emergency Medicine; PCP Emergency Medicine
DX: R11.2 Nausea with vomiting, unspecified (principal); E87.6 Hypokalemia; R10.13 Epigastric pain; K21.9 Gastro-esophageal reflux disease without esophagitis; I10 Essential (primary) hypertension; F32.A Depression, unspecified; F41.9 Anxiety disorder, unspecified; Z98.84 Bariatric surgery status; Z92.3 Personal history of irradiation; Z92.21 Personal history of antineoplastic chemotherapy; Z85.79 Personal history of other malignant neoplasms of lymphoid, hematopoietic and related tissues; Z85.00 Personal history of malignant neoplasm of unspecified digestive organ; Z90.79 Acquired absence of other genital organ(s); Z79.899 Other long term (current) drug therapy; R94.31 Abnormal electrocardiogram [ECG] [EKG]
CPT/HCPCS: 36415; 80048; 80053; 83690; 83735; 85025; 93005; 96361; 96365; 96366; 96367; 96372; 96375; 99284; A9270; J2270; J2765; J3475; J3480; J7120

== ENCOUNTER 2024-12-23 16:53 | Emergency (ER) | payer OTHER, SELFPAY ==
[2024-12-23 16:56] VITALS: BP 151/114; PULSE 102; RESP 20; TEMP 36.4; O2SAT 98
[2024-12-23 17:22] VITALS: BP 150/88; PULSE 107; RESP 20; TEMP 36.8; O2SAT 100
[2024-12-23 17:42] VITALS: BP 150/88; PULSE 105; RESP 20; TEMP 36.9; O2SAT 100
--- NOTE | 2024-12-23 17:49 | ED.PSYCH ---
HPI - Psych General Chief Complaint: Psychiatric Symptoms Stated Complaint: mental health issues SI Time Seen by Provider: 12/23/24 17:26 Source: patient Mode of arrival: ambulatory Limitations: no limitations History of Present Illness HPI Narrative: This is a 39-year-old female with PMH of anxiety, depression who presents to the ED for chief complaint of suicidal ideation. Patient states that she has been feeling this way for about 2 weeks but does not have any kind of plan. States she has not done anything because has not been convenient to do anything in regard to suicidal attempt. States that her friend very recently . She also states that she has had suicide attempt in the past in 2021 when her daughter . States she has many life stressors going on, however the of her close friend recently is what is pushing her to have these suicidal thoughts. She feels that things are meaningless and she does endorse depression. States that she has been out of Zoloft for 4 months. Denies HI. Denies hallucinations. Denies any other substance use. Related Data Home Medications ?Medication ?Instructions ?Recorded ?Confirmed ?Last Taken ?Type omeprazole 40 mg capsule,delayed 40 mg PO DAILY 12/18/19 07/12/24 11/06/21 History release sertraline 50 mg tablet 50 mg PO DAILY 12/18/19 07/12/24 11/06/21 History lurasidone 40 mg tablet 40 mg PO DAILY 12/27/23 07/12/24 Unknown History sertraline 25 mg tablet 25 mg PO DAILY 12/27/23 07/12/24 Unknown History Allergies Allergy/AdvReac Type Severity Reaction Status Date / Time peanut Allergy Severe RASH, Verified 12/23/24 17:00 THROAT SWELLING adhesive AdvReac Intermediate RASH/ Verified 12/23/24 17:00 BLISTERS lidocaine AdvReac Intermediate Rash Verified 12/23/24 17:00 Review of Systems Review of Systems: All systems as dictated in HPI [facility] Past Medical History Medical History Anxiety Depression Distal radius fracture, right History of gastroesophageal reflux (GERD) Hypertension 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 PONV (postoperative nausea and vomiting) Wears glasses Surgical History Surgical History History of left salpingo-oophorectomy History of sleeve gastrectomy Family History Family History Mother Family history of thyroid disease Family history of chronic obstructive pulmonary disease Sibling Hypertension Asthma Family history of arthritis Family history of malignant neoplasm of uterus Father Family history of lung cancer Other Diabetes mellitus Distal radius fracture, right Family history of allergic disorder Family history of cardiovascular disease Social History Social History Alcohol intake: current Substance use: never Substance use type: does not use Living arrangements: with family Additional living arrangements comments: CHILDREN Spiritual care concerns: No Exam Narrative: GENERAL: Well-appearing, well-nourished, and in no acute distress. HEAD: Normocephalic, atraumatic. EYES: PERRLA and EOMI. ENT: Nares clear, no rhinorrhea or epistaxis. Mucous membranes moist. Oropharynx without tonsillar hypertrophy exudate or other lesions. NECK: Supple. No adenopathy or masses. CHEST: No respiratory distress. Clear to auscultation. No wheezes rales or rhonchi HEART: Regular rate and rhythm. No murmur heard. Normal peripheral pulses. ABDOMEN: Soft, nontender, nondistended, normal active bowel sounds. MSK: Normal range of motion. No edema. SKIN: Warm, dry, no rash. NEURO: Alert and oriented x4. No focal deficits. PSYCH: Normal mood and affect. Course Vital Signs Vital signs: Vital Signs Temperature 97.6 F 12/23/24 16:56 Pulse Rate 102 H 12/23/24 16:56 Respiratory Rate 20 12/23/24 16:56 Blood Pressure 151/114 H 12/23/24 16:56 Pulse Oximetry 98 12/23/24 16:56 Temperature 98.5 F 12/23/24 17:42 Pulse Rate 104 H 12/24/24 00:34 Respiratory Rate 20 12/24/24 00:34 Blood Pressure 162/98 H 12/24/24 00:34 Pulse Oximetry 99 12/24/24 00:34 Oxygen Delivery Room Air 12/23/24 17:22 MDM - Psych MDM Narrative Medical decision making narrative: This is a 39-year-old female who presents to the ED for chief complaint of suicidal ideation x2 weeks. No description of any plan. Denies HI. Vitals are normal. Exam remarkable for the above. On her laboratory workup today she does have hypokalemia of 2.8. No emergent findings on the EKG. Potassium was replaced IV and orally. UA shows evidence of nitrite positive urine indicating UTI. She was started on Rocephin as well. Patient is medically clear for crisis evaluation. Patient has been cleared from a crisis standpoint. They feel comfortable with safety plan. I do feel this is reasonable as patient did not have attempted has no plan for suicide. She was expressing passing suicidal thoughts to myself and the crisis team. The crisis team has ensured that the patient has good follow-up information and patient feels comfortable going home and contacting her insurance to get into a new psychiatrist. Pt will be discharged in stable condition. Return precautions given and supportive measures discussed. Pt is understanding and agreeable with plan for discharge and follow-up with PCP/psych. Lab Data 12/23/24 17:44 12/23/24 22:25 Labs: Lab Results 12/23/24 12/23/24 Range/Units 17:44 22:25 WBC 3.3 L (4.5-10.0) K/mm3 RBC 4.02 L (4.2-5.4) M/mm3 Hgb 11.0 L (12.0-15.0) g/dL Hct 35.3 L (37.0-47.0) % MCV 87.8 (80-100) fl MCH 27.4 (26-34) pg MCHC 31.2 L (32-36) g/dl RDW 21.5 H (11.5-14.5) % Plt Count 195 (150-375) k/mm3 MPV 10.5 H (7.4-10.4) fl Immature Gran % (Auto) 0.3 (0-0.5) % Neut % (Auto) 41.2 L (45.5-73.1) % Lymph % (Auto) 47.9 H (18.3-44.2) % [place] % (Auto) 7.0 (2.6-8.5) % Eos % (Auto) 3.0 (0-4.4) % Baso % (Auto) 0.6 (0.2-1.2) % Lymph # (Auto) 1.57 (0.9-3.2) K/mm3 [place] # (Auto) 0.2 (0.1-0.6) K/mm3 Eos # (Auto) 0.1 (0-0.3) K/mm3 Baso # (Auto) 0.0 (0.0-0.1) K/mm3 Abs Immat Gran (auto) 0.01 (0.00-0.031) K/mm3 Absolute Neuts (auto) 1.4 (1.3-6.7) K/mm3 Absolute Nucleated RBC 0.000 (0.0-0.012) K/mm3 Nucleated RBC % 0.0 (0.0-0.2) % Sodium 146 H 142 (137-145) mmol/L Potassium 2.8 L* 3.2 L (3.4-5.0) mmol/L Chloride 106 105 (98-107) mmol/L Carbon Dioxide 29 24 (22-30) mmol/L Anion Gap 11 13 H (4-12) mmol/L BUN 9 10 (7-17) mg/dL Creatinine 0.50 L 0.44 L (0.7-1.0) mg/dL Estim Creat Clear Calc 178 199 ml/min Estimated GFR > 60 > 60 (59 - ) Glucose 94 92 (65-110) mg/dL Calcium 8.0 L 8.0 L (8.4-10.2) mg/dL Total Bilirubin 0.6 (0.2-1.3) mg/dL AST 33 (14-36) U/L ALT 17 (6-35) U/L Alkaline Phosphatase 95 (38-126) U/L Total Protein 7.0 (6.3-8.2) g/dL Albumin 3.8 (3.5-5.1) g/dL TSH (Reflex) 2.300 (0.465-4.68) uIU/mL Urine Color Yellow (Yellow) Urine Appearance Cloudy H (Clear) Urine pH 5.5 (5.0-9.0) Ur Specific [place] 1.020 (1.001-1.035) Urine Protein Trace (Negative) mg/dL Urine Glucose (UA) Negative (Negative) mg/dL Urine Ketones Trace H (Negative) mg/dL Ur Blood (Man) Negative (Negative) Urine Nitrate Positive H (Negative) Urine Bilirubin Negative (Negative) Urine Urobilinogen 1.0 (<2.0) mg/dL Leukocyte Esterase Rfl 2+ H (Negative) BLAIR/UL Urine RBC 0-2 (0-2) /hpf Urine WBC 51-100 H (0-3) /hpf Ur Squamous Epith Cells Few (Few) /hpf Urine Bacteria 4+ H /hpf Urine Casts 0-2 Urine Opiates Screen Negative (Negative) Urine Methadone Screen Negative (Negative) Ur Barbiturates Screen Negative (Negative) Ur Phencyclidine Scrn Negative (Negative) Ur Amphetamine Screen Negative (Negative) U Benzodiazepines Scrn Negative (Negative) Urine Cocaine Screen Negative (Negative) U Cannabinoids Screen Negative (Negative) Ethyl Alcohol 249 (<10) mg/dL Influenza A (RT-PCR) Negative (Negative) Influenza B (RT-PCR) Negative (Negative) RSV (RT-PCR) Negative (Negative) SARS-CoV-2 RNA (RT-PCR) Negative (Negative) Discharge Plan Discharge Clinical Impression: Depression Patient Disposition: Home, Self-Care Condition: Stable Instructions: Antibiotic Form, Depression (ED) Additional Instructions: If you have any new or worsening symptoms please return to the ER for further evaluation. Patient Language: [place] Prescriptions: No Action omeprazole 40 mg capsule,delayed release(DR/EC) 40 mg PO DAILY sertraline 50 mg tablet 50 mg PO DAILY sertraline 25 mg tablet 25 mg PO DAILY lurasidone 40 mg tablet 40 mg PO DAILY benzonatate 150 mg capsule 150 mg PO TID PRN (Reason: cough) Qty: 30 0RF prednisone 50 mg tablet 50 mg PO DAILY Qty: 5 0RF potassium chloride 20 mEq tablet extended release 20 meq PO DAILY Qty: 7 0RF famotidine 20 mg tablet 20 mg PO DAILY Qty: 30 0RF dicyclomine 20 mg tablet 20 mg PO TID PRN (Reason: abdominal pain) Qty: 30 0RF alum-mag hydroxide-simeth [Maalox Advanced] 200-200-20 mg/5 mL suspension 10 ml PO QID PRN (Reason: dyspepsia) Qty: 300 0RF Rx Instructions: administer between meals and at bedtime ondansetron 4 mg tablet,disintegrating 4 mg PO Q8H PRN (Reason: nausea and vomiting) Qty: 10 0RF Follow-up/Referrals: Bib Kramer MD [Primary Care Provider] -
[2024-12-23 17:56] LABS: Basophils Percent Auto 0.6 % (0.2-1.2); Eosinophils Absolute Auto 0.1 K/mm3 (0-0.3); Hematocrit 35.3 % (37.0-47.0); Immature Granulocyte Absolute 0.01 K/mm3 (0.00-0.031); Immature Granulocyte Percent A 0.3 % (0-0.5); Lymphocytes Absolute Auto 1.57 K/mm3 (0.9-3.2); Lymphocytes Percent Auto 47.9 % (18.3-44.2); Mean Corpuscular HGB Conc 31.2 g/dl (32-36); Mean Corpuscular Hemoglobin 27.4 pg (26-34); Mean Corpuscular Volume 87.8 fl (80-100); Mean Platelet Volume 10.5 fl (7.4-10.4); Monocytes Absolute Auto 0.2 K/mm3 (0.1-0.6); Neutrophils Absolute Auto 1.4 K/mm3 (1.3-6.7); Neutrophils Percent Auto 41.2 % (45.5-73.1); Platelet Count Result 195 k/mm3 (150-375); Red Blood Count 4.02 M/mm3 (4.2-5.4); Red Cell Distribution Width 21.5 % (11.5-14.5); White Blood Count 3.3 K/mm3 (4.5-10.0)
[2024-12-23 18:11] LABS: Add Urine Microscopic? YES; Appearance Urine Cloudy (Clear); Bacteria Urine 4+ /hpf; Bilirubin Urine Negative (Negative); Blood Urine Negative (Negative); Color Urine Yellow (Yellow); Ethanol 249 mg/dL (<10); Glucose Urine UA Negative (Negative); Ketones Urine Trace mg/dL (Negative); Leukocyte Esterase Ur 2+ LEU/UL (Negative); Nitrate Urine Positive (Negative); Non Pathogenic Casts 0-2; Protein Urine Trace mg/dL (Negative); RBC Urine 0-2 /hpf (0-2); Squamous Epithelial Cell Urine Few /hpf (Few); WBC Urine 51-100 /hpf (0-3); pH Urine 5.5 (5.0-9.0)
[2024-12-23 18:15] LABS: Alanine Aminotransferase 17 U/L (6-35); Albumin Level 3.8 g/dL (3.5-5.1); Alkaline Phosphatase 95 U/L (38-126); Anion Gap 11 mmol/L (4-12); Aspartate Amino Transferase 33 U/L (14-36); Bilirubin,Total 0.6 mg/dL (0.2-1.3); Blood Urea Nitrogen 9 mg/dL (7-17); Carbon Dioxide 29 mmol/L (22-30); Chloride 106 mmol/L (98-107); Estimated CRCL calculation 178 ml/min; Estimated Glomerular Filt Rate > 60; Glucose 94 mg/dL (65-110); Potassium 2.8 mmol/L (3.4-5.0); Sodium 146 mmol/L (137-145)
--- NOTE | 2024-12-23 18:21 | ECG_ITS ---
Test Date: 2024-12-23 18:41:40 Measurements Intervals [place] Rate: 81 P: 55 [place]: 177 QRS: 8 QRSD: 105 T: 24 QT: 397 QTc: 461 Interpretive Statements SINUS RHYTHM DELAYED PRECORDIAL R/S TRANSITION MINIMAL Q WAVES- HIGH LATERAL LEADS BORDERLINE ECG Compared to ECG 08/18/2024 12:28:42 Prolonged QT interval no longer present Electronically Signed On 12-23-2024 19:09:47 CORRECTIONAL PROBATION OFFICER by Shane Casiano D.O.
[2024-12-23 18:22] LABS: Barbiturate Screen Urine Negative (Negative); Benzodiazepines Screen Urine Negative (Negative)
[2024-12-23 18:24] LABS: Amphetamine Screen Urine Negative (Negative); Cannabinoid Screen Urine Negative (Negative); Cocaine Screen Urine Negative (Negative); Methadone Screen Urine Negative (Negative); Phencyclidine Screen Urine Negative (Negative)
--- OUTSIDE RECORDS SUMMARY | 2024-12-23 18:32 | XMS_ITS | Clinical Summary ---
Author Organization [facility] [place] [address] Address [address] [place] [address] Care Team Providers Care Regional Program Manager Name Role Phone José Mishra MD Unavailable [phone] Eddie Tobin MD Unavailable [phone] Bib Kramer MD Primary Care Provider [phone] Aden Amato MD Unavailable [phone] Allergies Active Allergy Reactions Criticality Noted Date Comments Adhesive Tape-Silicones Rash Medium 03/25/2018 Lidocaine Rash High 04/02/2019 Swelling Peanut Swelling,Other (See comments) High 04/02/2019 And dyspnea Medications ergocalciferol (VITAMIN D) 50,000 unit capsule Take 1 capsule (50,000 Units total) by mouth once a week On Mondays02/26/20 19 Active sertraline (ZOLOFT) 25 mg tablet Take 3 tablets (75 mg total) by mouth daily 03/12/20 24 Active lurasidone (LATUDA) 40 mg tablet Take 1 tablet (40 mg total) by mouth daily 03/13/20 24 Active cyanocobalamin (Vitamin B-12) 1,000 mcg/mL injection Inject 1 mL (1,000 mcg total) under the skin every 30 (thirty) days 1 mL 2 05/08/20 24 Active cyanocobalamin (Vitamin B-12) 500 mcg tabletIndications: Prevention of Vitamin B12 Deficiency Take 1 tablet (500 mcg total) by mouth daily 30 tablet 11 04/10/20 24 025 Active traMADoL (ULTRAM) 50 mg tablet Take 1 tablet (50 mg total) by mouth every 6 (six) hours as needed for pain for up to 10 days 40 tablet 04/09/20 24 Active Additional Information Patient not taking.Reported on 04/15/2024 HYDROcodone-acetam inophen (NORCO) 5-325 mg per tabletIndications: Pain Take 1 tablet by mouth every 6 (six) hours as needed for pain 10 tablet 04/11/20 24 Active ondansetron ODT (ZOFRAN-ODT) 4 mg disintegrating tablet Take 1 tablet (4 mg total) by mouth every 8 (eight) hours as needed for nausea or vomiting 20 tablet 04/11/20 24 Active phenazopyridine (Pyridium) 100 mg tablet Take 1-2 tablets (100-200 mg total) by mouth 3 (three) times a day as needed for urinary pain 30 tablet 1 04/28/20 24 Active oxyBUTYnin (DITROPAN) 5 mg tablet Take 1 tablet (5 mg total) by mouth 3 (three) times a day as needed (bladder spasms) 30 tablet 1 04/28/20 24 Active ketorolac (TORADOL) 10 mg tablet Take 1 tablet (10 mg total) by mouth every 6 (six) hours as needed for pain 20 tablet 04/28/20 24 Active Active Problems Problem Noted Date Diagnosed Date Renal stone 04/09/2024 Calculus of upper urinary tract 04/06/2024 Hydronephrosis with urinary obstruction due to ureteral calculus 04/06/2024 Overview (04/06/2024): Proximal R ureter, 6.5 mm stone Peanut allergy 04/06/2024 Complicated UTI (urinary tract infection) 2023 Hx of gastric bypass 04/06/2024 Iron deficiency anemia 07/25/2022 Acute hypokalemia 04/30/2021 Oropharyngeal carcinoma 12/25/2018 Epigastric abdominal pain AGE (acute gastroenteritis) Surgical History Surgery Date Site/Laterality Comments URETERAL STENT PLACEMENT VIA EXISTING TRACT BILATERAL 04/07/2024 Bilateral ESOPHAGOGASTRODUODENOSCOPY 11/28/2019 - 12/26/2019 LAPAROSCOPIC GASTRIC BYPASS 11/28/2019 - 12/26/2019 REVISION CHOLECYSTECTOMY BREAST SURGERY augmentation HYSTERECTOMY SECTION Family History Medical History Relation Name Comments Cancer Father Relation Name Status Comments Father LUNG CX Social History Tobacco Use Types Packs/Day Years Used Date Smoking Tobacco: Never Smokeless Tobacco: Never Tobacco Cessation:Counseling Given: Not Answered Alcohol Use Standard Drinks/Week Comments Not Currently 0 (1 standard drink = 0.6 oz pur e alcohol) [facility] Utilities Answer Date Recorded In the past 12 months has e [employer], gas, oil, or water Wattage threatened to shut off services in your home? No 04/07/2024 Social Connection and Isolat ion Panel [NHANES] Answer Date Recorded In a typical week, how many times do you talk on the phone with family, friends, or neighbors? Three times a week 04/07/2024 How often do you get togethe r with friends or relatives? Three times a week 04/07/2024 How often do you attend chur ch or amish services? More than 4 times per year 04/07/2024 Do you belong to any clubs o r organizations such as shinto groups, unions, fraternal or athletic groups, or school groups? Yes 04/07/2024 How often do you attend meet ings of the clubs or organizations you belong to? Never 04/07/2024 Are you , , di vorced, , never , or living with a partner? 04/07/2024 AUDIT-C Answer Date Recorded Q1: How often do you have a drink containing alcohol? Never 04/28/2024 Q2: How many drinks containi ng alcohol do you have on a typical day when you are drinking? Patient does not drink Q3: How often do you have si x or more drinks on one occasion? Never 04/28/2024 Overall Financial Resource Strain (CARDIA) Answe r Date Recorded How hard is it for you to pa y for the very basics like food, housing, medical care, and heating? Not hard at all 04/07/2024 Hunger Vital Sign Answer Date Recorded Within the past 12 months, y ou worried that your food would run out before you got the money to buy more. Never true 04/07/20 24 Within the past 12 months, t he food you bought just didn't last and you didn't have money to get more. Never true 04/07/2024 PRAPARE - Transportation Answer Date Re corded In the past 12 months, has l ack of transportation kept you from medical appointments or from getting medications? No 03/28 In the past 12 months, has l ack of transportation kept you from meetings, work, or from getting things needed for daily living? No 04/07/2024 Housing Stability Vital Sign Answer Abdiel e Recorded In the last 12 months, was t here a time when you were not able to pay the mortgage or rent on time? No 04/07/2024 In the past 12 months, how m any times have you moved where you were living? 0 04/07/2024 At any time in the past 12 m [facility], were you homeless or living in a fdc (including now)? No 04/07/2024 Personal Safety Answer Date Recorded Have you ever been in or are you currently in a harmful physical or emotional relationship or is someone making you feel afraid or unsafe? 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 Gender Identity Female 04/07/2024 12:49 PM CDT Sexual Orientation Straight 04/07/2024 12 :49 PM CDT Obstetrics History Last Filed Vital Signs Vital Sign Reading Time Taken Comments Blood Pressure 156/96 04/28/2024 7:35 PM CDT Pulse 98 04/28/2024 7:35 PM CDT Temperature 36.3 C (97.4 F) 04/28/2024 7:05 PM CDT Respiratory Rate 16 04/28/2024 7:35 PM CDT Oxygen Saturation 98% 04/28/2024 7:3 5 PM CDT Inhaled Oxygen Concentration - - Weight 110.5 kg (243 lb 9.6 oz) 024 3:24 PM CDT with shoes Height 167.6 cm (5' 6 ) 04/15/2024 3:24 PM CDT Body Mass Index 39.32 04/15/2024 3:24 PM CDT Plan of Treatment Health Maintenance Due Date Last Done Comments Depression Screening 1986 Hepatitis C Screening 1986 DTaP/Tdap/Td Vaccine (1 - Tdap) 1997 Varicella Vaccines (1 of 2 - 13+ 2-dose series) 1999 Regular Well Visit/Exam 18-64 2004 Covid-19 Vaccine (3 - 2023-2 5 season) 2024 04/07/2021, 03/17/2021 Influenza Vaccine (#1) 2024 8, 09/03/2016 Hepatitis B Screening Completed 08/13/2014 HPV Vaccines Aged Out No longer eligi ble based on patient's age to complete this topic Pneumococcal vaccine <65 Aged Out No longer eligible based on patient's age to complete this topic Medical Devices Explanted Type Area Dealer Support Technician Device Identifier Shelf Expiration Date Model / Serial / Lot [employer] [id number] 6fr 24cm 145cm Radiopaque Positioner Filiform Flexible Tip - [id number] Implanted:Qty: 1 on 04/07/2024 by Heather Esparza MD at [facility] Explanted:Qty: 1 on 04/28/2024 by Heather Esparza MD at [facility] Right: Ureter [employer] 01/23/2027 [id number] / / [employer] [id number] 6fr 24cm 145cm Radiopaque Positioner Filiform Flexible Tip - [id number] Implanted:Qty: 1 on 04/07/2024 by Heather Esparza MD at [facility] Explanted:Qty: 1 on 04/28/2024 by Heather Esparza MD at [facility] Left: Ureter [employer] 12/10/2026 [id number] / / [employer] [id number] 6fr 24cm 145cm Radiopaque Positioner Filiform Flexible Tip - [id number] Implanted:Qty: 1 on 04/28/2024 by Heather Esparza MD at [facility] Explanted:Qty: 1 on 05/20/2024 by Heather Esparza MD Right: Ureter [employer] [id number] 01/23/2027 [id number] / / [id number] Insurance [facility] [employer] [facility] ACC[facility] Advance Directives For more information, please contact: [phone] * Full Code (Latest Code Status on File) Date Activated Date Inactivated Comments 04/06/2024 8:05 PM 04/09/2024 5:19 PM * Full Code Date Activated Date Inactivated Comments 04/30/2021 7:57 PM 05/03/2021 6:08 PM Care Teams Regional Program Manager Relationship Specialty Start Date End Date Bib Kramer MD [address] [address] [place] [address] PCP - General Emergency Medicine 04/06/24 José Mishra MD Radiation Oncologist Radiation Oncology 06/28/22 Eddie Tobin MD Medical Oncologist/Wash Operator Medical Oncology 07/18/22 Aden Amato MD [facility] [address] [address] Medical Oncologist/Wash Operator Hematology and Oncology 04/15/24
--- OUTSIDE RECORDS SUMMARY | 2024-12-23 18:32 | XMS_ITS | Referral Summary ---
Author Organization [facility] Address [address] [place] [address] Care Team Providers Care Artists' Model Name Role Phone Darren Ortega MD Primary Care Provider [phone] Source Comments [facility],non-owned Affiliates and Associated Physician Practices is amultiple site organization consisting of ambulatory clinics and hospital sitesin [place], [place], [place] and [place]. This disclosure is being madepursuant to the Care Everywhere program and may not contain all information available regarding this patient. Last updated 18.[facility] Allergies Active Allergy Reactions Criticality Noted Date Comments Adhesive Sensitivity Rash Medium 03/25/2018 Lidocaine Rash High Swelling Peanut-Derived Swelling Medications * Be aware that medications may not be up to date on this document. Alwaysverify current medications with the patient. Medication Sig Dispensed Refills Start Date End Date Status vitamin D, ergocalciferol, (DRISDOL) 1.25 MG (28942 UT) capsule Take 50,000 Units by mouth every 30 days Active omeprazole (PRILOSEC) 40 MG capsule Take 40 mg by mouth once daily 10/22/2019 Active sertraline (ZOLOFT) 50 MG tablet Take 50 mg by mouth at bedtime 10/22/2019 Active Active Problems Problem Noted Date Diagnosed Date Morbid obesity due to excess calories 06/29/2020 Depression screen 04/07/2018 Overview (05/13/2018): 04/07/2018 Su Angulo was screened for depression using the [place] Depression Scale (EPDS) at her [facility] initial evaluation on 04/07/2018. Her initial score at baseline was 12. Based off of her score of 12, Su will receive follow up call from [facility] social service director Jayda Oakes within the week. Patient will continue to be screened throughout , at intervals no closer than two weeks, for continued surveillance and early identification of depression until delivery. Patient reports mental health history. Diagnoses include anxiety & depression. Su was provided with a packet for further assistance including information on both the MOMs line and MOMs support group, 24-hr crisis services, and additional resources for further guidance and support. 04/07/18- SW aware of score and discussed with patient- she denied any thoughts of self harm within the last week- resources given and SW will follow up in next 10 days or so 04/28/18- Attempted follow up, VM left for patient 05/07/18-Attempted follow up, VM left for patient 05/13/18- Attempted follow up, VM left for patient- this was the 3rd unsuccessful attempt, therefore no other attempts will be made abnormality in previous - Left U TD A2,3 03/28/2018 Overview (04/07/2018): Images from the original note were not included. [facility] PATIENT--PLEASE CALL [phone] (ex 2) IF TRIAGED OR ADMITTED Care Provider: Dr. Marisel Brooks [facility] [place] consultants involved: RN-Dio/Paco; Lauren-Geoff; Urology- Shante Diagnosis: Left UTD A2,3 follow up: Ok to deliver at hospital of parents' choosing a. Strict I/O s during hospital stay b. Monitor blood pressure during hospital stay c. 48 hours of life obtain lytes and creatinine d. Start prophylactic Amoxicillin 20 mg/kg PO daily e. 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 Aguirre Planned surveillance: Repeat US at 36w at [facility] Delivery location, mode, and GA: TBD, hx at term Autopsy indicated: Genetics note: [employer] Concerns: 04/07/18- Patient with mental health history, depression and anxiety- currently on Zoloft. Did sunil Hardly to question #10- most recent thoughts of self harm within last 6 months- no attempts, no plan Care plan based on evaluation and is subject to change based on assessment. See Images or Cardiac under Chart Review for US/ ECHO/ MRI reports. Encounter for ultrasound rec heck of pyelectasis, antepartum 03/25/2018 H/O gastric bypass 03/25/2018 Obesity affecting , antepartum 03/25/20 18 Anemia affecting , antepartum 8 Immunizations Name Administration Dates Next Due Covid Pfizer primary Monovalent 12+ yr 0.3ml Covid Pfizer primary monoval ent 12+ yr 0.3mL Purple cap 04/07/2021,03/17/2021 Social History Tobacco Use Types Packs/Day Years Used Date Smoking Tobacco: Never Smokeless Tobacco: Never Alcohol Use Standard Drinks/Week Comments Not Currently 0 (1 standard drink = 0.6 oz pur e alcohol) Sex and Gender Information Value Date Recorded Sex Assigned at Not on file Gender Identity Not on file Sexual Orientation Not on file Last Filed Vital Signs Vital Sign Reading Time Taken Comments Blood Pressure 122/82 07/07/2020 11:15 AM CDT Pulse 85 07/07/2020 11:15 AM CDT Temperature 36.9 C (98.5 F) 07/07/2020 11:15 AM CDT Respiratory Rate 16 06/30/2020 11:33 AM CDT Oxygen Saturation 100% 06/30/2020 11:33 AM CDT Inhaled Oxygen Concentration - - Weight 134.7 kg (297 lb) 07/29/2020 12:32 PM CDT Height 167.6 cm (5' 6 ) 07/29/2020 12:32 PM CDT Body Mass Index 47.94 07/29/2020 12:32 PM CDT Functional Status Functional Status Response Date of Assess ment Is person deaf or have serious hearing difficult y? No 06/29/2020 Is person blind or have serious difficulty seein g? No 06/29/2020 Does person have serious dif ficulty walking/climbing stairs? No 06/29/2020 Does person have difficulty dressing/bathing? No 06/29/2020 Does person have difficulty doing errands alone? No 06/29/2020 Cognitive Status Response Date of Assessm ent Does person have difficulty concentrating/remembering/making decisions? No 06/29/2020 Plan of Treatment Not on file Advance Directives * Full Code (Latest Code Status on File) Date Activated Date Inactivated Comments 06/29/2020 4:43 PM 06/30/2020 4:48 PM Care Teams Artists' Model Relationship Specialty Start Date End Date Darren Ortega MD PCP - General 03/06/16
--- OUTSIDE RECORDS SUMMARY | 2024-12-23 18:32 | XMS_ITS | Patient Health Summary ---
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 This disclosure is being madepursuant to the Care Everywhere program and may not contain all information available regarding this patient. Last updated 18.[facility] [employer] Allergies * Adhesive Sensitivity(Rash) -Medium Criticality * Lidocaine(Rash) -High Criticality * Peanut-Derived(Swelling) Medications * Be aware that medications may not be up to date on this document. Alwaysverify current medications with the patient. * vitamin D, ergocalciferol, (DRISDOL) 1.25 MG (71920 UT) capsule Take 50,000 Units by mouth every 30 days * omeprazole (PRILOSEC) 40 MG capsule(Started 10/22/2019) Take 40 mg by mouth once daily * sertraline (ZOLOFT) 50 MG tablet(Started 10/22/2019) Take 50 mg by mouth at bedtime Active Problems Problem Noted Date Diagnosed Date Morbid obesity due to excess calories 06/29/2020 Depression screen 04/07/2018 abnormality in previous - Left U TD A2,3 03/28/2018 Encounter for ultrasound rec heck of pyelectasis, antepartum 03/25/2018 H/O gastric bypass 03/25/2018 Obesity affecting , antepartum 03/25/20 18 Anemia affecting , antepartum 8 Immunizations * Covid Pfizer primary Monovalent 12+ yr 0.3ml(Given 05/11/2022) * Covid Pfizer primary monovalent 12+ yr 0.3mL Purple cap(Given 04/07/2021, 03/17/2021) Social History Tobacco Use Types Packs/Day Years [...] Mass Index 47.94 07/29/2020 12:32 PM CDT Procedures * GLUCOSE - POINT OF CARE(Performed 06/30/2020) * FL UGI SERIES(Performed 06/30/2020) Performed for Morbid obesity due to excess calories (HCC) * VITAMIN D 25-HYDROXY(Performed 06/30/2020) * CBC W AUTO DIFFERENTIAL(Performed 06/30/2020) * BASIC METABOLIC PANEL (CALCIUM TOTAL)(Performed 06/30/2020) * GLUCOSE - POINT OF CARE(Performed 06/29/2020) * GLUCOSE - POINT OF CARE(Performed 06/29/2020) * ENDOTRACHEAL TUBE NOTE(Performed 06/29/2020) * [place] ED EGD FLEX TRANSORAL DX(Performed 06/29/2020) * LAPAROSCOPIC REPAIR PARAESOPHAGEAL/HIATAL HERNIA(Performed 06/29/2020) * LAPAROSCOPIC GASTRIC BYPASS(Performed 06/29/2020) * GLUCOSE - POINT OF CARE(Performed 06/29/2020) * POTASSIUM BLOOD(Performed 06/29/2020) Performed for Preop examination * HCG URINE QUALITATIVE(Performed 06/29/2020) Performed for Preop examination * SARS-COV-2 (COVID-19) IN HOUSE(Performed 06/27/2020) Performed for Preop examination * VITAMIN B12(Performed 05/30/2020) Performed for Preop examination * VITAMIN B1(Performed 05/30/2020) Performed for Preop examination * COMPREHENSIVE METABOLIC PANEL(Performed 05/30/2020) Performed for Preop examination * CBC W AUTO DIFFERENTIAL(Performed 05/30/2020) Performed for Preop examination * EKG 12-LEAD(Performed 05/30/2020) Performed for Preop examination * HELICOBACTER PYLORI UREASE (STL)(Performed 12/10/2019) Performed for Diagnosis unknown * PATHOLOGY TISSUE EXAM (STL)(Performed 12/10/2019) Performed for Diagnosis unknown * EGD(Performed 12/10/2019) Performed for Gastroesophageal reflux disease, esophagitis presence not specified, Morbid obesity due to excess calories (HCC), Preop testing, S/P bariatric surgery * [place] ED EGD FLEX TRANSORAL DX(Performed 12/10/2019) * FL UGI SERIES(Performed 11/26/2019) Performed for Gastroesophageal reflux disease, esophagitis presence not specified, Morbid obesity due to excess calories (HCC), Preop testing, S/P bariatric surgery * VITAMIN D 25-HYDROXY(Performed 11/23/2019) Performed for Morbid obesity due to excess calories (HCC), S/P bariatric surgery * VITAMIN B12(Performed 11/23/2019) Performed for Morbid obesity due to excess calories (HCC), S/P bariatric surgery * VITAMIN B1(Performed 11/23/2019) Performed for Morbid obesity due to excess calories (HCC), S/P bariatric surgery * VITAMIN A(Performed 11/23/2019) Performed for Morbid obesity due to excess calories (HCC), S/P bariatric surgery * SELENIUM(Performed 11/23/2019) Performed for Morbid obesity due to excess calories (HCC), S/P bariatric surgery * PREALBUMIN(Performed 11/23/2019) Performed for Morbid obesity due to excess calories (HCC), S/P bariatric surgery * IRON + TIBC PANEL(Performed 11/23/2019) Performed for Morbid obesity due to excess calories (HCC), S/P bariatric surgery * COPPER BLOOD(Performed 11/23/2019) Performed for Morbid obesity due to excess calories (HCC), S/P bariatric surgery * COMPREHENSIVE METABOLIC PANEL(Performed 11/23/2019) Performed for Morbid obesity due to excess calories (HCC), S/P bariatric surgery * CBC W AUTO DIFFERENTIAL(Performed 11/23/2019) Performed for Morbid obesity due to excess calories (HCC), S/P bariatric surgery * ZINC BLOOD(Performed 11/23/2019) Performed for Morbid obesity due to excess calories (HCC), S/P bariatric surgery * VITAMIN E(Performed 11/23/2019) Performed for Morbid obesity due to excess calories (HCC), S/P bariatric surgery * VITAMIN K1(Performed 11/23/2019) Performed for Morbid obesity due to excess calories (HCC), S/P bariatric surgery * BIOPHYSICAL PROFILE W NST(Performed 05/27/2018) Performed for Encounter for repeat ultrasound of pyelectasis, antepartum, single or unspecified fetus (HCC) * BIOPHYSICAL PROFILE W NST(Performed 05/20/2018) Performed for Encounter for repeat ultrasound of pyelectasis, antepartum, single or unspecified fetus (HCC) * BIOPHYSICAL PROFILE W NST(Performed 05/13/2018) Performed for Encounter for repeat ultrasound of pyelectasis, antepartum, single or unspecified fetus (HCC) * SONOGRAM - COMPLETE(Performed 05/06/2018) Performed for abnormality affecting management of mother, single or unspecified fetus (HCC) * SONOGRAM - COMPLETE(Performed 04/07/2018) Performed for abnormality affecting management of mother, single or unspecified fetus (HCC) * SONOGRAM - COMPLETE(Performed 03/26/2018) Performed for Obesity affecting , antepartum (HCC), Encounter for repeat ultrasound of pyelectasis, antepartum, single or unspecified fetus (HCC) Results * (ABNORMAL) GLUCOSE - POINT OF CARE (06/30/2020 11:36 AM CDT) Only the most recent of4 resultswithin the time period is included. Pathologist [facility] Glucose WB/POC 64(L) 70 - 106 mg/dL 06/30/2020 12:43 PM CDT [facility] Specimen Type Arterial/C apillary 06/30/2020 12:43 PM CDT [facility] Blood BLOOD SPECIMEN / Unknown 06/30/2020 11:36 AM CDT 06/30/2020 12:43 PM CDT Alexx Anderson MD LAB - POINT OF CARE ORDERABLES [facility] [address] [place] [address] * FL UGI SERIES WO KUB (06/30/2020 10:10 AM CDT) Only the most recent of2 resultswithin the time period is included. Anatomical Region Laterality Modality Abdomen Radiographic Brianne ging 06/30/2020 11:2 9 AM CDT Impressions 06/30/2020 11:30 AM CDT No obstruction or extravasation post Mable-en-Y bypass. *Reading Radiologist: Brad Genao on 06/30/2020 at 11:30 AM Narrative 06/30/2020 11:30 AM CDT Upper GI series HISTORY: Postoperative day 1. Laparoscopic partial gastrectomy with gastrojejunostomy. Hiatal hernia repair without mesh. Prior gastric sleeve FINDINGS: Comparison November 26, 2019 Esophagus emptied readily. The Mable loop shows normal peristaltic activity without stair step air-fluid levels in the Mable loop. No significant fluid in the excluded stomach. Procedure Note Brad Genao MD - 06/30/2020 Upper GI series HISTORY: Postoperative day 1. Laparoscopic partial gastrectomy with gastrojejunostomy. Hiatal hernia repair without mesh. Prior gastric sleeve FINDINGS: Comparison November 26, 2019 Esophagus emptied readily. The Mable loop shows normal peristaltic activity without stair step air-fluid levels in the Mable loop. No significant fluid in the excluded stomach. IMPRESSION No obstruction or extravasation post Mable-en-Y bypass. *Reading Radiologist: Brad Genao on 06/30/2020 at 11:30 AM Alexx Anderson MD FLUOROSCOPY ORDERABL ES * (ABNORMAL) VITAMIN D 25-HYDROXY (06/30/2020 2:54 AM CDT) Only the most recent of2 resultswithin the time period is included. Vitamin D, 25 Hydroxy 26.6(L) 30 - 100 ng/mL 06/30/2020 4:03 AM CDT [facility] Blood BLOOD SPECIMEN / Unknown Venipuncture / Unknown 06/30/2020 2:54 AM CDT 06/30/2020 3:18 AM CDT [facility] - 06/30/2020 4:03 AM CDT Vitamin D Status: Deficiency <20 ng/mL Insufficiency 20-30 ng/mL Sufficiency 30-100 ng/mL Toxicity >100 ng/mL Alexx Anderson MD LAB - CHEMISTRY SEGUN DÍAZ [facility] Organization Address City/State/ZIP Co de Phone Number [facility] [address] [place] [address] * (ABNORMAL) CBC W AUTO DIFFERENTIAL (06/30/2020 2:54 AM CDT) Only the most recent of3 resultswithin the time period is included. WBC 7.8 4.4 - 10.7 x10E9/L 06/30/2020 3:26 AM CDT [facility] WBC Corrected 06/30/2020 3:26 AM CDT [facility] RBC 4.19 3.80 - 5.20 x10E12/L 06/30/2020 3:26 AM CDT [facility] Hemoglobin 12.4 12.0 - 15.6 gm/dL 06/30/2020 3:26 AM CDT [facility] Hematocrit 39.1 35.9 - 45.5 % 06/30/2020 3:26 AM CDT [facility] MCV 93.3 80.7 - 98.3 fl 06/30/2020 3:26 AM CDT [facility] MCH 29.6 26.7 - 34.0 pg 06/30/2020 3:26 AM CDT [facility] MCHC 31.7 30.8 - 35.9 gm/dL 06/30/2020 3:26 AM CDT [facility] Platelet Count 194 153 - 416 x10E9/L 06/30/2020 3:26 AM CDT [facility] RDW-CV 14.4 12.1 - 14.9 % 06/30/2020 3:26 AM CDT [facility] MPV 13.4(H) 9.4 - 12.9 fl 06/30/2020 3:26 AM CDT [facility] Neutrophils % 75.8(H) 44.0 - 73.0 % 06/30/2020 3:26 AM CDT [facility] Lymphocytes % 15.3(L) 20.0 - 43.0 % 06/30/2020 3:26 AM CDT [facility] Monocytes % 7.2 5.0 - 13.0 % 06/30/2020 3:26 AM CDT [facility] Eosinophils % 0.9 0.0 - 6.0 % 06/30/2020 3:26 AM CDT [facility] Basophils % 0.4 0.0 - 2.0 % 06/30/2020 3:26 AM CDT [facility] Immature Granulocytes 0.4 0 - 1 % 06/30/2020 3:26 AM CDT [facility] Neutrophil Absolute 5.94 2.01 - 7.14 x10E9/L 06/30/2020 3:26 AM CDT [facility] Lymphocytes Absolute 1.20 1.07 - 3.94 x10E9/L 06/30/2020 3:26 AM CDT [facility] Monocytes Absolute 0.56 0.26 - 1.07 x10E9/L 06/30/2020 3:26 AM CDT [facility] Eosinophils Absolute 0.07 0 - 0.47 x10E9/L 06/30/2020 3:26 AM CDT [facility] Basophils Absolute 0.03 0 - 0.08 x10E9/L 06/30/2020 3:26 AM CDT [facility] Immature Granulocytes Absolute 0.03 0.00 - 0.06 x10E9/L 06/30/2020 3:26 AM CDT [facility] nRBC Auto 0 /100 WBC 06/30/2020 3:26 AM CDT [facility] Blood BLOOD SPECIMEN / Unknown Venipuncture / Unknown 06/30/2020 2:54 AM CDT 06/30/2020 3:18 AM CDT Alexx Anderson MD LAB - HEMATOLOGY ORD ERABLES [facility] [address] [place] [address] * (ABNORMAL) BASIC METABOLIC PANEL (CALCIUM TOTAL) (06/30/2020 2:54 AM CDT) [facility] Glucose 94 70 - 105 mg/dL 06/30/2020 3:41 AM CDT [facility] Sodium 136 136 - 145 mmol/L 06/30/2020 3:41 AM CDT [facility] Potassium 4.3 3.5 - 5.1 mmol/L 06/30/2020 3:41 AM CDT [facility] Chloride 105 98 - 107 mmol/L 06/30/2020 3:41 AM CDT [facility] CO2 21(L) 23 - 31 mmol/L 06/30/2020 3:41 AM CDT [facility] Calcium 8.5 8.4 - 10.4 mg/dL 06/30/2020 3:41 AM CDT [facility] Anion Gap 10 8 - 16 mmol/L 06/30/2020 3:41 AM CDT [facility] BUN 18 7 - 18.7 mg/dL 06/30/2020 3:41 AM CDT [facility] Creatinine 0.66 0.57 - 1.11 mg/dL 06/30/2020 3:41 AM CDT [facility] eGFR by MDRD >60 >60 mL/min/1.7 3m2 06/30/2020 3:41 AM CDT [facility] eGFR by MDRD >60 >60 mL/min/1.7 3m2 06/30/2020 3:41 AM CDT [facility] Blood BLOOD SPECIMEN / Unknown Venipuncture / Unknown 06/30/2020 2:54 AM CDT 06/30/2020 3:18 AM CDT Alexx Anderson MD LAB - CHEMISTRY SEGUN DÍAZ Performing Organization Address City/State/[facility] Co de Phone Number [facility] [address] [place] [address] * ETT LINE PERFORMABLE (06/29/2020 10:35 AM CDT) Narrative Laney Glez APRN-CRNA - 06/29/2020 10:35 AM CDT Laney Glez APRN-CRNA 06/29/2020 10:35 AM Endotracheal Tube Placement: Patient Location: OR. Intubation Event Date/Time: 06/29/2020 10:15 AM Procedure: intubation (54457). Procedure Section: Sedation: under general anesthesia. Indications for Airway Management: anesthesia Procedure pretreatments used? No Induction: standard IV Patient Position: sniffing Mask Ventilation: easy with oral airway. Blade Type: Zenobia Blade Size: 3 Laryngoscopy View: grade 1 (full cords) Intubation Adjuncts: stylet Tube: endotracheal tube Placement: oral Tube type: cuff - inflated Tube Size (MM): 7 Depth of Insertion (CM): 20 Measured From: lips Cuff volume (mL): 7 Cuff Inflated With: air Number of Attempts: 1. Placement Verified By: direct visualization, bilateral breath sounds, chest auscultation and CO2 monitor Tube secured with: adhesive tape. Dentition unchanged? Yes Difficult Airway? No. Procedure Start Time: 06/29/2020 10:15 AM. Staff Section Anesthesia Provider: Laney Glez APRN-EASTON, Performed the procedure Macarena Chavez MD GENERAL ANESTHESI A ORDERABLES * HCG URINE QUALITATIVE (06/29/2020 8:01 AM CDT) [facility] hCG Qualitative Urine Negative Negative 06/29/2020 8:24 AM CDT [facility] Urine URINE / Unknown Collection / Unknown 06/29/2020 8:01 AM CDT 06/29/2020 8:19 AM CDT Amber Turner DO LAB - URINALYSIS ORD ERABLES Performing Organization Address City/[facility] Co de Phone Number [facility] [address] [place] [address] * POTASSIUM BLOOD (06/29/2020 8:01 AM CDT) [facility] Potassium 3.8 3.5 - 5.1 mmol/L 06/29/2020 8:28 AM CDT [facility] Blood BLOOD SPECIMEN / Unknown Venipuncture / Unknown 06/29/2020 8:01 AM CDT 06/29/2020 8:19 AM CDT Amber Turner DO LAB - CHEMISTRY ORDE RABLES Performing Organization Address City/[facility]/ZIP Co de Phone Number [facility] [address] [place], [place] [id number] * SARS-COV-2 (COVID-19) PRE-SURGICAL/PROCEDURE (06/27/2020 12:15 PM CDT) [facility] COVID-19 PCR Not detected Not detected, Invalid 06/27/2020 7:01 PM CDT [facility] Microbiology SPECIMEN FROM NASOPHARYNGEAL STRUCTURE / Unknown Collection / Unknown 06/27/2020 12:15 PM CDT 06/27/2020 12:15 PM CDT Narrative [facility] - 06/27/2020 7:01 PM CDT This nucleic acid amplification assay performance was validated by [facility]. This test has been authorized by the Food and Drug administration (FDA)under an Emergency Use Authorization (EUA). This test has been validated in accordance with the FDA's guidance document Policy for Diagnostic Testing in Laboratories Certified to perform High Complexity Testing under CLIA prior to Emergency Use Authorization for Coronavirus Disease-2019 during the Public Health Emergency issued on December 26, 2019. FDA independent review of this validation is pending. This test is only authorized for the duration of time the declaration that circumstances exist justifying the authorization of emergency use of in vitro diagnostic tests for detection of SARS-CoV-2 virus and/or diagnosis of COVID-19 infection under section 564(b)(1) of the Act, 21 U.S.C 360bbb-3 (b)(1), unless the authorization is terminated or revoked sooner. Alexx Anderson MD LAB - MICROBIOLOGY O RDERABLES [facility] [address] [place], [place] [address], [facility] [phone] * VITAMIN B1 (05/30/2020 11:31 AM CDT) Only the most recent of2 resultswithin the time period is included. Vitamin B1 Whole Blood 130.2 66.5 - 200.0 nmol/L 06/02/2020 7:08 AM CDT [facility] ([facility]) Blood BLOOD SPECIMEN / Unknown Venipuncture / Unknown 05/30/2020 11:31 AM CDT 05/30/2020 11:54 AM CDT Narrative [facility] ([facility]) - 06/02/2020 7:08 AM CDT Test(s) 956189-Fvt. B1, Whole Blood was developed and its performance characteristics determined by [facility]. It has not been cleared or approved by the Food and Drug Administration. Performed at: - [facility] [id number] [place], [place] [id number] Hospital Corpsman: Randy Singh MD, Phone: [phone] Alexx Anderson MD LAB - CHEMISTRY SEGUN DÍAZ [facility] ([facility]) [address] [place] [address] * (ABNORMAL) COMPREHENSIVE METABOLIC PANEL (05/30/2020 11:31 AM CDT) Only the most recent of2 resultswithin the time period is included. Glucose 84 70 - 105 mg/dL 05/30/2020 12:16 PM CDT [facility] Sodium 139 136 - 145 mmol/L 05/30/2020 12:16 PM CDT [facility] Potassium 4.0 3.5 - 5.1 mmol/L 05/30/2020 12:16 PM CDT [facility] Chloride 108(H) 98 - 107 mmol/L 05/30/2020 12:16 PM CDT [facility] CO2 25 23 - 31 mmol/L 05/30/2020 12:16 PM CDT [facility] Calcium 9.0 8.4 - 10.4 mg/dL 05/30/2020 12:16 PM CDT [facility] Anion Gap 6(L) 8 - 16 mmol/L 05/30/2020 12:16 PM CDT [facility] BUN 19(H) 7 - 18.7 mg/dL 05/30/2020 12:16 PM CDT [facility] Creatinine 0.69 0.57 - 1.11 mg/dL 05/30/2020 12:16 PM CDT [facility] Alkaline Phosphatase 64 40 - 150 U/L 05/30/2020 12:16 PM CDT [facility] ALT 12 0 - 61 U/L 05/30/2020 12:16 PM CDT [facility] AST 14 5 - 34 U/L 05/30/2020 12:16 PM CDT [facility] Protein Total 7.2 6.4 - 8.3 gm/dL 05/30/2020 12:16 PM T [facility] Albumin 4.0 3.5 - 5.2 gm/dL 05/30/2020 12:16 PM CDT [facility] Bilirubin Total 0.4 0.2 - 1.0 mg/dL 05/30/2020 12:16 PM CDT [facility] eGFR by MDRD >60 >60 mL/min/1.7 3m2 05/30/2020 12:16 PM CDT [facility] eGFR by MDRD >60 >60 mL/min/1.7 3m2 05/30/2020 12:16 PM CDT [facility] Blood BLOOD SPECIMEN / Unknown Venipuncture / Unknown 05/30/2020 11:31 AM CDT 05/30/2020 11:54 AM CDT Alexx Anderson MD LAB - CHEMISTRY SEGUN DÍAZ Performing Organization Address [facility] Co de Phone Number [facility] [address] [place] [address] * VITAMIN B12 (05/30/2020 11:31 AM CDT) Only the most recent of2 resultswithin the time period is included. Pathologist [facility] Vitamin B12 317 213 - 816 pg/mL 05/30/2020 12:42 PM CDT [facility] Blood BLOOD SPECIMEN / Unknown Venipuncture / Unknown 05/30/2020 11:31 AM CDT 05/30/2020 11:54 AM CDT Alexx Anderson MD LAB - CHEMISTRY SEGUN DÍAZ Performing Organization Address [facility] Co de Phone Number [facility] [address] [place] [address] * EKG 12-LEAD (05/30/2020 10:25 AM CDT) Ventricular Rate 72 BPM [facility] Atrial Rate 72 BPM [facility] P-R Interval 154 ms [facility] QRS Duration ms 94 ms [facility] Q-T Interval ms 398 ms [facility] QTC Calculation (Bezet) 435 ms [facility] Calculated P [place] 43 degrees [facility] Calculated R [place] 10 degrees [facility] Calculated T [place] 28 degrees [facility] Interpretation EKG Normal sinus rhythm Normal ECG Confirmed by CLIFF ANDERSON MD ([id number]) on 05/31/2020 11:13:19 AM Also confirmed by CLIFF ANDERSON MD ([id number]), food editor Nuvia Luo ([id number]) on 06/01/2020 1:29:06 PM [facility] 05/30/2020 10:2 5 AM CDT 06/01/2020 1:29 PM CDT Alexx Anderson MD ECG ORDERABLES Performing Organization Address [facility] Co de Phone Number [facility] * HELICOBACTER PYLORI UREASE (STL) (12/10/2019 7:43 AM BOOT AND SADDLE REPAIR PERSON) Helicobacter pylori Urease Initial Negative Negative 12/11/2019 3:36 PM BOOT AND SADDLE REPAIR PERSON [facility] Helicobacter pylori Urease Final Negative Negative 12/11/2019 3:36 PM BOOT AND SADDLE REPAIR PERSON [facility] Comment:This is an appended report. These results have been appended to a previously preliminary verified report. Microbiology GASTRIC ANTRAL BIOPSY SPECIMEN / Unknown 12/10/2019 7:43 AM BOOT AND SADDLE REPAIR PERSON 12/10/2019 11:13 AM BOOT AND SADDLE REPAIR PERSON Alexx Anderson MD LAB - MICROBIOLOGY O RDERABLES Performing Organization Address [facility] Co de Phone Number [facility] [address] [place] [address] * GROSS + MICRO EXAM (STL) (12/10/2019 7:43 AM BOOT AND SADDLE REPAIR PERSON) Case Report Surgical Pathology Report Case: [id number] Authorizing Provider: Alexx Anderson MD Collected: 12/10/2019 07:43 AM Ordering Location: [facility] Received: 12/10/2019 09:47 AM Pathologist: Ulises Jones MD Specimen: Esophageal Biopsy 12/12/2019 7:08 AM BOOT AND SADDLE REPAIR PERSON [facility] Final Diagnosis Esophagus, biopsy: -- Gastric mucosa with minimal pathologic changes MC 12/12/2019 7:08 AM BOOT AND SADDLE REPAIR PERSON [facility] Gross Description The specimen is received in a formalin-filled container labeled with the patient's name Mary Angulo and esophageal biopsy, and consists of a moreno tissue fragment (0.5 x 0.2 x 0.2 cm). Entirely submitted in cassette A1. AMA/scs 12/12/2019 7:08 AM [facility] Microscopic Description Sections reveal a fragment of of gastric mucosa with minimal pathologic changes. A few chronic inflammatory cells with vascular congestion are noted. A PAS and Prussian blue special stain is negative. Controls are judged appropriate. 12/12/2019 7:08 AM [facility] Disclaimer All histochemical and/or immunohistochemical results are interpreted with controls that demonstrate appropriate staining reactions before reporting results. Note on use of immunocytochemistry reagents: This test was developed and its performance characteristic determined by [facility], Department of Laboratory Medicine. It has not been cleared or approved by the U.S. Food and Drug Administration (FDA). The FDA has determined that such clearance or approval is not necessary. The test is used for clinical purpose. It should not be regarded as investigational or for research. This laboratory is certified to perform high complexity testing. 12/12/2019 7:08 AM [facility] Embedded Images 12/12/2019 7:08 AM [facility] Pathology/Cytolo gy ESOPHAGEAL BIOPSY SPECIMEN / Unknown 12/10/2019 7:43 AM BOOT AND SADDLE REPAIR PERSON 12/10/2019 9:47 AM BOOT AND SADDLE REPAIR PERSON Alexx Anderson MD LAB - PATHOLOGY/CYTO LOGY ORDERABLES Performing Organization Address City/State/[facility] Co de Phone Number [facility] [address] [place] [address] * EGD (12/10/2019 7:42 AM BOOT AND SADDLE REPAIR PERSON) Narrative [facility] - 12/10/2019 7:42 AM BOOT AND SADDLE REPAIR PERSON Alexx Anderson MD 12/10/2019 7:46 AM [facility] Operative Report OPERATIVE REPORT PATIENT:Mary Angulo MR#: [id number] ADMIT DATE: 12/10/2019 6:47 AM DATE OF SURGERY: 12/10/2019 : 1985 PHYSICIAN: Alexx Anderson MD 34 yrs Body mass index is 49.55 kg/m . PREOPERATIVE DIAGNOSES: Gastroesophageal reflux disease Morbid Obesity, Body mass index is 49.55 kg/m . 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 MAC anesthesia was administered. An oral bite block was placed in the patients mouth. The gastroscope was inserted and passed thorugh the bite block into the posterior pharynx and into the esophagus. The gastroscope was further advanced to the level of the GE junction where the z-line was noted at 37 cm from the incissors. The gastroscope was further advanced and passed into the upper aspect of the gastric sleeve. The gastroscope was advanced through the remaining segments of the sleeve without issues. There was a patent pyloric channel and opening. The scope was further advanced into the duodenum. On slow withdrawal evaluation of the duodenum was normal in appearance, without ulcers, masses, bleeding or inflammatory changes. The gastroscope was further withdrawn into the distal segment of the gastric sleeve where the antrum and pylorus appeared inflamed with erythematous streaks. NILS biopsies were taken. The gastroscope was further withdrawn to the mid and upper gastric sleeve to evaluate the remaining aspect of the sleeve. It appeared intact, the entire staple line was seen and there were no ulcers. The caliber/diameter was 2-3cm but not consistent and there was evidence of a narrowing or twist at the incisura. At the level of the cardia there was may a sliding hiatal hernia. The gastroscope was straightened and further withdrawn to the level of the GE junction. The mucosa in the area of the lower esophagus appeared irregular and this was biopsied. The patient tolerated the procedure well and was taken to recovery room in stable condition. FINDINGS: post sleeve anatomy, twist/narrowing mid sleeve, gastritis and esophagitis COMPLICATIONS: None. PLAN: - F/U biopsy for NILS and esophageal biopsied -UGI pending - f/u after studies completed Alexx Anderson MD Alexx Anderson MD GI PROCEDURE ORDERAB LES Performing Organization Address [facility] Co de [place] [address] * VITAMIN A (11/23/2019 9:09 AM BOOT AND SADDLE REPAIR PERSON) Vitamin A 30.8 18.9 - 57.3 ug/dL [facility] ACCOUNT BILL Comment: Reference intervals for vitamin A determined from [facility] internal studies. Individuals with vitamin A less than 20 ug/dL are considered vitamin A deficient and those with serum concentrations less than 10 ug/dL are considered severely deficient. . This test was developed and its performance characteristics determined by [facility]. It has not been cleared or approved by the Food and Drug Administration. FASTING Blood BLOOD SPECIMEN / Unknown 11/23/2019 9:09 AM BOOT AND SADDLE REPAIR PERSON 11/23/2019 Narrative Resulting Agency Comment Lab Testing performed at: [facility] [address] [id number] Alexx Anderson MD LAB - CHEMISTRY SEGUN DÍAZ Performing Organization Address [facility] Co de Phone Number [facility] ACCOUNT BILL [address] [place] [address] * SELENIUM (11/23/2019 9:09 AM BOOT AND SADDLE REPAIR PERSON) Selenium 185 91 - 198 ug/L [facility] ACCOUNT BILL Comment:FASTING Blood BLOOD SPECIMEN / Unknown 11/23/2019 9:09 AM BOOT AND SADDLE REPAIR PERSON 11/23/2019 Narrative [facility] ACCOUNT BILL - 11/24/2019 5:07 PM BOOT AND SADDLE REPAIR PERSON Test(s) [id number], Serum/Plasma was developed and its performance characteristics determined by [facility]. It has not been cleared or approved by the Food and Drug Administration. Resulting Agency Comment Lab Testing performed at: [facility] [address] [id number] Alexx Anderson MD LAB - CHEMISTRY SEGUN DÍAZ Performing Organization Address [facility] Co de Phone Number [facility] ACCOUNT BILL [address] [place] [address] * COPPER BLOOD (11/23/2019 9:09 AM BOOT AND SADDLE REPAIR PERSON) Copper 161 72 - 166 ug/dL [facility] ACCOUNT BILL Comment: Detection Limit = 5 FASTING Blood BLOOD SPECIMEN / Unknown 11/23/2019 9:09 AM BOOT AND SADDLE REPAIR PERSON 11/23/2019 Narrative [facility] ACCOUNT BILL - 11/25/2019 7:08 AM BOOT AND SADDLE REPAIR PERSON Test(s) [id number], Serum was developed and its performance characteristics determined by [facility]. It has not been cleared or approved by the Food and Drug Administration. Resulting Agency Comment Lab Testing performed at: [facility] [address] [id number] Alexx Anderson MD LAB - CHEMISTRY SEGUN DÍAZ Performing Organization Address City/[facility]/ZIP Co de Phone Number [facility] ACCOUNT BILL [address] [place] [address] * PREALBUMIN (11/23/2019 9:09 AM BOOT AND SADDLE REPAIR PERSON) Prealbumin 16 14 - 35 mg/dL [facility] ACCOUNT BILL Comment:FASTING Blood BLOOD SPECIMEN / Unknown 11/23/2019 9:09 AM BOOT AND SADDLE REPAIR PERSON 11/23/2019 Narrative Resulting Agency Comment Lab Testing performed at: [facility] [id number] Alexx Anderson MD LAB - CHEMISTRY SEGUN DÍAZ Performing Organization Address City/[facility]/ZIP Co de Phone Number [facility] ACCOUNT BILL [address] [place] [address] * IRON + TIBC PANEL (11/23/2019 9:09 AM BOOT AND SADDLE REPAIR PERSON) TIBC 350 250 - 450 ug/dL [facility] ACCOUNT BILL UIBC 290 131 - 425 ug/dL [facility] ACCOUNT BILL Iron 60 27 - 159 ug/dL [facility] ACCOUNT BILL Iron Saturation 17 15 - 55 % [facility] ACCOUNT BILL Comment:FASTING Blood BLOOD SPECIMEN / Unknown 11/23/2019 9:09 AM BOOT AND SADDLE REPAIR PERSON 11/23/2019 Narrative Resulting Agency Comment Lab Testing performed at: [facility] [place] [id number] Alexx Anderson MD LAB - CHEMISTRY SEGUN DÍAZ Performing Organization Address [facility] Co de Phone Number [facility] ACCOUNT BILL [address] [place] [address] * VITAMIN K1 (11/23/2019 9:08 AM BOOT AND SADDLE REPAIR PERSON) [facility] Vitamin K1 0.17 0.13 - 1.88 ng/mL [facility] Comment: This test was developed and its performance characteristics determined by [facility]. It has not been cleared or approved by the Food and Drug Administration. FASTING Blood BLOOD SPECIMEN / Unknown 11/23/2019 9:08 AM BOOT AND SADDLE REPAIR PERSON 11/23/2019 Narrative Resulting Agency Comment Lab Testing performed at: [address] [id number] Alexx Anderson MD LAB - CHEMISTRY SEGUN DÍAZ Performing Organization Address [facility] Phone Number [facility] INSURANCE BILL [address] [place] [address] * ZINC BLOOD (11/23/2019 9:08 AM BOOT AND SADDLE REPAIR PERSON) [facility] Zinc, Plasma or Serum 99 56 - 134 ug/dL [facility] Comment: Detection Limit = 5 FASTING Blood BLOOD SPECIMEN / Unknown 11/23/2019 9:08 AM BOOT AND SADDLE REPAIR PERSON 11/23/2019 Narrative [facility] INSURANCE BILL - 11/25/2019 7:08 AM BOOT AND SADDLE REPAIR PERSON Test(s) [id number], Plasma or Serum was developed and its performance characteristics determined by [facility]. It has not been cleared or approved by the Food and Drug Administration. Resulting Agency Comment Lab Testing performed at: [address] [id number] Alexx Anderson MD LAB - CHEMISTRY SEGUN DÍAZ Performing Organization Address [facility] Co de Phone Number [facility] INSURANCE BILL [address] [place] [address] * VITAMIN E (11/23/2019 9:08 AM BOOT AND SADDLE REPAIR PERSON) Vitamin E Alpha Tocopherol 8.9 5.9 - 19.4 mg/L [facility] Vitamin E Gamma Tocopherol 1.4 0.7 - 4.9 mg/L [facility] Comment: Reference intervals for alpha and gamma-tocopherol determined from National Health and Nutrition Examination Survey, 2147-0423. Individuals with alpha-tocopherol levels less than 5.0 mg/L are considered vitamin E deficient. FASTING Blood BLOOD SPECIMEN / Unknown 11/23/2019 9:08 AM BOOT AND SADDLE REPAIR PERSON 11/23/2019 Narrative [facility] - 11/28/2019 11:06 PM BOOT AND SADDLE REPAIR PERSON Test(s) [id number] E(Alpha Tocopherol); 425118- Vitamin E(Gamma Tocopherol) was developed and its performance characteristics determined by [email or web address]. It has not been cleared or approved by the Food and Drug Administration. Resulting Agency Comment Lab Testing performed at: [address] [id number] Alexx Anderson MD LAB - CHEMISTRY SEGUN DÍAZ [facility] INSURANCE BILL [address] [place] [address] * BIOPHYSICAL PROFILE W NST (05/27/2018 3:32 PM CDT) Only the most recent of3 resultswithin the time period is included. Anatomical Region Laterality Modality Other 05/27/2018 3:32 PM CDT Narrative 05/27/2018 4:07 PM CDT [facility] PHONE: FAX: Pat. Name: MARY ANGULO Ramo Rivera. No: [id number] Study Date: 05/27/2018 3:32pm , Age: 06 1985, 33 Pregnancies: 6, Para 4, Ab 1 Height: 66 in Weight: 278 lb LMP: Unknown GA by Base: 38w2d CHAD: 06/08/2018 GA by US: 37w5d CHAD: 06/12/2018 GA Selected: 38w2d (From [facility]) CHAD: 06/08/2018 Referring MD: Christopher Nolasco MD Press Feeder Broomcorn: Emmanuelle Ventura [facility] CPT4: 68282,23322 BMI: 44.87 Hist/Ind: Polyhydramnios Suspected accelerated growth Bilateral urinary tract dilation Class III obesity History of facial cancer (s/p chemo & radiation, 2015) History of gastric sleeve surgery MEASUREMENTS & AGE GROWTH EVALUATION Measurement GA Range Srce %for GA Ratios ----- ---- ------- BPD 9.1 cm 37w0d (46e6w-01z9s) Hadl BPD 38% FL/BPD 0.78 (0.71 - 0.87) HC 34.9 cm 40w4d (38y1v-38u7h) Hadl HC 82% FL/AC 0.19 (0.20 - 0.24* AC 36.9 cm 40w6d (51o7e-88t0g) Hadl AC >99 HC/AC 0.95 (0.90 - 1.09) FL 7.1 cm 36w3d (57j0i-18k5p) Hadl FL 13% CI 0.71 (0.70 - 0.86) HL 6.3 cm 36w2d (84v0x-56c3f) Tang HL 16% GA for sonogram 37w5d (41c8v-13u6h) Weight Estimate: based on (HC,FL) Hadlock Weight: 3780 gm (3228-4332gm) Had : 8lbs, 5oz Normal: 3299 gm (2474-4123gm) Had Wt% 87% for 38w2d Amniotic Fluid Index: 23.9cm (07.3-23.5)* Q1: 7.4cm Q2: 6.5cm Q3: 4.8cm Q4: 5.3cm Biophysical Profile: 06/04 Breathin Tone: 2 Movement: 2 AFV: 2 EVAL, PLACENTA Presentation: cephalic Placenta: anterior Amniotic Fluid Volume: normal Anatomy!Normal!Abnormal!Suboptimal!Comments Cranium ! x ! ! ! Stomach ! x ! ! ! Kidneys ! ! x ! ! Bladder ! x ! ! ! CLINICAL SUMMARY Study number: 6 The FHR baseline was 130 bpm during today's reactive NST. The FHR variability was moderate and no decelerations were detected. IMPRESSION: 1) Ramsey gestation, 38w2d 2) The accuracy of weight estimates is highly limited at term but today's biometry is again concerning for accelerated growth 3) There is persistent mild polyhydramnios (JENN 23.9 cm) 4) Reassuring biophysical profile 5) There is persistent urinary tract dilation (10.0 mm) on the left side 6) No other abnormalities were detected on today's limited review of the anatomy NOTE: The patient was advised that ultrasound does not allow detection of all structural or chromosomal abnormalities. RECOMMEND: 1) Close maternal movement monitoring while awaiting admission for repeat delivery (scheduled in 6 days) 2) evaluation / management of urinary tract dilation Thank you for allowing us the opportunity to care for your patient. Fanny Nuñez MD <Electronic Signature> 05/27/2018 04:06pm Avel Candelaria MD [facility] ORDERABLES * SONOGRAM - COMPLETE (05/06/2018 3:29 PM CDT) Only the most recent of3 resultswithin the time period is included. Anatomical Region Laterality Modality Other 05/06/2018 3:29 PM CDT Narrative 05/06/2018 11:17 PM CDT [facility] PHONE: FAX: Pat. Name: MARY ANGULO Pat. No: [id number] Study Date: 05/06/2018 3:29pm , Age: 06 1985, 33 Pregnancies: 6, Para 4, Ab 1 Height: 66 in Weight: 278 lb LMP: Unknown GA by Base: 35w2d CHAD: 06/08/2018 GA by US: 37w2d CHAD: 05/25/2018 GA Selected: 35w2d (From [facility]) CHAD: 06/08/2018 Referring MD: Christopher Nolasco MD Press Feeder Broomcorn: Stella Pearson, LILI, RDCS CPT4: 65028,57341; BMI: 44.87 Hist/Ind: Obesity Hx of facial cancer (s/p chemo & radiation, 2015) Hx of gastric sleeve surgery Bilateral Pyelectasis Growth MEASUREMENTS & AGE GROWTH EVALUATION Measurement GA Range Srce %for GA Ratios ----- ---- ------- BPD 8.8 cm 35w4d (05q7u-42f7y) Hadl BPD 61% FL/BPD 0.78 (0.71 - 0.87) HC 33.7 cm 38w4d (13b1z-99n1h) Hadl HC 89% FL/AC 0.19 (0.20 - 0.24* AC 36.0 cm 39w6d (27t1f-42q2y) Hadl AC >99 HC/AC 0.94 (0.93 - 1.12) FL 6.8 cm 35w0d (39v6k-04j0h) Hadl FL 35% CI 0.73 (0.70 - 0.86) GA for sonogram 37w2d (23v8f-52c4p) Weight Estimate: based on (BPD,HC,AC,FL) Avg Weight: 3411 gm (2913-3909gm) Had : 7lbs, 8oz Normal: 2664 gm (1997-3329gm) Had Wt% >97 for 35w2d Heart Rate: 159 bpm Amniotic Fluid Index: 29.0cm (07.8-24.9)* Q1: 9.5cm Q2: 6.7cm Q3: 6.3cm Q4: 6.5cm Biophysical Profile: 08/06 Breathin Tone: 2 NST: 2 Movement: 2 AFV: 2 EVAL, PLACENTA Presentation: cephalic Placenta: anterior Heart Rate: 159 bpm Amniotic Fluid Volume: polyhydramnios Anatomy!Normal!Abnormal!Suboptimal!Comments Cranium ! x ! ! ! Mdl (CSP/Thal! x ! ! ! Stomach ! x ! ! ! Bowel ! x ! ! ! Kidneys ! ! x ! !Left renal pelvis measures 1.04cm Right renal pelvis measures 0.87 cm Bladder ! x ! ! ! CLINICAL SUMMARY Study Number: 3 A single fetus is identified in cephalic presentation. The measurements today are consistent with excessive size for the CHAD provided. The CHAD selected is based on a prior ultrasound examination. The amniotic fluid volume is polyhydramnios. The placenta is anterior. No additional major malformations are seen within the limitations of ultrasound examination. The patient was advised that ultrasound does not allow detection of all structural or chromosomal abnormalities. TESTING: The Biophysical profile score is 10/10. The NST is reactive without decelerations. IMPRESSION: 1. Single, live, IUP at 35w2d 2. LGA size 3. polyhydramnios amniotic fluid volume 4. anterior placenta 5. Reassuring testing 6. Left hydronephrosis as large as approximately 13.3 to 13.5 mm, mild right hydronephrosis measures approximately 6.0 to 8.7 mm RECOMMEND: Continue testing with weekly NSTs/BPPs. Appointments have been scheduled. Assess growth every 3-4 weeks on ultrasound. Reassess the hydronephrosis at follow up ultrasounds during . Recommend follow up during the period by ultrasound and consult pediatric nephrology as clinically indicated. Discussed with the patient the need for weekly testing due to polyhydramnios and patient requested to have her testing done here at the [facility] office in [place]. Thank you for allowing us the opportunity to care for your patient. Avel Candelaria MD <Electronic Signature> 05/06/2018 11:17pm Buffy Yanes MD [facility] ORDERABLES Care Teams Circular Knife Machine Cutter Relationship Specialty Start Date End Date Darren Ortega MD PCP - General 03/06/16
--- OUTSIDE RECORDS SUMMARY | 2024-12-23 18:32 | XMS_ITS | Clinical Summary ---
Author Organization [facility] Address [address], [facility] [address] [place] [address] Phone Care Team Providers Care Senior Electrical Design Engineer Name Role Phone Darren Ortega MD Primary Care Provider [phone] Sudeep Ayala MD Unavailable [phone] Allergies Active Allergy Reactions Criticality Noted Date Comments Lidocaine Rash Medium 04/02/2019 Peanut (Diagnostic) Other (see Comments) 2018 Medications omeprazole (PRILOSEC) 40 MG CAPSULE DELAYED RELEASE TK 1 C PO BID 2 9 Active meclizine (ANTIVERT) 25 MG Tablet TK 1 T PO TID PRF DIZZINESS 0 9 Active lactulose (CHRONULAC) 10 GM/15ML Solution TK 30 ML PO BID 1 9 Active ferrous sulfate 325 (65 Fe) MG Tablet Take 325 mg by mouth. Active ergocalciferol (VITAMIN D) 46568 UNIT Capsule TK 1 C PO Q WEEK 2 9 Active Vit-Fe Fumarate-FA ( MULTIVITAMIN) 28-0.8 MG Tablet Take 1 Tab by mouth. Active ondansetron (ZOFRAN) 4 MG Tablet TK 1 T PO Q 6 H PRF NAUSEA OR VOM 0 9 Active sertraline (ZOLOFT) 25 MG Tablet Take 25 mg by mouth. Active Levonorgestrel (KYLEENA IU) by Intrauterine route. Active Active Problems Problem Noted Date Diagnosed Date Head and neck cancer 04/02/2019 Coagulopathy 04/02/2019 Family History Medical History Relation Name Comments Asthma Brother Hypertension Brother Cancer Father Congestive Heart Failure Mother Cancer Sister Relation Name Status Comments Brother Father Mother Sister Social History Tobacco Use Types Packs/Day Years Used Date Smoking Tobacco: Never Smokeless Tobacco: Never Alcohol Use Standard Drinks/Week Comments Not Currently 0 (1 standard drink = 0.6 oz pur e alcohol) PHQ-2 Answer Date Recorded PHQ-2 Score 1 07/14/2019 Comments Unknown Sex and Gender Information Value Date Recorded Sex Assigned at Not on file Legal Sex Female 1:10 PM METAL PATTERN MAKER Gender Identity Not on file Sexual Orientation Not on file Last Filed Vital Signs Vital Sign Reading Time Taken Comments Blood Pressure 138/78 04/02/2019 2:42 PM CDT Pulse 71 04/02/2019 2:42 PM CDT Temperature 36.6 C (97.8 F) 04/02/2019 2:42 PM CDT Respiratory Rate 18 04/02/2019 2:42 PM CDT Oxygen Saturation 98% 04/02/2019 2:42 PM CDT Inhaled Oxygen Concentration - - Weight 141.5 kg (312 lb) 04/02/2019 2:42 PM CDT Height 165.1 cm (5' 5 ) 04/02/2019 2:42 PM CDT Body Mass Index 51.92 04/02/2019 2:42 PM CDT Plan of Treatment Health Maintenance Due Date Last Done Comments Hepatitis C Virus (HCV) Screening 1985 TdaP Immunization 1985 SARS-COV-2 Immunization (#1) 1991 Pneumococcal Immunization Co mbined (1 of 2 - PCV) 2005 Pap Smear 2007 Hepatitis B Immunization (2 of 3 - 19+ 3-dose series) 09/10/2014 08/13/2014 Cervical Cancer Screening (CCS) 2016 HPV/Cotest 2016 Influenza Immunization (#1) 2024 Respiratory Syncytial Virus (RSV) Immunization (Adult) (1 - 1-dose 75+ series) 2061 Meningococcal Immunization (ACWY) Aged Out No longer eligible based on patient's age to complete this topic Rotavirus Immunization Aged Out No lo nger eligible based on patient's age to complete this topic Insurance MEDICAID [facility] PL[facility] Care Teams Senior Electrical Design Engineer Relationship Specialty Start Date End Date Darren Ortega MD [address] [facility] [place] [address] PCP - General Internal Medicine 04/02/19 Sudeep Ayala MD [address] [place] [id number] Consulting Physician Oncology 04/02/19
--- OUTSIDE RECORDS SUMMARY | 2024-12-23 18:32 | XMS_ITS ---
Author Organization [facility] [address] Address [address] [place] [address] Care Team Providers Care Trust Manager Name Role Phone José Mishra MD Unavailable [phone] Eddie Tobin MD Unavailable Bib Kramer MD Primary Care Provider [phone] Aden Amato MD Unavailable [phone] Active Problems Problem Noted Date Diagnosed Date Renal stone 04/09/2024 Calculus of upper urinary tract 04/06/2024 Hydronephrosis with urinary obstruction due to ureteral calculus 04/06/2024 Overview (04/06/2024): Proximal R ureter, 6.5 mm stone Peanut allergy 04/06/2024 Complicated UTI (urinary tract infection) 2023 Hx of gastric bypass 04/06/2024 Iron deficiency anemia 07/25/2022 Acute hypokalemia 04/30/2021 Oropharyngeal carcinoma 12/25/2018 Epigastric abdominal pain AGE (acute gastroenteritis) Current Treatment and Therapy Plans No current plan information found. Other Current Plans IV MAINTENANCE THERAPY PLAN* Plan Start Date:08/03/2022 Plan Provider:Eddie Tobin MD Linked Problems Iron deficiency anemia, unsp ecified iron deficiency anemia type Treatment Medications No medications scheduled. Past Treatment and Therapy Plans Lifetime Dose Tracking * Chemical Lifetime Dose Automatic Entry Manual Entr y Fluoro Time 0.222 minutes 0.222 minutes 0 minutes Air kerma at the reference point (Ka,r) 2.14 mGy 2 .14 mGy 0 mGy DLP 873 mGycm 873 mGycm 0 mGycm
--- OUTSIDE RECORDS SUMMARY | 2024-12-23 18:32 | XMS_ITS | Clinical Summary ---
Author Organization [facility] [employer] Address [address] [facility] [address] [place] [address] Care Team Providers Care Computer Forensics Technician Name Role Phone Darren Ortega MD Primary Care Provider [phone] Source Comments [facility] [employer],non-owned Affiliates and Associated Physician Practices is amultiple site organization consisting of ambulatory clinics and hospital sitesin [place], [place], [place]. This disclosure is being madepursuant to the Care Everywhere program and may not contain all informatio navailable regarding this patient. Last updated 18.[facility] [employer] Allergies Active Allergy Reactions Criticality Noted Date Comments Adhesive Sensitivity Rash Medium 03/25/2018 Lidocaine Rash High Swelling Peanut-Derived Swelling Medications * Be aware that medications may not be up to date on this document. Alwaysverify current medications with the patient. Medication Sig Dispensed Refills Start Date End Date Status vitamin D, ergocalciferol, (DRISDOL) 1.25 MG (29970 UT) capsule Take 50,000 Units by mouth [...] Angulo was screened for depression using the [place] Depression Scale (EPDS) at her [facility] initial evaluation on 04/07/2018. Her initial score at baseline was 12. Based off of her score of 12, Su will receive follow up call from [facility] licensed master social worker Jayda Oakes within the week. Patient will [...] from the original note were not included. [facility] PATIENT--PLEASE CALL [phone] (ex 2) IF TRIAGED OR ADMITTED Care Provider: Dr. Marisel Brooks [facility] Care [place] consultants involved: RN-Dio/Paco; Lauren-Geoff; Urology- Shante Diagnosis: [...] by calling Dariana Doherty, clinical nurse, at [phone] Ok to circumcise male infant with normal urethral meatus Switchboard Wirer: Dr. Aguirre Planned surveillance: Repeat US at [address] [facility] Delivery location, mode, and GA: TBD, hx at term Autopsy indicated: Genetics note: Prescription Eyeglass Maker Concerns: 04/07/18- Patient with mental health history, [...] ent 12+ yr 0.3mL Purple cap 04/07/2021,03/17/2021 Family History Medical History Relation Name Comments Asthma Brother Cancer - Lung Father CAD (Coronary Artery Disease) Maternal Grandmother Diabetes - Gestational Maternal Grandmother CAD (Coronary Artery Disease) Mother COPD - Chronic Obstructive Pulmonary Disease Mother CVA Paternal Grandfather Cancer - Ovarian Sister Relation Name Status Comments Brother Alive Father Maternal Grandfather Maternal Grandmother Mother Alive Paternal Grandfather Paternal Grandmother Sister Alive Social History Tobacco Use Types Packs/Day Years [...] Mass Index 47.94 07/29/2020 12:32 PM CDT Plan of Treatment Health Maintenance Due Date Last Done Comments PAP SMEAR 1986 HIV SCREENING 2001 HEPATITIS C SCREENING 04/08/2004 DTAP/TDAP/TD VACCINES (1 - Tdap) 2005 HEPATITIS B VACCINE (1 of 3 - 19+ 3-dose series) 2005 COVID-19 VACCINE (4 - 2023-2 5 season) 2024 05/11/2022, 04/07/2021, 03/17/2021 INFLUENZA VACCINE (#1) 2024 DEPRESSION SCREENING 10/28/2024 ZOSTER VACCINE (1 of 2) 2036 HIB VACCINE Aged Out No longer eligi ble based on patient's age to complete this topic HPV VACCINE Aged Out No longer eligi ble based on patient's age to complete this topic MENINGOCOCCAL (Group B) VACCINE Aged Out No longer eligible b ased on patient's age to complete this topic MENINGOCOCCAL VACCINE Aged Out No erickson sheyla eligible based on patient's age to complete this topic PNEUMOCOCCAL VACCINE Aged Out No long er eligible based on patient's age to complete this topic Advance Directives * Full Code (Latest Code Status on File) Date Activated Date Inactivated Comments 06/29/2020 4:43 PM 06/30/2020 4:48 PM Care Teams Computer Forensics Technician Relationship Specialty Start Date End Date Darren Ortega MD PCP - General 03/06/16
--- OUTSIDE RECORDS SUMMARY | 2024-12-23 18:32 | XMS_ITS | Continuity of Care Document ---
Author Name HollisterYue Address [address] [place] [address] Organization Unknown Address [address] [place] [address] Medications No known medications Problems No known problems
--- OUTSIDE RECORDS SUMMARY | 2024-12-23 18:32 | XMS_ITS | Continuity of Care Document ---
Author Name AnaYue Address [address] [place], [place] [id number] [place] [address] Organization Unknown Address [address] [place] [address] Medications No known medications Problems No known problems
--- OUTSIDE RECORDS SUMMARY | 2024-12-23 18:33 | XMS_ITS | Clinical Summary ---
Author Organization [facility] Address [address] [place] [address] Care Team Providers Care Agricultural Equipment Sales Manager Name Role Phone Unavailable Primary Care Provider Unavailabl e Social History Tobacco Use Types Packs/Day Years Used Date Smoking Tobacco: Never Comments Unknown Sex and Gender Information Value Date Recorded Sex Assigned at Not on file Legal Sex Female 3:04 AM CDT Gender Identity Not on file Sexual Orientation Not on file Last Filed Vital Signs Vital Sign Reading Time Taken Comments Blood Pressure 100/60 06/16/2013 11:02 AM CDT fo rearm Pulse 87 06/16/2013 11:02 AM CDT Temperature - - Respiratory Rate - - Oxygen Saturation - - Inhaled Oxygen Concentration - - Weight 176 kg (388 lb) 06/16/2013 11:02 AM CDT Height 167.6 cm (5' 6 ) 06/16/2013 11:02 AM CDT Body Mass Index 62.62 06/16/2013 11:02 AM CDT Plan of Treatment Health Maintenance Due Date Last Done Comments Cervical Cancer Screening Pa p Smear (Age 30 to 64) Every 3 Years 1986 Annual Physical 1989 Hepatitis C 2004 DTaP, Tdap and Td Vaccines ( 1 - Tdap) 2005 Hepatitis B Vaccines (1 of 3 - 19+ 3-dose series) 2005 Cervical Cancer Screening Pa p with HPV Testing (Age 30 to 64) Every 5 Years 2016 Cervical Cancer Screening with HPV 2016 COVID-19 Vaccine (2023-2 5 season) 2024 Influenza Adult (#1) 2024 HPV Vaccines Aged Out No longer eligi ble based on patient's age to complete this topic Meningococcal B Vaccine Aged Out No l onger eligible based on patient's age to complete this topic Meningococcal Vaccine Aged Out No erickson sheyla eligible based on patient's age to complete this topic Pneumococcal Vaccine: Pediat rics (0 to 5 Years) and At-Risk Patients (6 to 64 Years) Aged Out No longer eligible b ased on patient's age to complete this topic RSV Immunizations Under 20 Months Aged Out No longer eligible based on patient's age to complete this topic
--- OUTSIDE RECORDS SUMMARY | 2024-12-23 18:33 | XMS_ITS | Referral Summary ---
Author Organization [facility] [address] Address [address] [place] [address] Care Team Providers Care Sales And Training Specialist Name Role Phone José Mishra MD Unavailable [phone] Eddie Tobin MD Unavailable Bib Kramer MD Primary Care Provider [phone] Aden Amato MD Unavailable [phone] Allergies Active Allergy Reactions Criticality Noted Date [...] 12/25/2018 Epigastric abdominal pain AGE (acute gastroenteritis) Social History Tobacco Use Types Packs/Day Years Used Date Smoking Tobacco: Never Smokeless Tobacco: Never Tobacco Cessation:Counseling Given: Not Answered Alcohol Use Standard Drinks/Week Comments Not Currently 0 (1 standard drink = 0.6 oz pur e alcohol) [facility] Utilities Answer Date Recorded In the past 12 months has th e electric, gas, oil, or water company threatened to shut off services in your [...] often do you attend chur ch or alevism services? More than 4 times per year 04/07/2024 Do you belong to any clubs o r organizations such as congregation groups, unions, fraternal or athletic groups, or [...] any time in the past 12 m [facility], were you homeless or living in a nursing home (including now)? No 04/07/2024 Personal Safety Answer Date Recorded Have you ever been in or are you currently in a harmful physical or emotional relationship or is someone making you feel afraid or unsafe? 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 Gender Identity Female 04/07/2024 12:49 PM CDT Sexual Orientation Straight 04/07/2024 12 :49 PM CDT Last Filed Vital Signs Vital Sign Reading [...] 04/15/2024 3:24 PM CDT Plan of Treatment Not on file Medical Devices Explanted Type Area Organizational Development Specialist Device Identifier Shelf Expiration Date Model / Serial / Lot [employer] [id number] 6fr 24cm 145cm Radiopaque Positioner Filiform Flexible Tip - [id number] Implanted:Qty: 1 on 04/07/2024 by Heather Esparza MD at [facility] Explanted:Qty: 1 on 04/28/2024 by Heather Esparza MD at [facility] Right: Ureter [employer] 01/23/2027 [id number] / / [employer] [id number] 6fr 24cm 145cm Radiopaque Positioner Filiform Flexible Tip - [id number] Implanted:Qty: 1 on 04/07/2024 by Heather Esparza MD at [facility] Explanted:Qty: 1 on 04/28/2024 by Heather Esparza MD at [facility] Left: Ureter [employer] 12/10/2026 [id number] / / [employer] [id number] 6fr 24cm 145cm Radiopaque Positioner Filiform Flexible Tip - [id number] Implanted:Qty: 1 on 04/28/2024 by Heather Esparza MD at [facility] Explanted:Qty: 1 on 05/20/2024 by Heather Esparza MD Right: Ureter [employer] [id number] 01/23/2027 [id number] / / [id number] Insurance [facility] [employer] [facility] Address: [address] [place] [address] Advance Directives For more information, please contact: [phone] * Full Code (Latest Code Status on File) Date Activated Date Inactivated Comments 04/06/2024 8:05 PM 04/09/2024 5:19 PM * Full Code Date Activated Date Inactivated Comments 04/30/2021 7:57 PM 05/03/2021 6:08 PM Care Teams Sales And Training Specialist Relationship Specialty Start Date End Date Bib Kramer MD [address] [place] [id number] PCP - General Emergency Medicine 04/06/24 José Mishra MD Radiation Oncologist Radiation Oncology 06/28/22 Eddie Tobin MD Medical Oncologist/Clinical Project Coordinator Medical Oncology 07/18/22 Aden Amato MD [address] [facility] [address] [address] Medical Oncologist/Clinical Project Coordinator Hematology and Oncology 04/15/24
[2024-12-23 18:37] LABS: Opiate Screen Urine Negative (Negative)
[2024-12-23 18:42] LABS: Influenza A QL RT-PCR Negative (Negative); Influenza B QL RT-PCR Negative (Negative); RSV RNA, RT-PCR Negative (Negative); SARS-CoV-2 RNA PCR Negative (Negative)
[2024-12-23 19:16] VITALS: BP 101/75; PULSE 81; RESP 16; O2SAT 100
[2024-12-23] MEDS: POTASSIUM CHLORIDE 20 MEQ ER TABLET 40 MEQ PO (19:18)
[2024-12-23] MEDS: KCL 20 MEQ/SW 100 ML 100 ML 50 MEQ IVPB (19:19)
[2024-12-23] MEDS: SODIUM CHLORIDE 0.9% IV 500 ML 50 ML (19:21)
--- NOTE | 2024-12-23 21:23 | PC.NURSE ---
went to room to draw pt's repeat BMP. per Marjorie LEAL, will wait until potassium IV is done running.
[2024-12-23 22:01] VITALS: BP 161/91; PULSE 96; RESP 14; O2SAT 100
--- NOTE | 2024-12-23 22:02 | PC.NURSE ---
attempted x2 to obtain the repeat BMP and was unsuccessful. Marjorie LEAL notified and will attempt to draw.
--- NOTE | 2024-12-23 22:20 | PC.NURSE ---
NEDA Lozano and this RN attempted to draw BMP x2 each with no success. You RN to bedside to attempt. Pt. states she is usually a very difficult stick.
[2024-12-23 22:43] LABS: Anion Gap 13 mmol/L (4-12); Blood Urea Nitrogen 10 mg/dL (7-17); Carbon Dioxide 24 mmol/L (22-30); Chloride 105 mmol/L (98-107); Estimated CRCL calculation 199 ml/min; Estimated Glomerular Filt Rate > 60; Glucose 92 mg/dL (65-110); Potassium 3.2 mmol/L (3.4-5.0); Sodium 142 mmol/L (137-145)
[2024-12-24 00:34] VITALS: BP 162/98; PULSE 104; RESP 20; O2SAT 99
[2024-12-24] MEDS: PANTOPRAZOLE 40 MG TABLET PO (01:16)
--- NOTE | 2024-12-24 01:19 | PC.NURSE ---
Patient medicated as per MAR with omeprazole for heartburn. Awaiting crisis eval.
--- NOTE | 2024-12-24 02:46 | PC.NURSE ---
Crisis remains at bedside.
== END 2024-12-24 03:23 | disposition home or self-care (01) ==
PROVIDERS: Emergency Provider Physician Assistant; PCP Emergency Medicine
DX: F41.8 Other specified anxiety disorders (principal); I10 Essential (primary) hypertension; Z85.9 Personal history of malignant neoplasm, unspecified; Z11.59 Encounter for screening for other viral diseases
CPT/HCPCS: 36415; 80048; 80053; 80307; 81001; 82077; 84443; 85025; 87086; 87186; 87637; 93005; 96365; 96366; 96367; 99284; A9270; J0696; J3480; J7040

== ENCOUNTER 2025-06-28 12:22 | Emergency (ER) | payer BC, MEDICAID, SELFPAY ==
[2025-06-28 12:23] VITALS: BP 170/106; PULSE 86; RESP 20; TEMP 36.9; O2SAT 100
--- NOTE | 2025-06-28 12:34 | PC.NURSE ---
SPOKE WITH PHARMACIST AT [facility] WHO STATES THAT TOXIC LEVEL WOULD BE 10MG/KG WITH MAX OF 700MG OF BENADRYL. RECOMMENDED TO OBSERVE FOR SYMPTOMATIC C/O AND SCREEN FOR SELF HARM PRIOR TO DISCHARGE.
--- NOTE | 2025-06-28 13:43 | ED_ITS ---
HPI - General Adult General Chief complaint: Unspecified Stated complaint: tired Time Seen by Provider: 06/28/25 12:23 History of Present Illness HPI narrative: Patient is a 40-year-old female who presents to the ER with fatigue and dizziness. She thinks she took too much Benadryl. She has been having seasonal allergy issues. She took 50 mg of Benadryl at 8:00 a.m. and then 75 mg at 10:00 a.m.. She became lightheaded and dizzy. No chest pain chest pressure. No suicide attempt and no depression/SI. Related Data Home Medications ?Medication ?Instructions ?Recorded ?Confirmed ?Last Taken ?Type omeprazole 40 mg capsule,delayed 40 mg PO DAILY 07/12/24 11/06/21 History release sertraline 50 mg tablet 50 mg PO DAILY 12/18/1906/2811/06/21 History lurasidone 40 mg tablet 40 mg PO DAILY 12/27/2306/28 Unknown History sertraline 25 mg tablet 25 mg PO DAILY 12/27/2306/28 Unknown History Allergies Allergy/AdvReac Type Severity Reaction Status Date / Time peanut Allergy Severe RASH, Verified 12/23/24 17:00 THROAT SWELLING adhesive AdvReac Intermediate RASH/ Verified 12/23/24 17:00 BLISTERS lidocaine AdvReac Intermediate Rash Verified 12/23/24 17:00 Review of Systems 2 Review of Systems: All systems reviewed & are unremarkable except as noted in HPI and below Constitutional: Constitutional: Reports no additional constitutional complaints ENT: Reports system reviewed and no additional complaints, except as documented Cardiovascular: Cardiovascular: Reports no additional cardiovascular complaints Respiratory: Respiratory: Reports no additional respiratory complaints Gastrointestinal: Gastrointestinal: Reports no additional gastrointestinal complaints Neurologic: Reports system reviewed and no additional complaints, except as documented PMF Past Medical History Medical History Anxiety Depression Distal radius fracture, right History of gastroesophageal reflux (GERD) Hypertension 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 PONV (postoperative nausea and vomiting) Wears glasses Surgical History Surgical History History of left salpingo-oophorectomy History of sleeve gastrectomy Family History Family History Mother Family history of thyroid disease Family history of chronic obstructive pulmonary disease Sibling Hypertension Asthma Family history of arthritis Family history of malignant neoplasm of uterus Father Family history of lung cancer Other Diabetes mellitus Distal radius fracture, right Family history of allergic disorder Family history of cardiovascular disease Social History Social History Alcohol intake: current Substance use: never Substance use type: does not use Living arrangements: with family Additional living arrangements comments: CHILDREN Spiritual care concerns: No Exam 2 Narrative: GENERAL: Well-appearing, morbidly obese, and in no acute distress. HEAD: Normocephalic, atraumatic. ENT: Mucous membranes moist. CHEST: Clear to auscultation. No respiratory distress. HEART: Regular rate and rhythm. Normal peripheral pulses. ABDOMEN: Soft, nontender, nondistended. EXTREMITIES: Normal range of motion. No edema. SKIN: Warm, dry, no rash. NEURO: Alert and oriented x3. PSYCH: Normal mood and affect. Course Course Emergency Course: Poison control contacted, this is an on for toxic ingestion. Educated on lab results. Discharge with oral antibiotics. Vital Signs Vital signs: Vital Signs Temperature 98.5 F 06/28/25 12:23 Pulse Rate 86 06/28/25 12:23 Respiratory Rate 06/28/25 12:23 Blood Pressure 170/106 H 06/28/25 12:23 Pulse Oximetry 100 06/28/25 12:23 Oxygen Delivery Room Air 06/28/25 12:23 Temperature 98.5 F 06/28/25 12:23 Pulse Rate 77 06/28/25 14:45 Respiratory Rate 06/28/25 14:45 Blood Pressure 164/102 H 06/28/25 14:45 Pulse Oximetry 100 06/28/25 14:45 Oxygen Delivery Room Air 06/28/25 12:23 Medical Decision Making Vital Signs Vital Signs: Vital Signs Temperature 98.5 F 06/28/25 12:23 Pulse Rate 86 06/28/25 12:23 Respiratory Rate 06/28/25 12:23 Blood Pressure 170/106 H 06/28/25 12:23 Pulse Oximetry 100 06/28/25 12:23 Oxygen Delivery Room Air 06/28/25 12:23 Temperature 98.5 F 06/28/25 12:23 Pulse Rate 77 06/28/25 14:45 Respiratory Rate 20 06/28/25 14:45 Blood Pressure 164/102 H 06/28/25 14:45 Pulse Oximetry 100 06/28/25 14:45 Oxygen Delivery Room Air 06/28/25 12:23 Lab Data 06/28/25 13:50 06/28/25 13:50 Labs: Lab Results 06/28/25 06/28/25 06/28/25 Range/Units 13:01 13:50 14:55 WBC 3.5 L (4.5-10.0) K/mm3 RBC 3.88 L (4.2-5.4) M/mm3 Hgb 10.1 L (12.0-15.0) g/dL Hct 33.5 L (37.0-47.0) % MCV 86.3 (80-100) fl MCH 26.0 (26-34) pg MCHC 30.1 L (32-36) g/dl RDW 21.8 H (11.5-14.5) % Plt Count 183 (150-375) k/mm3 MPV 11.0 H (7.4-10.4) fl Immature Gran % (Auto) 0.6 H (0-0.5) % Neut % (Auto) 45.6 (45.5-73.1) % Lymph % (Auto) 39.8 (18.3-44.2) % [place] % (Auto) 7.2 (2.6-8.5) % Eos % (Auto) 5.7 H (0-4.4) % Baso % (Auto) 1.1 (0.2-1.2) % Lymph # (Auto) 1.39 (0.9-3.2) K/mm3 [place] # (Auto) 0.3 (0.1-0.6) K/mm3 Eos # (Auto) 0.2 (0-0.3) K/mm3 Baso # (Auto) 0.0 (0.0-0.1) K/mm3 Abs Immat Gran (auto) 0.02 (0.00-0.031) K/mm3 Absolute Neuts (auto) 1.6 (1.3-6.7) K/mm3 Absolute Nucleated RBC 0.000 (0.0-0.012) K/mm3 Nucleated RBC % 0.0 (0.0-0.2) % Sodium 138 (137-145) mmol/L Potassium 3.0 L (3.4-5.0) mmol/L Chloride 105 (98-107) mmol/L Carbon Dioxide 25 (22-30) mmol/L Anion Gap 8 (4-12) mmol/L BUN 7 (7-17) mg/dL Creatinine 0.48 L (0.7-1.0) mg/dL Estim Creat Clear Calc 182 ml/min Estimated GFR > 60 (59 - ) Glucose 77 (65-110) mg/dL Calcium 8.8 (8.4-10.2) mg/dL Total Bilirubin 0.4 (0.2-1.3) mg/dL AST 47 H (14-36) U/L ALT 22 (6-35) U/L Alkaline Phosphatase 114 (38-126) U/L Total Protein 7.3 (6.3-8.2) g/dL Albumin 4.0 (3.5-5.1) g/dL TSH (Reflex) 2.340 (0.465-4.68) uIU/mL Urine Color Yellow (Yellow) Urine Appearance Cloudy H (Clear) Urine pH 6.5 (5.0-9.0) Ur Specific [place] 1.020 (1.001-1.035) Urine Protein Negative (Negative) mg/dL Urine Glucose (UA) Negative (Negative) mg/dL Urine Ketones Negative (Negative) mg/dL Ur Blood (Man) Negative (Negative) Urine Nitrate Positive H (Negative) Urine Bilirubin Negative (Negative) Urine Urobilinogen 0.2 (<2.0) mg/dL Leukocyte Esterase Rfl 1+ H (Negative) BLAIR/UL Urine RBC 0-2 (0-2) /hpf Urine WBC 21-50 H (0-3) /hpf Ur Squamous Epith Cells Few (Few) /hpf Urine Bacteria 4+ H /hpf Urine Casts 0-2 Urine Opiates Screen Negative (Negative) Urine Methadone Screen Negative (Negative) Ur Barbiturates Screen Negative (Negative) Ur Phencyclidine Scrn Negative (Negative) Ur Amphetamine Screen Negative (Negative) U Benzodiazepines Scrn Negative (Negative) Urine Cocaine Screen Negative (Negative) U Cannabinoids Screen Negative (Negative) Ethyl Alcohol < 10 (<10) mg/dL Influenza A (RT-PCR) Negative (Negative) Influenza B (RT-PCR) Negative (Negative) RSV (RT-PCR) Negative (Negative) SARS-CoV-2 RNA (RT-PCR) Negative (Negative) Discharge Plan Discharge Clinical Impression: Dizziness, UTI (urinary tract infection) Patient Disposition: Home Condition: Stable Instructions: Antibiotic Form, Urinary Tract Infection in Women (ED) Additional Instructions: You should return to the emergency department if you develop severe nausea and vomiting and are unable to keep liquids down, if you develop severe back/flank or stomach pain, or if your symptoms are not clearly improving at home. Patient Language: Micronesian Prescriptions: New cephalexin 500 mg capsule 500 mg PO Q12H Qty: 14 0RF No Action omeprazole 40 mg capsule,delayed release(DR/EC) 40 mg PO DAILY sertraline 50 mg tablet 50 mg PO DAILY sertraline 25 mg tablet 25 mg PO DAILY lurasidone 40 mg tablet 40 mg PO DAILY benzonatate 150 mg capsule 150 mg PO TID PRN (Reason: cough) Qty: 30 0RF prednisone 50 mg tablet 50 mg PO DAILY Qty: 5 0RF potassium chloride 20 mEq tablet extended release 20 meq PO DAILY Qty: 7 0RF famotidine 20 mg tablet 20 mg PO DAILY Qty: 30 0RF dicyclomine 20 mg tablet 20 mg PO TID PRN (Reason: abdominal pain) Qty: 30 0RF alum-mag hydroxide-simeth [Maalox Advanced] 200-200-20 mg/5 mL suspension 10 ml PO QID PRN (Reason: dyspepsia) Qty: 300 0RF Rx Instructions: administer between meals and at bedtime ondansetron 4 mg tablet,disintegrating 4 mg PO Q8H PRN (Reason: nausea and vomiting) Qty: 10 0RF Follow-up/Referrals: Bib Kramer MD [Primary Care Provider, Family Practice] - 1 Week
[2025-06-28 13:49] LABS: Influenza A QL RT-PCR Negative (Negative); Influenza B QL RT-PCR Negative (Negative); RSV RNA, RT-PCR Negative (Negative); SARS-CoV-2 RNA PCR Negative (Negative)
[2025-06-28] MEDS: SODIUM CHLORIDE 0.9% IV 1,000 ML 999 ML IV CONT (13:50)
[2025-06-28 14:01] VITALS: BP 160/108; PULSE 81; RESP 19; O2SAT 100
[2025-06-28 14:02] LABS: Hematocrit 33.5 % (37.0-47.0); Hemoglobin 10.1 g/dL (12.0-15.0); Immature Granulocyte Percent A 0.6 % (0-0.5); Lymphocytes Absolute Auto 1.39 K/mm3 (0.9-3.2); Mean Corpuscular HGB Conc 30.1 g/dl (32-36); Mean Corpuscular Hemoglobin 26.0 pg (26-34); Mean Corpuscular Volume 86.3 fl (80-100); Nucleated Red Blood Cells Absolute Auto 0.000 K/mm3 (0.0-0.012); Nucleated Red Blood Cells Perc 0.0 % (0.0-0.2); Platelet Count Result 183 k/mm3 (150-375); Red Blood Count 3.88 M/mm3 (4.2-5.4); White Blood Count 3.5 K/mm3 (4.5-10.0)
[2025-06-28 14:21] LABS: Alanine Aminotransferase 22 U/L (6-35); Albumin Level 4.0 g/dL (3.5-5.1); Alkaline Phosphatase 114 U/L (38-126); Anion Gap 8 mmol/L (4-12); Aspartate Amino Transferase 47 U/L (14-36); Bilirubin,Total 0.4 mg/dL (0.2-1.3); Blood Urea Nitrogen 7 mg/dL (7-17); Calcium 8.8 mg/dL (8.4-10.2); Carbon Dioxide 25 mmol/L (22-30); Chloride 105 mmol/L (98-107); Estimated CRCL calculation 182 ml/min; Estimated Glomerular Filt Rate > 60; Glucose 77 mg/dL (65-110); Potassium 3.0 mmol/L (3.4-5.0); Sodium 138 mmol/L (137-145); Total Protein 7.3 g/dL (6.3-8.2)
[2025-06-28 14:44] LABS: Thyroid Stimulating Hormone Reflex 2.340 uIU/mL (0.465-4.68)
[2025-06-28 14:45] VITALS: BP 164/102; PULSE 77; RESP 20; O2SAT 100
[2025-06-28 15:07] LABS: Add Urine Microscopic? YES; Appearance Urine Cloudy (Clear); Glucose Urine UA Negative (Negative); Leukocyte Esterase Ur 1+ LEU/UL (Negative); Nitrate Urine Positive (Negative); Non Pathogenic Casts 0-2; Specific Grav Ur 1.020 (1.001-1.035)
[2025-06-28 15:26] LABS: Cannabinoid Screen Urine Negative (Negative)
[2025-06-28] MEDS: POTASSIUM CHLORIDE 20 MEQ ER TABLET 40 MEQ PO (15:50)
[2025-06-28 15:54] VITALS: BP 156/108; PULSE 84; RESP 13; O2SAT 100
[2025-06-28 16:37] VITALS: BP 161/92; PULSE 79; RESP 19; O2SAT 100
== END 2025-06-28 16:39 | disposition home or self-care (01) ==
PROVIDERS: Emergency Provider Emergency Medicine; PCP Emergency Medicine
DX: R42 Dizziness and giddiness (principal); N39.0 Urinary tract infection, site not specified; Z20.822 Contact with and (suspected) exposure to COVID-19; F41.9 Anxiety disorder, unspecified; F32.A Depression, unspecified; K21.9 Gastro-esophageal reflux disease without esophagitis; I10 Essential (primary) hypertension
CPT/HCPCS: 36415; 80053; 80307; 81001; 82077; 84443; 85025; 87086; 87186; 87637; 96360; 99283; A9270; J7030

== ENCOUNTER 2025-09-19 09:53 | Emergency (ER) | payer MEDICAID, SELFPAY ==
--- OUTSIDE RECORDS SUMMARY | 2025-09-19 09:55 | XMS_ITS | Clinical Summary ---
Author Organization [facility] [employer] Address [address] [place] [address] Care Team Providers Care Specialty Department Supervisor Name Role Phone Darren Ortega MD Primary Care Provider [phone] Source Comments [facility] [employer],non-owned Affiliates and Associated Physician Practices is amultiple site organization consisting of ambulatory clinics and hospital sitesin [place], [place], [place] and [place]. This disclosure is being madepursuant to the Care Everywhere program and may not contain all information available regarding this patient. Last updated 18.[facility] [employer] Allergies Active Allergy Reactions Criticality Noted Date Comments Adhesive Sensitivity Rash Medium 03/25/2018 Lidocaine Rash High Swelling Peanut-Derived Swelling Medications * Be aware that medications may not be up to date on this document. Alwaysverify current medications with the patient. vitamin D, ergocalciferol, (DRISDOL) 1.25 MG (69296 UT) capsule Take 50,000 Units by mouth [...] Angulo was screened for depression using the [place] Depression Scale (EPDS) at her [facility] initial evaluation on 04/07/2018. Her initial score at baseline was 12. Based off of her score of 12, Su will receive follow up call from [facility] social work administrator Jayda Oakes within the week. Patient will [...] from the original note were not included. [facility] PATIENT--PLEASE CALL [phone] (ex 2) IF TRIAGED OR ADMITTED Care Provider: Dr. Marisel Brooks [facility] Care [place] consultants involved: RN-Dio/Paco; Lauren-Geoff; Urology- Shante Diagnosis: [...] by calling Dariana Doherty, clinical nurse, at [phone] Ok to circumcise male with normal urethral meatus Recruiter Manager: Dr. 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 Gender Identity Not on file Sexual Orientation [...] 12:32 PM CDT Height 167.6 cm (5' 6) 07/29/2020 12:32 PM CDT Body Mass Index 47.94 07/29/2020 12:32 PM CDT Plan of Treatment Health Maintenance Due Date Last Done Comments HIV SCREENING 2001 HEPATITIS C SCREENING 04/08/2004 DTAP/TDAP/TD VACCINES (1 - Tdap) 2005 HEPATITIS B VACCINE (1 of 3 - 19+ 3-dose series) 2005 Cervical Cancer Screening 2007 PAP SMEAR 2007 HPV VACCINE (1 - 3-dose SCDM series) 2013 PAP with HPV 2016 DEPRESSION SCREENING 10/28/2024 COVID-19 VACCINE (4 - 2024-2 6 season) 2025 05/11/2022, 04/07/2021, 03/17/2021 INFLUENZA VACCINE (#1) 2025 ZOSTER VACCINE (1 of 2) 2036 HIB VACCINE Aged Out No longer eligi ble based on patient's age to complete this topic MENINGOCOCCAL (Group B) VACCINE SHARED DECISION-MAKING Aged Out No longer eligible based on patient's age to complete this topic MENINGOCOCCAL GROUPS A/C/Y/W VACCINE Aged Out No longer eligible b ased on patient's age to complete this topic PNEUMOCOCCAL VACCINE Aged Out No long er eligible based on patient's age to complete this topic Advance Directives * Full Code (Latest Code Status on File) Date Activated Date Inactivated Comments 06/29/2020 4:43 PM 06/30/2020 4:48 PM Care Teams Specialty Department Supervisor Relationship Specialty Start Date End Date Darren Ortega MD PCP - General 03/06/16
--- OUTSIDE RECORDS SUMMARY | 2025-09-19 09:55 | XMS_ITS | Clinical Summary ---
Author Organization [facility] Address [address], [facility] [address] [place] [address] Phone Care Team Providers Care Rad Tech Name Role Phone Darren Ortega MD Primary Care Provider [phone] Sudeep Ayala MD Unavailable [phone] Allergies Active Allergy Reactions Criticality Noted Date [...] mg by mouth. 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 Gender Identity Not on file Sexual Orientation [...] 2:42 PM CDT Height 165.1 cm (5' 5) 04/02/2019 2:42 PM CDT Body Mass Index 51.92 04/02/2019 2:42 PM CDT Plan of Treatment Health Maintenance Due Date Last Done Comments Hepatitis C Virus (HCV) Screening 1986 TdaP Immunization 1986 SARS-COV-2 Immunization (#1) 1991 Varicella Immunization (1 of 2 - 13+ 2-dose series) 1999 Pneumococcal Immunization Co mbined (1 of 2 - PCV) 2005 Pap Smear 2007 Human Papillomavirus (HPV) Immunization (1 - Risk 3-dose SCDM series) 2013 Hepatitis B Immunization (2 of 3 - 19+ 3-dose series) 09/10/2014 08/13/2014 Cervical Cancer Screening (CCS) 2016 HPV/Cotest 2016 Influenza Immunization (#1) 2025 Respiratory Syncytial Virus (RSV) Immunization (Adult) (1 - 1-dose 75+ series) 2061 Meningococcal Immunization (ACWY) Aged Out No longer eligible based on patient's age to complete this topic Rotavirus Immunization Aged Out No lo nger eligible based on patient's age to complete this topic Insurance MEDICAID [employer] Care Teams Rad Tech Relationship Specialty Start Date End Date Darren Ortega MD [address] [place] [address] PCP - General Internal Medicine 04/02/19 Sudeep Ayala MD [address] [place] [id number] Consulting Physician Oncology 04/02/19
--- OUTSIDE RECORDS SUMMARY | 2025-09-19 09:56 | XMS_ITS | Clinical Summary ---
Author Organization [facility] Address [address] [place] [address] Care Team Providers Care Pulp Mill Team Leader Name Role Phone Unavailable Primary Care Provider [...] 11:02 AM CDT Height 167.6 cm (5' 6) 06/16/2013 11:02 AM CDT Body Mass Index 62.62 06/16/2013 11:02 AM CDT Plan of Treatment Health Maintenance Due Date Last Done Comments Cervical Cancer Screening Pa p Smear (Age 30 to 64) Every 3 Years 1986 Annual Physical 1989 Hepatitis C 2004 DTaP, Tdap and Td Vaccines ( 1 - Tdap) 2005 Hepatitis B Vaccines (1 of 3 - 19+ 3-dose series) 2005 HPV Vaccines (1 - 3-dose SCD M series) 2013 Cervical Cancer Screening Pa p with HPV Testing (Age 30 to 64) Every 5 Years 2016 Cervical Cancer Screening with HPV 2016 COVID-19 Vaccine (2024-2 6 season) 2025 Influenza Adult (#1) 2025 Hepatitis A Vaccines Aged Out No long er eligible based on patient's age to complete this topic Meningococcal B Vaccine Aged Out No l onger eligible based on patient's age to complete this topic Meningococcal Vaccine Aged Out No erickson sheyla eligible based on patient's age to complete this topic Pneumococcal Vaccine: Pediat rics (0 to 5 Years) and At-Risk Patients (6 to 49 Years) Aged Out No longer eligible b ased on patient's age to complete this topic RSV Immunizations Under 20 Months Aged Out No longer eligible based on patient's age to complete this topic
--- OUTSIDE RECORDS SUMMARY | 2025-09-19 09:56 | XMS_ITS ---
Author Organization [facility] [address] Address [address] [place] [address] Care Team Providers Care Malted Milk Masher Name Role Phone José Mishra MD Unavailable [phone] Eddie Tobin MD Unavailable [phone] Bib Kramer MD Primary Care Provider [phone] Aden Amato MD Unavailable Active Problems Problem Noted Date Diagnosed Date Need for post exposure prophylaxis for rabies Renal stone 04/09/2024 Calculus of upper urinary [...] anemia type Treatment Medications No medications scheduled. Rabies post exposure prophylaxis (IMOVAX) injection* Plan Start Date:08/31/2025 Plan Provider:Adia Morelos PA Linked Problems Need for post exposure proph ylaxis for rabies Treatment Medications No medications scheduled. Past Treatment and Therapy Plans Lifetime Dose Tracking * Chemical Lifetime Dose Automatic Entry Manual Entr y Fluoro Time 0.222 minutes 0.222 minutes 0 minutes Air kerma at the reference point (Ka,r) 2.14 mGy 2 .14 mGy 0 mGy DLP 873 mGycm 873 mGycm 0 mGycm
--- OUTSIDE RECORDS SUMMARY | 2025-09-19 09:56 | XMS_ITS | Clinical Summary ---
Author Organization [facility] Flash chavez [facility] Address [address] [place] [address] Care Team Providers Care Director Of Online Education Name Role Phone Unavailable Primary Care Provider Unavailabl e Social History Tobacco Use Types Packs/Day Years Used Date Smoking Tobacco: Never Assessed Comments Unknown Sex and Gender Information Value Date Recorded Sex Assigned at Not on file Legal Sex Female 11:17 AM CDT Gender Identity Not on file Sexual Orientation Not on file Plan of Treatment Upcoming Encounters Date Type Department Care Team (Late st Contact Info) Description 11/22/2025 1:30 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
--- OUTSIDE RECORDS SUMMARY | 2025-09-19 09:56 | XMS_ITS | Patient Health Record ---
Author Organization [facility] Address [address] [place] [address] Care Team Providers Care Casing Sewer Name Role Phone Juli Rico Primary Care Provider Al Tanner [phone] Allergies No Known Allergies Reason For Referral No Information Medications Medication SIG (Take, Route, Frequency, Duration) Notes Start Date End Date Status Lurasidone HCl 40 MG 1 tablet in the kathryn patrick with food Orally Once a day; Duration: 30 days Active Fluconazole 100 MG 1 tablet. take one t ablet on day one, then take the second tablet 2 days later Orally daily; Duration: 2 days 09/07/2025 Active hydrOXYzine Pamoate 25 MG 1 capsule up t o four times daily as needed Orally daily; Duration: 30 days Active Social History Tobacco Use: Social History Observation Description Date Details (start date - stop date) Never Smoker NA - NA Tobacco Control (Standard) Question Answer Notes Tobacco use: Nonsmoker Additional Findings: Tobacco non-user Current no nsmoker,Tolerant nonsmoker Problems Problem Type SNOMED Code ICD Code Onset Dates Problem Status W/U Status Risk Notes Problem Posttraumatic stress disorder (17232222) PTSD (post-traumati c stress disorder) (F43.10) Active confirmed Problem Anxiety (35217019) Anxiety (F41.9) Active confirmed Problem Overweight (464698966) Over weight (E66.3) Active confirmed Problem Depressed bipolar I disorder (33852756) Bipolar disorder current episode depressed (F31.30) Active confirmed Problem Obsessive-compuls allegra disorder (279388417) OCD (obsessive compulsive disorder) (F42.9) Active confirmed Vital Signs Heart Rate 72 /min 09/07/2025 Temperature 98.3 degrees Fahrenheit 09/07/2025 Respiratory Rate 18 /min 09/07/2025 Oximetry 100 % 09/07/2025 Blood pressure diastolic 78 mm Hg 09/07/2025 Height 66 in 09/07/2025 Blood pressure systolic 120 mm Hg 09/07/2025 Weight 290 lbs 09/07/2025 BMI 46.8 kg/m2 09/07/2025 Encounters Encounter Location Date Provider Diagnosis [facility] [address], [place] [address] 08/11/2025 Juli Jacky Bipolar disorder current episode depressed F31.30 ; OCD (obsessive compulsive disorder) F42.9 ; PTSD (post-traumatic stress disorder) F43.10 and Anxiety F41.9 [facility] [address] [place] [address] 09/07/2025 Al Tanner Allergic reaction to drug, initial encounter T78.40XA ; Vaginal yeast infection B37.31 and Over weight E66.[address] [address] 09/13/2025 Juli Jacky Bipolar disorder current episode depressed F31.30 ; OCD (obsessive compulsive disorder) F42.9 ; PTSD (post-traumatic stress disorder) F43.10 and Anxiety F41.[address] [address] 08/11/2025 Juli Jacky [facility] [address] [place] [address] 08/30/2025 Juli Jacky Bipolar disorder current episode depressed F31.30 and Anxiety F41.9 Assessments Encounter Date Diagnosis (ICD Code) Assessment Notes Treatment Notes Treatment Clinical Notes Section Notes 08/11/2025 Bipolar disorder current episode depressed (ICD-10 - F31.30) Start Latuda. Take as prescribed. Reviewed purpose (mood stability), benefits, and risks - low blood pressure, metabolic syndrome with high cholesterol or high blood sugars, change in cardiac conduction, nausea, vomiting, temporary or permanent movement disorders, and akathisia. For females: explained that no medication can be guaranteed to be 100% safe for baby or mother. Call for problems with medication, side effects or need for dosage change. 08/11/2025 OCD (obsessive compulsive disorder) (ICD-10 - F42.9) 09/07/2025 Allergic reaction to drug, initial encounter (ICD-10 - T78.40XA) Educated patient to go to the ED for further evaluation and workup due to possible reaction to imovax being received due to being bitten by a pitbull in multiple places. The patient is completely understanding and was wanting a second opinion before going to the ED. 09/07/2025 Vaginal yeast infection (ICD-10 - B37.31) 08/30/2025 Bipolar disorder current episode depressed (ICD-10 - F31.30) 09/13/2025 Bipolar disorder current episode depressed (ICD-10 - F31.30) 09/13/2025 OCD (obsessive compulsive disorder) (ICD-10 - F42.9) 09/07/2025 Over weight (ICD-10 - E66.3) 08/30/2025 Anxiety (ICD-10 - F41.9) 08/11/2025 PTSD (post-traumati c stress disorder) (ICD-10 - F43.10) 08/11/2025 Anxiety (ICD-10 - F41.9) Begin hydroxyzine. Take as prescribed. Reviewed purpose (reduce anxiety and/or promote sleep), benefits, and risks - including sedation and dry mouth. Call for problems with medication, side effects or need for dosage change. 09/13/2025 PTSD (post-traumati c stress disorder) (ICD-10 - F43.10) 09/13/2025 Anxiety (ICD-10 - F41.9) May self-administer medications or be administered own oral medications per [facility] protocols. Provided informed consent with understanding of side effects, adverse effects, risks and benefits as well as alternative treatments as previously discussed and with the above recommended medications & other aspects of the treatment program. Agrees to return sooner if symptoms worsen or suicidal or homicidal ideations occur. Unable to complete AIMS due to nature of appt, denies any irregular muscle movements; would benefit from an in person appointment. Medication Hx: - Latuda (worked very well but insurance wouldn't cover anymore) -Zoloft -Trazodone -Hydroxyzine Medication Plan: -Increase Latuda to 40 mg once daily w/ food -Continue Hydroxyzine 25 mg up to 4 times daily PRN *no refill needed -Follow up: 4 weeks [] Hard Rx handed to patient [] Rx phoned into pharmacy [x] Rx faxed/e-prescribed into pharmacy [] PDMP Reviewed [] [facility] Reviewed Encouraged by Juli Rico [facility]- to: [] consider utilizing therapist/counselor/ hospital social worker/psychologist, referral given [] continue with therapist/counselor/ hospital social worker/psychologist Psychoeducation: -Treatment options discussed in detail with patient/guardian verbalizing understanding of treatment rationales. -Side effects and benefits of all medications prescribed discussed at length between psychiatric prescribing provider and patient/guardian along with the risks associated of edee-no-akqd interactions, including but not limited to prescription medications, OTC medications, vitamins, minerals and herbal supplements. -Patient/Guardian and provider dialogue showcased verbalized understanding from patient on rationales of medication risk vs benefits. -Information with neurobiology of presenting neurotransmitter disorder, mood stability, sleep hygiene and 7-8 hours of uninterrupted sleep per night with wakeful and refreshed awakening and day long alertness discussed. -Reduction of stress and anxiety to aid in focus and concentration discussed, again, with patient/guardian physically nodding, voicing understanding, and engaged in treatment plan with Juli Rico [facility]. -Perceiving complete understanding of rationale by patient/guardian and willingness to adhere to formulated plan of care by prescriber with patient/guardian buy-in, willingness to participate actively in plan of care and willing to take charge of own care. -Although geared for female patients, all patients/guardians are informed by prescribing provider of risks of medications that could potentially be taken by female/women within their united [place] of influence and that women who use medicine during have a higher chance of having a baby with defects. -Patient/Guardian denies being and/or knowing of women who are at present and denies wanting to become in the foreseeable future, 0-6 months from now. -Patient/Guardian again informed of the risk of pharmaceutical medications consumed during and how there are potential negative effects on the developing fetus. -Patient/Guardian verbalizes understanding of rationale and physically nods head in agreement that if a should occur, to consult with provider, DURABLE MEDICAL EQUIPMENT REPAIRER and/or Nurse Mathematical Physicist to determine if prescribed medications should or should not be continued. -Instructions regarding both the medical/pharmacologi emil and non-pharmacologic aspects of the treatments employed were given, and the patient/guardian seemed to understand this. Risks and benefits of treatment, and of non-treatment, were also discussed. The patient/guardian understands the more frequent side effects associated with the medications. -The use of psychotherapy was addressed today and will continue on an as needed basis for the foreseeable future. The choice is, of course, ultimately left to the patient/guardian. -Patient/Guardian was encouraged to make a follow-up appointment for the next visit. -Additional treatment was discussed and has been addressed on an ongoing basis within the context of this patient's illness, resources, progress, and other appropriate factors. Being compliant with a regular exercise routine, consistent medication use, ongoing psychotherapy, eating and sleeping well, as well as the importance of handling stress, was discussed. 08/11/2025 Other May self-administer medications or be administered own oral medications per [facility] protocols. Provided informed consent with understanding of side effects, adverse effects, risks and benefits as well as alternative treatments as previously discussed and with the above recommended medications & other aspects of the treatment program. Agrees to return sooner if symptoms worsen or suicidal or homicidal ideations occur. Medication Hx: -Latuda (worked very well but insurance wouldn't cover anymore) -Zoloft -Trazodone -Hydroxyzine Medication Plan: -Start Latuda 20 mg once daily w/ food -Start Hydroxyzine 25 mg up to 4 times daily PRN *reviewed labs in [facility], no acute psych concerns -Follow up: 2 weeks [] Hard Rx handed to patient [] Rx phoned into pharmacy [x] Rx faxed/e-prescribed into pharmacy [x] PDMP Reviewed [] [facility]ight Reviewed Encouraged by Juli Rico [facility]- to: [] consider utilizing therapist/counselor/ hospital social worker/psychologist, referral given [x] continue with therapist/counselor/ hospital social worker/psychologist Psychoeducation: -Treatment options discussed in detail with patient/guardian verbalizing understanding of treatment rationales. -Side effects and benefits of all medications prescribed discussed at length between psychiatric prescribing provider and patient/guardian along with the risks associated of [id number]-vcbv interactions, including but not limited to prescription medications, OTC medications, vitamins, minerals and herbal supplements. -Patient/Guardian and provider dialogue showcased verbalized understanding from patient on rationales of medication risk vs benefits. -Information with neurobiology of presenting neurotransmitter disorder, mood stability, sleep hygiene and 7-8 hours of uninterrupted sleep per night with wakeful and refreshed awakening and day long alertness discussed. -Reduction of stress and anxiety to aid in focus and concentration discussed, again, with patient/guardian physically nodding, voicing understanding, and engaged in treatment plan with Juli Rico [facility]. -Perceiving complete understanding of rationale by patient/guardian and willingness to adhere to formulated plan of care by prescriber with patient/guardian buy-in, willingness to participate actively in plan of care and willing to take charge of own care. -Although geared for female patients, all patients/guardians are informed by prescribing provider of risks of medications that could potentially be taken by female/women within their united [place] of influence and that women who use medicine during have a higher chance of having a baby with defects. -Patient/Guardian denies being and/or knowing of women who are at present and denies wanting to become in the foreseeable future, 0-6 months from now. -Patient/Guardian again informed of the risk of pharmaceutical medications consumed during and how there are potential negative effects on the developing fetus. -Patient/Guardian verbalizes understanding of rationale and physically nods head in agreement that if a should occur, to consult with provider, DURABLE MEDICAL EQUIPMENT REPAIRER and/or Nurse Mathematical Physicist to determine if prescribed medications should or should not be continued. -Instructions regarding both the medical/pharmacologi emil and non-pharmacologic aspects of the treatments employed were given, and the patient/guardian seemed to understand this. Risks and benefits of treatment, and of non-treatment, were also discussed. The patient/guardian understands the more frequent side effects associated with the medications. -The use of psychotherapy was addressed today and will continue on an as needed basis for the foreseeable future. The choice is, of course, ultimately left to the patient/guardian. -Patient/Guardian was encouraged to make a follow-up appointment for the next visit. -Additional treatment was discussed and has been addressed on an ongoing basis within the context of this patient's illness, resources, progress, and other appropriate factors. Being compliant with a regular exercise routine, consistent medication use, ongoing psychotherapy, eating and sleeping well, as well as the importance of handling stress, was discussed. 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
--- OUTSIDE RECORDS SUMMARY | 2025-09-19 09:56 | XMS_ITS | Continuity of Care Document ---
Author Name [facility] Address [address] [place] [address] Organization Unknown Address [address] [place] [address] Medications No known medications Problems No known problems
--- OUTSIDE RECORDS SUMMARY | 2025-09-19 09:56 | XMS_ITS | Clinical Summary ---
Author Organization [facility] [place] [address] Address [address] [place] [address] Care Team Providers Care Railroad Construction Director Name Role Phone José Mishra MD Unavailable [phone] Eddie Tobin MD Unavailable [phone] Bib Kraemr MD Primary Care Provider [phone] Aden Amato MD Unavailable [phone] Allergies Active Allergy Reactions Criticality Noted Date Comments Adhesive Tape-Silicones Rash Medium 03/25/2018 Lidocaine Rash High 04/02/2019 Swelling Peanut Swelling,Other (See comments) High 04/02/2019 And dyspnea Medications ergocalciferol (VITAMIN D) 50,000 unit capsule Take 1 capsule (50,000 Units total) by mouth once a week On Mondays 019 Active lurasidone (LATUDA) 40 mg tablet Take 1 tablet (40 mg total) by mouth daily 024 Active cyanocobalamin (Vitamin B-12) 1,000 mcg/mL injection Inject 1 mL (1,000 mcg total) under the skin every 30 (thirty) days 1 mL 2 024 Active Additional Information Patient not taking.Reported on 09/12/2025 cyanocobalamin (Vitamin B-12) 500 mcg tabletIndications :Prevention of Vitamin B12 Deficiency Take 1 tablet (500 mcg total) by mouth daily 30 tablet 11 Active Additional Information Patient not taking.Reported on 09/12/2025 traMADoL (ULTRAM) 50 mg tablet Take 1 tablet (50 mg total) by mouth every 6 (six) hours as needed for pain for up to 10 days 40 tablet Active Additional Information Patient not taking.Reported on 04/15/2024 HYDROcodone-aceta minophen (NORCO) 5-325 mg per tabletIndications :Pain Take 1 tablet by mouth every 6 (six) hours as needed for pain 10 tablet Active Additional Information Patient not taking.Reported on 09/12/2025 ondansetron ODT (ZOFRAN-ODT) 4 mg disintegrating tablet Take 1 tablet (4 mg total) by mouth every 8 (eight) hours as needed for nausea or vomiting 20 tablet Active Additional Information Patient not taking.Reported on 09/12/2025 phenazopyridine (Pyridium) 100 mg tablet Take 1-2 tablets (100-200 mg total) by mouth 3 (three) times a day as needed for urinary pain 30 tablet 1 Active Additional Information Patient not taking.Reported on 09/12/2025 oxyBUTYnin (DITROPAN) 5 mg tablet Take 1 tablet (5 mg total) by mouth 3 (three) times a day as needed (bladder spasms) 30 tablet 1 Active Additional Information Patient not taking.Reported on 09/12/2025 ketorolac (TORADOL) 10 mg tablet Take 1 tablet (10 mg total) by mouth every 6 (six) hours as needed for pain 20 tablet Active Additional Information Patient not taking.Reported on 09/12/2025 amoxicillin-clavu lanate (AUGMENTIN) 875-125 mg per tablet Take 1 tablet by mouth every 12 (twelve) hours 14 tablet Active Additional Information Patient not taking.Reason: Treatment complete. No longer taking., Reported on 09/12/2025 hydrOXYzine (VISTARIL) 25 mg capsule Take 1 capsule (25 mg total) by mouth 4 (four) times a day as needed Active cyclobenzaprine (FLEXERIL) 10 mg tablet Take 1 tablet (10 mg total) by mouth 2 (two) times a day as needed for muscle spasms 20 tablet Active famotidine (PEPCID) 20 mg tablet Take 1 tablet (20 mg total) by mouth 2 (two) times a day 10 tablet 025 Active diphenhydrAMINE 25 mg capsule Take 1 tablet/capsule (25 mg total) by mouth every 6 (six) hours as needed for itching 20 capsule Active sertraline (ZOLOFT) 25 mg tablet Take 3 tablets (75 mg total) by mouth daily 024 2024 Discontinued(T herapy completed) cyclobenzaprine (FLEXERIL) 10 mg tablet Take 1 tablet (10 mg total) by mouth 2 (two) times a day as needed for muscle spasms 20 tablet 025 2024 Discontinued predniSONE (DELTASONE) 20 mg tablet Take 2 tablets (40 mg) by mouth daily for 5 days 10 tablet 025 2024 Discontinued famotidine (PEPCID) 20 mg tablet Take 1 tablet (20 mg total) by mouth 2 (two) times a day 10 tablet 025 2024 Discontinued diphenhydrAMINE 25 mg capsule Take 1 tablet/capsule (25 mg total) by mouth every 6 (six) hours as needed for itching 20 capsule 025 2024 Discontinued predniSONE (DELTASONE) 20 mg tablet Take 2 tablets (40 mg) by mouth daily for 5 days 10 tablet 025 2024 Active Problems Problem Noted Date Diagnosed Date [...] 12/25/2018 Epigastric abdominal pain AGE (acute gastroenteritis) Encounters Date Type Department Care Team Description 09/12/2025 7:51 AM POLICE CHIEF DEPUTY - 09/12/2025 11:59 PM POLICE CHIEF DEPUTY Hospital Encounter [address] [address] Need for post exposure prophylaxis for rabies (Primary Dx) Discharge Disposition: Discharge to home or self care 09/07/2025 5:39 PM POLICE CHIEF DEPUTY - 09/07/2025 7:48 PM POLICE CHIEF DEPUTY Emergency [address] [address] Generalized body aches (Primary Dx); Allergic reaction, initial encounter Discharge Disposition: Discharge to home or self care 09/07/2025 Orders Only [address] [address] Yue Daigle RN 09/05/2025 8:00 AM POLICE CHIEF DEPUTY - 09/05/2025 11:59 PM POLICE CHIEF DEPUTY Hospital Encounter [address] [address] Need for post exposure prophylaxis for rabies (Primary Dx) Discharge Disposition: Discharge to home or self care 08/31/2025 1:47 PM POLICE CHIEF DEPUTY - 08/31/2025 11:59 PM POLICE CHIEF DEPUTY Hospital Encounter [address] [address] Yue Daigle RN Need for post exposure prophylaxis for rabies (Primary Dx); Dog bite, initial encounter Discharge Disposition: Discharge to home or self care 08/28/2025 7:40 PM CDT - 08/28/2025 9:34 PM CDT Emergency [address] [address] Dog bite, initial encounter (Primary Dx); Need for post exposure prophylaxis for rabies Discharge Disposition: Discharge to home or self care from Last 3 Months Immunizations Immunization Administration Dates Next Due Rabies Immune Globulin 08/28/2025 Rabies Vaccine 09/12/2025,09/05/2025,08/31/2025 ,08/28/2025 Surgical History Surgery Date Site/Laterality Comments URETERAL [...] drink = 0.6 oz pur e alcohol) [facility] Utilities Answer Date Recorded In the past 12 months has th e electric, gas, oil, or water Markr threatened to shut off services in your home? No 04/07/2024 Social Connection and Isolation Panel Answer Date Recorded In a typical week, how many times do you talk on the phone with family, friends, or neighbors? Three times a week 04/07/2024 How often do you get togethe r with friends or relatives? Three times a week 04/07/2024 How often do you attend [facility] center or quaker services? More than 4 times per year [...] any time in the past 12 m [facility], were you homeless or living in a penitentiary (including now)? No 04/07/2024 Personal Safety Answer Date Recorded Have you ever been in or are you currently in a harmful physical or emotional relationship or is someone making you feel afraid or unsafe? Denies 09/07/2025 Comments No Sex and Gender Information Value Date Recorded Sex Assigned at Not on file Legal Sex Female 3:45 AM POLICE CHIEF DEPUTY Gender Identity Female 04/07/2024 12:49 PM CDT Sexual Orientation Straight 04/07/2024 12 :49 PM CDT Last Filed Vital Signs Vital Sign Reading Time Taken Comments Blood Pressure 146/88 09/12/2025 8:12 AM POLICE CHIEF DEPUTY Pulse 64 09/12/2025 8:12 AM POLICE CHIEF DEPUTY Temperature 36.4 C (97.6 F) 09/12/2025 8:12 AM POLICE CHIEF DEPUTY Respiratory Rate 18 09/12/2025 8:12 AM POLICE CHIEF DEPUTY Oxygen Saturation 100% 09/12/2025 8:12 AM POLICE CHIEF DEPUTY Inhaled Oxygen Concentration - - Weight 131.1 kg (289 lb) 09/07/2025 2:44 PM POLICE CHIEF DEPUTY Height 167.6 cm (5' 6) 06/07/2025 4:51 PM CDT Body Mass Index 46.65 06/07/2025 4:51 PM CDT Plan of Treatment Health Maintenance Due Date Last Done Comments Depression Screening 1986 Hepatitis C Screening 1986 Regular Well Visit/Exam 18-64 2004 HPV Vaccines (1 - 3-dose SCD M series) 2013 Covid-19 Vaccine (3 - 2024-2 6 season) 2025 04/07/2021, 03/17/2021 Influenza Vaccine (#1) 2025 8, 09/03/2016 Varicella Vaccines (1 of 2 - 13+ 2-dose series) 12/26/2025 DTaP/Tdap/Td Vaccine (2 - Td or Tdap) 05/24/2032 05/24/2022 Hepatitis B Screening Completed 08/13/2014 Pneumococcal vaccine <65 Aged Out No longer eligible based on patient's age to complete this topic Medical Devices Explanted Type Area Donor Support Technician Device Identifier Shelf Expiration Date Model / Serial / Lot [employer] [id number] 6fr 24cm 145cm Radiopaque Positioner Filiform Flexible Tip - [id number] Implanted:Qty: 1 on 04/07/2024 by Heather Esparza MD at [facility] Explanted:Qty: 1 on 04/28/2024 by Heather Esparza MD at [facility] Right: Ureter [employer] 01/23/2027 [id number] / / [employer] [id number] 6fr 24cm 145cm Radiopaque Positioner Filiform Flexible Tip - [id number] Implanted:Qty: 1 on 04/07/2024 by Heather Esparza MD at [facility] Explanted:Qty: 1 on 04/28/2024 by Heather Esparza MD at [facility] Left: Ureter [employer] 12/10/2026 [id number] / / [employer] [id number] 6fr 24cm 145cm Radiopaque Positioner Filiform Flexible Tip - [id number] Implanted:Qty: 1 on 04/28/2024 by Heather Esparza MD at [facility] Explanted:Qty: 1 on 05/20/2024 by Heather Esparza MD Right: Ureter [employer] [id number] 01/23/2027 [id number] / / [id number] Procedures Procedure Name Priority Date/Time Associated Diagnosis Comments TROPONIN T HIGH-SENSITIVITY 2-HOUR Timed 09/07/2025 4:48 PM POLICE CHIEF DEPUTY URINALYSIS, MICROSCOPIC ONLY STAT 09/07/2025 4:34 PM POLICE CHIEF DEPUTY URINALYSIS AND REFLEX TO MICROSCOPIC AND CULTURE STAT 09/07/2025 4:34 PM POLICE CHIEF DEPUTY ECG 12-LEAD STAT 09/07/2025 3:43 PM POLICE CHIEF DEPUTY XR CHEST 1 VIEW ED 09/07/2025 3:24 PM POLICE CHIEF DEPUTY EGFR STAT 09/07/2025 3:09 PM POLICE CHIEF DEPUTY LIPASE STAT 09/07/2025 3:09 PM POLICE CHIEF DEPUTY DIFFERENTIAL AUTO STAT 09/07/2025 3:0 9 PM POLICE CHIEF DEPUTY PRO B-TYPE NATRIURETIC PEPTIDE STAT 09/07/2025 3:09 PM POLICE CHIEF DEPUTY TROPONIN T HIGH-SENSITIVITY SERIES (BASELINE, 2HR, 4HR, 6HR) STAT 09/07/2025 3:09 PM POLICE CHIEF DEPUTY COMPREHENSIVE METABOLIC PANEL STAT 09/07/2025 3:09 PM POLICE CHIEF DEPUTY CBC WITH AUTO DIFFERENTIAL STAT 09/07/2025 3:09 PM POLICE CHIEF DEPUTY ED LACERATION REPAIR Routine 08/28/2025 9:05 PM CDT ED LACERATION REPAIR Routine 08/28/2025 9:04 PM CDT from Last 3 Months Results * Troponin T high-sensitivity 2-hour (09/07/2025 4:48 PM POLICE CHIEF DEPUTY) Trop T hs <6 <=14 ng/L Comment: Interpretive Data For further hscTnT resources including the diagnostic algorithm and an aid in interpretation, copy and paste this link: https://nrl.testcatalog.org/show/hsTrop Current Interpretive Data last revised 2020. Trop T hs delta 0 ng/L [facility] Trop T hs interp Insignificant [facility] Blood 09/07/2025 4:48 PM POLICE CHIEF DEPUTY 09/07/2025 4:49 PM POLICE CHIEF DEPUTY [facility] BLOOD ORDERABLES Final R esult Performing Organization Address [facility] Co de Phone Number ISABEL [address] [place] [address] * (ABNORMAL) Urinalysis reflex to microscopic and culture Urine (09/07/2025 4:34 PM POLICE CHIEF DEPUTY) Color, ur Yellow Yellow Clarity, ur Clear Clear [facility] Specific gravity, ur 1.013 1.003 - 1.030 [facility] pH, urine 5.5 [facility] Comment: Interpretive Data U rine pH is affected by diet, medications, systemic acid-base disturbances, and renal tubular function. pH may affect urinary stone formation. For example, urine pH below 6.0 may help reduce the tendency for calcium phosphate stones and pH greater than 6.0 may reduce the tendency for uric acid stone formation. Source: [facility] Current Interpretive Data was last revised on 2017 Protein, ur ql Negative Negative [facility] Glucose, ur ql Negative Negative [facility] Ketones, ur Negative Negative [facility] Bilirubin, ur Negative Negative [facility] Blood, ur Negative Negative [facility] Urobilinogen, ur <2.0 <2.0 mg/dL [facility] Nitrite, ur Negative Negative [facility] Leukocyte esterase, ur 3+(A) Negative [facility] UA reflex comment Reflex to microscopic UA will be performed. [facility] Urine 09/07/2025 4:34 PM POLICE CHIEF DEPUTY 09/07/2025 4:37 PM POLICE CHIEF DEPUTY [facility] MICROBIOLOGY - GENERAL O RDERABLES Final Result Performing Organization Address City/[facility]/ZIP Co de Phone Number ISABEL [address] [place] [address] * (ABNORMAL) Urinalysis, microscopic only (09/07/2025 4:34 PM POLICE CHIEF DEPUTY) WBC, ur 0-5 0 - 5 /HPF RBC, ur 3-5(A) 0 - 2 /HPF [facility] Epithelial cells, squamous, ur 6-10(A) 0 - 5 /HPF [facility] Comment:Suggestive of contam ination. Consider recollection by clean catch. Mucous, ur Present(A) [facility] Culture Reflex Comment Reflex conditions for urine culture (WBC >10) not met. [facility] Urine 09/07/2025 4:34 PM POLICE CHIEF DEPUTY 09/07/2025 4:37 PM POLICE CHIEF DEPUTY [facility] URINE ORDERABLES Final R esult Performing Organization Address City/[facility] Co de Phone Number [facility] [address] Department [place] [address] * ECG 12 lead (09/07/2025 3:43 PM POLICE CHIEF DEPUTY) Ventricular Rate EKG/Min 66 BPM [facility] Atrial Rate 66 BPM [facility] [place]-Interval (MSEC) 186 ms [facility] QRS-Interval (MSEC) 98 ms [facility] QT-Interval (MSEC) 432 ms [facility] QTc 452 ms [facility] P [place] 45 degrees [facility] R [place] 2 degrees [facility] T [place] 26 degrees [facility] Diagnosis Normal sinus rhythm Normal ECG When compared with ECG of 07-JUN-2025 16:47, QT has shortened Confirmed by SULTAN AMBROCIO M.D. ([id number]) on 09/07/2025 5:59:59 PM [facility] 09/07/2025 3:43 PM POLICE CHIEF DEPUTY 09/07/2025 5:59 PM POLICE CHIEF DEPUTY [facility] ECG ORDERABLES Final Result Performing Organization Address [facility] Co de Phone Number [facility] * XR Chest 1 View (09/07/2025 3:24 PM POLICE CHIEF DEPUTY) Anatomical Region Laterality Modality Body, Chest N/A Computed Radiogr aphy 09/07/2025 3:41 PM POLICE CHIEF DEPUTY Impressions 09/07/2025 3:41 PM POLICE CHIEF DEPUTY 1. No radiographic evidence of acute cardiopulmonary process Electronically signed by: Macarena Solo M.D. Narrative 09/07/2025 3:41 PM POLICE CHIEF DEPUTY EXAMINATION: XR CHEST 1 VIEW HISTORY: Heart failure suspected, dyspnea and/or edema TECHNIQUE: AP portable upright COMPARISON: 06/07/2025, 10/23/2021. FINDINGS: There is no consolidation. There is no effusion or pneumothorax. Cardiac silhouette and mediastinal contours within normal limits. No acute osseous abnormality. Procedure Note Macarena Solo MD - 09/07/2025 EXAMINATION: XR CHEST 1 VIEW HISTORY: Heart failure suspected, dyspnea and/or edema TECHNIQUE: AP portable upright COMPARISON: 06/07/2025, 10/23/2021. FINDINGS: There is no consolidation. There is no effusion or pneumothorax. Cardiac silhouette and mediastinal contours within normal limits. No acute osseous abnormality. IMPRESSION: 1. No radiographic evidence of acute cardiopulmonary process Electronically signed by: Macarena Solo M.D. [facility] IMG XR PROCEDURES Final Resu lt * Troponin T high-sensitivity series (baseline, 2hr, 4hr, 6hr) (09/07/2025 3:09 PM POLICE CHIEF DEPUTY) Trop T hs <6 <=14 ng/L Comment: Interpretive Data For further hscTnT resources including the diagnostic algorithm and an aid in interpretation, copy and paste this link: https://nrl.testcatalog.org/show/hsTrop Current Interpretive Data last revised 2020. Blood 09/07/2025 3:09 PM POLICE CHIEF DEPUTY 09/07/2025 3:14 PM POLICE CHIEF DEPUTY [facility] BLOOD ORDERABLES Final R esult [facility] [address] Department [place] [address] * eGFR (09/07/2025 3:09 PM POLICE CHIEF DEPUTY) [facility] eGFR >90 >=60 mL/min/1. 73 m2 Comment: Interpretive Data Reference Interval Normal >/= 90 mL/min/1.73m2 Mildly decreased* 60 - 89 mL/min/1.73m2 Mildly to moderately decreased 45 - 59 mL/min/1.73m2 Moderately to severely decreased 30 - 44 mL/min/1.73m2 Severely decreased 15 - 29 mL/min/1.73m2 Kidney Failure < 15 mL/min/1.73m2 *Relative to young adult level Estimated glomerular filtration rate is determined by the 2020 CKD-EPI equation recommended by the National Kidney Foundation (A Unifying Approach to GFR Estimation: Recommendations of the NKF-ASK Task Force on Reassessing the Inclusion of Race in Diagnosing Kidney Disease, JASN 2020). The CKD-EPI equation should not be used for patients with unstable renal function and has not been validated in children and those over 70. Current interpretive data was last reviewed 2021. Blood 09/07/2025 3:09 PM POLICE CHIEF DEPUTY 09/07/2025 3:14 PM POLICE CHIEF DEPUTY [facility] BLOOD ORDERABLES Final R esult [facility] [address] Department [place] [address] * (ABNORMAL) Differential, auto (09/07/2025 3:09 PM POLICE CHIEF DEPUTY) [facility] Neutrophil abs 1.13(L) 1.50 - 6.50 K/cumm Imm gran abs 0.00 0.00 - 0.10 K/cumm [facility] Lymphocyte abs 1.54 0.80 - 3.30 K/cumm [facility] Monocyte abs 0.36 0.20 - 0.80 K/cumm [facility] Eosinophil abs 0.08 0.00 - 0.50 K/cumm [facility] Basophil abs 0.04 0.00 - 0.10 K/cumm [facility] Neutrophil pct 35.9 % [facility] Comment: Interpretive Data Percent cell count reference ranges are not reported, since discordance with absolute values may lead to misinterpretation of CBC data. Current Interpretive Data was last revised on 2018. Imm gran pct 0.0 % [facility] Comment: Interpretive Data Percent cell count reference ranges are not reported, since discordance with absolute values may lead to misinterpretation of CBC data. Current Interpretive Data was last revised on 2018. Lymphocyte pct 48.9 % [facility] Comment: Interpretive Data Percent cell count reference ranges are not reported, since discordance with absolute values may lead to misinterpretation of CBC data. Current Interpretive Data was last revised on 2018. Monocyte pct 11.4 % [facility] Comment: Interpretive Data Percent cell count reference ranges are not reported, since discordance with absolute values may lead to misinterpretation of CBC data. Current Interpretive Data was last revised on 2018. Eosinophil pct 2.5 % [facility] Comment: Interpretive Data Percent cell count reference ranges are not reported, since discordance with absolute values may lead to misinterpretation of CBC data. Current Interpretive Data was last revised on 2018. Basophil pct 1.3 % [facility] Comment: Interpretive Data Percent cell count reference ranges are not reported, since discordance with absolute values may lead to misinterpretation of CBC data. Current Interpretive Data was last revised on 2018. Blood 09/07/2025 3:09 PM POLICE CHIEF DEPUTY 09/07/2025 3:14 PM POLICE CHIEF DEPUTY us [facility] BLOOD ORDERABLES Final R esult ISABEL [address] Department of Laboratories [place], [place] [id number] * (ABNORMAL) Pro B-type natriuretic peptide (09/07/2025 3:09 PM POLICE CHIEF DEPUTY) NT-proBNP 526(H) <=300 pg/mL Comment: Interpretive Comments: A. Dyspnea in Acute Care Setting All Ages: < 300 pg/ml, acute heart failure unlikely. < 50 yrs: 300 - 450 pg/ml, further investigation warranted. > 450 pg/ml, acute heart failure likely. 50 - 74 yrs: 300 - 900 pg/ml, further investigation warranted. > 900 pg/ml, acute heart failure likely . > or = 75 yrs: 450 - 1800 pg/ml, further investigation warranted. > 1800 pg/ml, acute heart failure likely. B. Non-acute Setting < 75 yrs < 125 pg/ml, rules out heart failure. > or = 125 pg/ml, further investigation warranted. > or = 75 yrs < 450 pg/ml, rules out heart failure. > or = 450 pg/ml, further investigation warranted. - Knowledge of each individual patient's NT-proBNP range may be more useful than using similar cut-points for every patient. Please note that marked elevations in NT-proBNP levels may be observed in state other than Left Ventricular Congestive Failure, including: acute coronary syndromes, right heart strain/failure (including pulmonary embolism and cor pulmonale), critical illness, renal failure, as well as advanced age. - References: 1. Kellie ROTHMAN et.al. Eur Heart J. 2006:27:330-337. 2. Eric RW, Taylor RAMIREZ. J. AM Jakob Cardiol: Cardiovasc Imag. 2009;2: 216- 225. Interpretive Data Last Revised Date: 2018. Blood 09/07/2025 3:09 PM POLICE CHIEF DEPUTY 09/07/2025 3:14 PM POLICE CHIEF DEPUTY [facility] BLOOD ORDERABLES Final R esult [facility] [address] Department [place] [address] * (ABNORMAL) CBC with auto differential (09/07/2025 3:09 PM POLICE CHIEF DEPUTY) Pathologist [facility] WBC 3.15(L) 3.80 - 9.90 K/cumm Hgb 8.9(L) 11.9 - 15.5 g/dL [facility] Hct 30.0(L) 35.6 - 45.5 % [facility] Plt 181 150 - 400 K/cumm [facility] MPV 12.3 9.1 - 12.3 fL [facility] RBC 3.30(L) 3.90 - 5.20 M/cumm [facility] MCV 90.9 81.3 - 96.4 fL [facility] MCH 27.0(L) 27.1 - 33.3 pg [facility] MCHC 29.7(L) 32.3 - 35.7 g/dL [facility] RDW CV 21.2(H) 11.1 - 14.9 % [facility] RDW SD 68.8(H) 35.7 - 48.1 fL [facility] NRBC abs 0.00 0.00 - 0.01 K/cumm [facility] Blood 09/07/2025 3:09 PM POLICE CHIEF DEPUTY 09/07/2025 3:14 PM POLICE CHIEF DEPUTY [facility] BLOOD ORDERABLES Final R esult Performing Organization Address [facility] Co de Phone Number [address] [place] [place] [address] * Lipase (09/07/2025 3:09 PM POLICE CHIEF DEPUTY) [facility] Lipase 33 10 - 99 Units/L Blood 09/07/2025 3:09 PM POLICE CHIEF DEPUTY 09/07/2025 3:14 PM POLICE CHIEF DEPUTY [facility] BLOOD ORDERABLES Final R esult Performing Organization Address City/[facility] Co de Phone Number [address] [place] [address] * (ABNORMAL) Comprehensive metabolic panel (09/07/2025 3:09 PM POLICE CHIEF DEPUTY) [facility] Sodium 139 135 - 145 mmol/L Potassium, pl 3.8 3.3 - 4.9 mmol/L [facility] Chloride 107 97 - 110 mmol/L [facility] CO2 25 22 - 32 mmol/L [facility] Anion gap 7 2 - 15 mmol/L [facility] BUN 7 6 - 25 mg/dL [facility] Creatinine 0.53(L) 0.60 - 1.10 mg/dL [facility] Glucose 87 70 - 199 mg/dL [facility] Comment: Interpretive Data Fasting glucose >/= 126 mg/dl is diagnostic for diabetes. Fasting is defined as no caloric intake for at least 8 hours. Fasting glucose between 100 mg/dl to 125 mg/dl is diagnostic of prediabetes. In a patient with classic symptoms of hyperglycemia or hyperglycemic crisis, a random glucose >/= 200 mg/dl is diagnostic for diabetes. In the absence of unequivocal hyperglycemia, results should be confirmed by repeat testing. The classification and Diagnosis of Diabetes Diabetes Care 202; 46: S19-S40. Current interpretive data was last revised 2022. Calcium 8.4(L) 8.5 - 10.3 mg/dL [facility] Bilirubin, total 0.3 0.1 - 1.2 mg/dL [facility] Protein, pl 5.7(L) 6.5 - 8.5 g/dL [facility] Albumin 3.4(L) 3.5 - 5.0 g/dL [facility] Alk phos 100 40 - 130 Units/L [facility] ALT 38 7 - 45 Units/L [facility] AST 82(H) 10 - 45 Units/L [facility] Blood 09/07/2025 3:09 PM POLICE CHIEF DEPUTY 09/07/2025 3:14 PM POLICE CHIEF DEPUTY us Mickey [facility] BLOOD ORDERABLES Final R esult ISABEL [address] [facility] Department [place] [address] * Laceration Repair (08/28/2025 9:05 PM CDT) Narrative Adia Morelos PA - 08/28/2025 9:05 PM CDT Adia Morelos PA 08/28/2025 9:25 PM Laceration Repair Date/Time: 08/28/2025 9:05 PM Performed by: Adia Morelos PA Authorized by: Alli Richardson Jr., MD Location: Leg Leg location: R upper leg Length (cm): 1 Repair method: Sutures Suture size: 5-0 Suture material: Nylon Suture technique: Simple interrupted Number of sutures: 1 Approximation: Loose Dressing: Antibiotic ointment and non-adherent dressing us Alli Richardson Jr., MD IN CLINIC/BEDSIDE ORDER HERMLEINDA Final Result * Laceration Repair (08/28/2025 9:04 PM CDT) Narrative Adia Morelos PA - 08/28/2025 9:04 PM CDT Adia Morelos PA 08/28/2025 9:25 PM Laceration Repair Date/Time: 08/28/2025 9:04 PM Performed by: Adia Morelos PA Authorized by: Alli Richardson Jr., MD Location: Leg Leg location: R upper leg Length (cm): 1 Repair method: Sutures Suture size: 4-0 Suture material: Nylon Suture technique: Simple interrupted Number of sutures: 1 Approximation: Loose Dressing: Antibiotic ointment and non-adherent dressing us Alli Richardson Jr., MD IN CLINIC/BEDSIDE ORDER HERMELINDA Final Result from Last 3 Months Insurance [facility] Advance Directives For more information, please contact: [phone] * Full Code (Latest Code Status on File) Date Activated Date Inactivated Comments 04/06/2024 8:05 PM 04/09/2024 5:19 PM * Full Code Date Activated Date Inactivated Comments 04/30/2021 7:57 PM 05/03/2021 6:08 PM Care Teams Railroad Construction Director Relationship Specialty Start Date End Date Bib Kramer MD [address] [place] [id number] PCP - General Emergency Medicine 04/06/24 José Mishra MD Radiation Oncologist Radiation Oncology 06/28/22 Eddie Tobin MD Medical Oncologist/Brand Planner Medical Oncology 07/18/22 Aden Amato MD [address] [place] [id number] Medical Oncologist/Brand Planner Hematology and Oncology 04/15/24
[2025-09-19 09:58] VITALS: BP 142/87; PULSE 90; RESP 16; TEMP 36.6; O2SAT 100
--- NOTE | 2025-09-19 10:08 | ED.WOUNDLAC ---
HPI - Wound/Laceration General Chief Complaint: Wound/Laceration Stated Complaint: L leg wound Time Seen by Provider: 09/19/25 10:07 Source: patient Mode of arrival: ambulatory Limitations: no limitations History of Present Illness HPI narrative: 40 years old female had a dog bite at the back of the right thigh 3 weeks ago, [facility], puncture wound, sutured, discharged on Augmentin 5 days. Suture removed 10 days ago, still feeling swollen and tender to touch. No discharge Patient is not diabetic, denies any fever, chills, nausea, vomiting. Related Data Home Medications ?Medication ?Instructions ?Recorded ?Confirmed ?Last Taken ?Type omeprazole 40 mg capsule,delayed 40 mg PO DAILY 12/18/19 07/12/24 11/06/21 History release sertraline 50 mg tablet 50 mg PO DAILY 12/18/19 07/12/24 11/06/21 History lurasidone 40 mg tablet 40 mg PO DAILY 12/27/23 07/12/24 Unknown History sertraline 25 mg tablet 25 mg PO DAILY 12/27/23 07/12/24 Unknown History Allergies Allergy/AdvReac Type Severity Reaction Status Date / Time peanut Allergy Severe RASH, Verified 09/19/25 09:57 THROAT SWELLING rabies vaccine, human Allergy Severe Swelling Verified 09/19/25 09:57 diploid cell (From Imovax Rabies Vaccine) adhesive AdvReac Intermediate RASH/ Verified 09/19/25 09:57 BLISTERS lidocaine AdvReac Intermediate Rash Verified 09/19/25 09:57 Review of Systems Review of Systems: All systems reviewed & are unremarkable except as noted in HPI and below PMFSH Past Medical History Medical History Anxiety Depression Wears glasses PONV (postoperative nausea and vomiting) Distal radius fracture, right 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 Hypertension History of gastroesophageal reflux (GERD) Surgical History Surgical History History of left salpingo-oophorectomy History of sleeve gastrectomy Family History Family History Mother Family history of thyroid disease Family history of chronic obstructive pulmonary disease Sibling Hypertension Asthma Family history of arthritis Family history of malignant neoplasm of uterus Father Family history of lung cancer Other Diabetes mellitus Distal radius fracture, right Family history of allergic disorder Family history of cardiovascular disease Social History Social History Alcohol intake: current Substance use: never Substance use type: does not use Living arrangements: with family Additional living arrangements comments: CHILDREN Spiritual care concerns: No Exam Narrative: General appearance: Well-developed, well-nourished Skin: Normal color to puncture wound at the back of the right thigh, healed, no surrounding erythema, dry and clean, diffuse induration under the skin. And tenderness. No fluctuation Head: Normocephalic, nontraumatic Chest and respiratory: Airway patent, no respiratory distress, no accessory muscle use Heart: Regular rate/rhythm Abdomen: Soft, nontender, no organomegaly, quiet bowel sounds Musculoskeletal: Normal range of motion, nontender back Neurologic: Alert and oriented ?3, PALLIATIVE CARE NURSE PRACTITIONER is normal as tested, no gross motor deficit Course Vital Signs Vital signs: Vital Signs Temperature 36.6 C 09/19/25 09:58 Pulse Rate 90 09/19/25 09:58 Respiratory Rate 16 09/19/25 09:58 Blood Pressure 142/87 H 09/19/25 09:58 Pulse Oximetry 100 09/19/25 09:58 Oxygen Delivery Room Air 09/19/25 09:58 Temperature 36.6 C 09/19/25 09:58 Pulse Rate 90 09/19/25 09:58 Respiratory Rate 16 09/19/25 09:58 Blood Pressure 142/87 H 09/19/25 09:58 Pulse Oximetry 100 09/19/25 09:58 Oxygen Delivery Room Air 09/19/25 09:58 MDM - Wound/Laceration MDM Narrative Medical decision making narrative: Patient had the dog bite, puncture wound at the back of the right thigh, unfortunately was sutured 3 weeks ago, discharged on Augmentin for 5 days only. Patient received a tetanus shot at that time. Physical exam today showed healed puncture wound, dry and clean, subcutaneous induration without fluctuation, Retaining infection still a possibility, puncture 1 should not be sutured, my plan to discharge patient on Augmentin and follow-up with surgery as needed. Patient is prone to yeast infection with Augmentin Differential Diagnosis Differential diagnosis: Likely other (As above) Critical Care Time Critical Care Time Critical Care Time: No Discharge Plan Discharge Clinical Impression: Wound infection Patient Disposition: Home Condition: Stable Instructions: Antibiotic Form, Wound Infection (DC) Additional Instructions: Return if symptoms are worsening , call your family physician for appointment, take Tylenol as as needed for aches and pain, continue home medications., warm compresses Patient Language: Belarusian Prescriptions: New amoxicillin-pot clavulanate [Augmentin] 500-125 mg tablet 1 tablet PO Q8H Qty: 30 0RF fluconazole 150 mg tablet 150 mg PO ONCE Qty: 2 0RF Rx Instructions: as a single dose fluconazole 150 mg tablet 150 mg PO ONCE Qty: 2 0RF Rx Instructions: Take 1 tablet today and the 2nd tablet 48 hours later No Action omeprazole 40 mg capsule,delayed release(DR/EC) 40 mg PO DAILY sertraline 50 mg tablet 50 mg PO DAILY sertraline 25 mg tablet 25 mg PO DAILY lurasidone 40 mg tablet 40 mg PO DAILY benzonatate 150 mg capsule 150 mg PO TID PRN (Reason: cough) Qty: 30 0RF prednisone 50 mg tablet 50 mg PO DAILY Qty: 5 0RF potassium chloride 20 mEq tablet extended release 20 meq PO DAILY Qty: 7 0RF famotidine 20 mg tablet 20 mg PO DAILY Qty: 30 0RF dicyclomine 20 mg tablet 20 mg PO TID PRN (Reason: abdominal pain) Qty: 30 0RF alum-mag hydroxide-simeth [Maalox Advanced] 200-200-20 mg/5 mL suspension 10 ml PO QID PRN (Reason: dyspepsia) Qty: 300 0RF Rx Instructions: administer between meals and at bedtime ondansetron 4 mg tablet,disintegrating 4 mg PO Q8H PRN (Reason: nausea and vomiting) Qty: 10 0RF cephalexin 500 mg capsule 500 mg PO Q12H Qty: 14 0RF Follow-up/Referrals: Bib Kramer MD [Primary Care Provider, Family Practice] Lavelle Griffith MD [Physician, General Surgery] - 09/24/25
[2025-09-19 11:11] VITALS: BP 139/88; PULSE 80; RESP 15; O2SAT 99
== END 2025-09-19 11:13 | disposition home or self-care (01) ==
PROVIDERS: Emergency Provider Emergency Medicine; PCP Emergency Medicine
DX: S71.151D Open bite, right thigh, subsequent encounter (principal); L08.9 Local infection of the skin and subcutaneous tissue, unspecified; I10 Essential (primary) hypertension; W54.0XXD Bitten by dog, subsequent encounter
CPT/HCPCS: 99283

== ENCOUNTER 2025-10-19 16:53 | Emergency (ER) | payer OTHER, SELFPAY ==
--- OUTSIDE RECORDS SUMMARY | 2025-10-19 16:55 | XMS_ITS ---
Author Organization [facility] [place] [address] Address [address] [place] [address] Care Team Providers Care Collator Operator Name Role Phone José Mishra MD Unavailable [phone] Eddie Tobin MD Unavailable [phone] Bib Kramer MD Primary Care Provider [phone] Aden Amato MD Unavailable [phone] Active Problems Problem Noted Date Diagnosed Date [...]
--- OUTSIDE RECORDS SUMMARY | 2025-10-19 16:55 | XMS_ITS | Clinical Summary ---
Author Organization [employer] [facility] Address [address] [facility] [employer] [place] [address] Care Team Providers Care Vamp Seamer Name Role Phone Darren Ortega MD Primary Care Provider Saida vailable Allergies No known active allergies Medications OMEPRAZOLE ORAL Take by mouth. Active sertraline HCl (SERTRALINE ORAL) Take by mouth. Active Social History Tobacco Use Types Packs/Day Years Used Date Smoking Tobacco: Never Smokeless Tobacco: Never Comments No Sex and Gender Information Value Date Recorded Sex Assigned at Female 09/22/2021 6:34 PM EST Legal Sex Female 6:32 PM EST Gender Identity Female 09/22/2021 6:34 PM EST Sexual Orientation Straight 09/22/2021 6: 34 PM EST Plan of Treatment Not on file Medical Devices Not on file Insurance Care Teams Vamp Seamer Relationship Specialty Start Date End Date Darren Ortega MD PCP - General Internal Medicine 09/23/21
--- OUTSIDE RECORDS SUMMARY | 2025-10-19 16:55 | XMS_ITS | Patient Health Record ---
Author Organization [facility] Address [address] [place] [address] Phone [phone] Care Team Providers Care Blocker Polishing Name Role Phone Juli Rico Primary Care Provider [phone] Al Tanner Unavailable Allergies No Known Allergies Reason For Referral No Information Medications Medication SIG (Take, Route, Frequency, Duration) Notes Start Date End Date Diagnosis (ICD Code) Status Lurasidone HCl 40 MG Tablet 1 tablet in the evening with food Orally Once a day; Duration: 30 days Bipolar disorder current episode depressed (ICD_10 - F31.30) Active Fluconazole 100 MG Tablet 1 tablet. take one tablet on day one, then take the second tablet 2 days later Orally daily; Duration: 2 days 09/07/2025 Vaginal yeast infection (ICD_10 - B37.31) Active hydrOXYzine Pamoate 25 MG Capsule 1 capsule up to four times daily as needed Orally daily; Duration: 30 days Anxiety (ICD_10 - F41.9) Active Social History Tobacco Use: Social History Observation Description Date Details (start date - stop date) Never Smoker NA - NA Sex Observation Social History Observation Description Sex Observation Female Social History Miscellaneous Social Info Question Answer Notes Method of learning: Preferred method of learning: Hear ing Primary Social History Social Info Question Answer Notes Living Arrangement Living Arrangement: Independent Lorelei ing Is this a supportive environment? Yes Single Question Alcohol Screening How ma ny times in the past year have you had (4 for women, or 5 for men) or more drinks in a day? 0 Employment Status Employment Status: Unemployed Illicit Substance Usage Illicit Substance Usage: No Alcohol Use Alcohol Use Frequency: Never Tobacco Use: Social Info Question Answer Notes Tobacco Control (Standard) Tobacco use: Nonsmoker Additional Findings: Tobacco non-user Current no nsmoker,Tolerant nonsmoker Problems Problem Type SNOMED Code ICD Code Dates Problem Status W/U Status Risk Notes Problem Posttraumatic stress disorder (42443653) PTSD (post-traumati c stress disorder) (F43.10) Added On:2024 Active confirmed Problem Anxiety (14234216) Anxiety (F41.9) Added On:2024 Active confirmed Problem Overweight (491182579) Over weight (E66.3) Added On:2024 Active confirmed Problem Depressed bipolar I disorder (37304428) Bipolar disorder current episode depressed (F31.30) Added On:2024 Active confirmed Problem Obsessive-compuls allegra disorder (668096666) OCD (obsessive compulsive disorder) (F42.9) Added On:2024 Active confirmed Vital Signs Vital Sign Value Notes Appt Date Heart Rate 72 /min 09/07/2025 Temperature 98.3 degrees Fahrenheit 08/28 Respiratory Rate 18 /min 09/07/2025 Oximetry 100 % 09/07/2025 Blood pressure diastolic 78 mm Hg 08/2025 Height 66 in 09/07/2025 Blood pressure systolic 120 mm Hg 08/28 Weight 290 lbs 09/07/2025 BMI 46.8 kg/m2 09/07/2025 Encounters Date Time Type Facility Location Provider Diagnosis 08/11/20 11:00 AM Telehealth Office Visit, New Pt., Level 3 (01[address]) [address] [address] Juli Rico Bipolar disorder current episode depressed F31.30 ; OCD (obsessive compulsive disorder) F42.9 ; PTSD (post-traumat ic stress disorder) F43.10 and Anxiety F41.9 09/07/20 11:00 AM Office Visit, Est Pt., Level 3 (37352) [facility] [address] [place] [address] Al Tanner Allergic reaction to drug, initial encounter T78.40XA ; Vaginal yeast infection B37.31 and Over weight E66.3 09/13/20 08:20 AM Telehealth Office Visit, Est Pt., Level 3 ([address]001) [address] [address] Juli Jacky Bipolar disorder current episode depressed F31.30 ; OCD (obsessive compulsive disorder) F42.9 ; PTSD (post-traumat ic stress disorder) F43.10 and Anxiety F41.9 08/11/20 10:59 AM Telephone Encounter [address] [address] Juli Jacky 08/30/20 12:30 PM Telephone Encounter [address] [address] Juli Jacky Bipolar disorder current episode depressed F31.30 and Anxiety F41.9 Assessments Encounter Date Diagnosis (ICD Code) Assessment Notes Treatment Notes Section Notes 08/11/2025 Bipolar disorder current [...] side effects or need for dosage change. 08/30/2025 Bipolar disorder current episode depressed (ICD-10 - F31.30) 09/13/2025 Bipolar disorder current episode depressed (ICD-10 - F31.30) 08/11/2025 OCD (obsessive compulsive disorder) (ICD-10 - [...] 09/07/2025 Vaginal yeast infection (ICD-10 - B37.31) 09/07/2025 Over weight (ICD-10 - E66.3) 09/13/2025 OCD (obsessive compulsive disorder) (ICD-10 - F42.9) 08/11/2025 PTSD (post-traumatic stress disorder) (ICD-10 - F43.10) 08/30/2025 Anxiety (ICD-10 - F41.9) 09/13/2025 PTSD (post-traumatic stress disorder) (ICD-10 - F43.10) 08/11/2025 Anxiety (ICD-10 - F41.9) Begin hydroxyzine. Take as prescribed. Reviewed purpose (reduce anxiety and/or promote sleep), benefits, and risks - including sedation and dry mouth. Call for problems with medication, side effects or need for dosage change. 09/13/2025 Anxiety (ICD-10 - F41.9) May self-administer medications or be administered own oral medications per [facility] protocols. Provided informed consent with understanding of [...] [] [employer] Reviewed Encouraged by Juli Rico PMHNP-BC to: [] consider utilizing therapist/counselor/soc ial worker/psychologist, referral given [] continue with therapist/counselor/soc ial worker/psychologist Psychoeducation: -Treatment options discussed in detail with patient/guardian verbalizing understanding of treatment rationales. -Side effects and benefits of all medications prescribed discussed at length between psychiatric prescribing provider and patient/guardian along with the risks associated of [id number] interactions, including but not limited to prescription [...] engaged in treatment plan with Juli Rico [facility]. -Perceiving complete understanding of rationale by patient/guardian and willingness to adhere to formulated plan of care by prescriber with patient/guardian buy-in, willingness to participate actively in plan of care and willing to take charge of own care. -Although geared for female patients, all patients/guardians are informed by prescribing provider of risks of medications that could potentially be taken by female/women within their cheesh-na of influence and that women who use [...] a should occur, to consult with provider, COIN MACHINE COLLECTOR SUPERVISOR and/or Nurse Electrical Superintendent to determine if prescribed medications should or should not be continued. -Instructions regarding both the medical/pharmacological and non-pharmacologic aspects of the treatments employed [...] or be administered own oral medications per [facility] protocols. Provided informed consent with understanding of [...] [] [facility]Sight Reviewed Encouraged by [facility] to: [] consider utilizing therapist/counselor/soc ial worker/psychologist, referral given [x] continue with therapist/counselor/soc ial worker/psychologist Psychoeducation: -Treatment options discussed in detail with patient/guardian verbalizing understanding of treatment rationales. -Side effects and benefits of all medications prescribed discussed at length between psychiatric prescribing provider and patient/guardian along with the risks associated of [id number]-[id number] interactions, including but not limited to prescription [...] engaged in treatment plan with Juli Rico [facility]. -Perceiving complete understanding of rationale by patient/guardian and willingness to adhere to formulated plan of care by prescriber with patient/guardian buy-in, willingness to participate actively in plan of care and willing to take charge of own care. -Although geared for female patients, all patients/guardians are informed by prescribing provider of risks of medications that could potentially be taken by female/women within their cheesh-na of influence and that women who use [...] a should occur, to consult with provider, COIN MACHINE COLLECTOR SUPERVISOR and/or Nurse Electrical Superintendent to determine if prescribed medications should or should not be continued. 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
--- OUTSIDE RECORDS SUMMARY | 2025-10-19 16:55 | XMS_ITS | Clinical Summary ---
Author Organization [facility] [employer] Address [address] [place] [address] Care Team Providers Care Rewinder Operator Name Role Phone Darren Ortega MD Primary Care Provider [phone] [facility] [employer],non-owned Affiliates and Associated Physician Practices is amultiple site organization consisting of ambulatory clinics and hospital sitesin [place], [place], [place] and [place]. This disclosure is being madepursuant to the Care Everywhere program and may not contain all information available regarding this patient. Last updated 18.[facility] [employer] Allergies Active Allergy Reactions Criticality Noted Date Comments Adhesive Sensitivity Rash Medium 03/25/2018 Lidocaine Rash High Swelling Peanut-Derived Swelling Medications * Be aware that medications may not be up to date on this document. Alwaysverify current medications with the patient. vitamin D, ergocalciferol, (DRISDOL) 1.25 MG (73622 UT) capsule Take 50,000 Units by mouth [...] Angulo was screened for depression using the [place] Depression Scale (EPDS) at her [facility] initial evaluation on 04/07/2018. Her initial score at baseline was 12. Based off of her score of 12, Su will receive follow up call from [facility] social science manager Jayda Oakes within the week. Patient will [...] from the original note were not included. [facility] PATIENT--PLEASE CALL [phone] (ex 2) IF TRIAGED OR ADMITTED Care Provider: Dr. Marisel Brooks [facility] Care [place] consultants involved: RN-Dio/Paco; Lauren-Geoff; Urology- Shante Diagnosis: [...] by calling Dariana Doherty, clinical nurse, at [phone] Ok to circumcise male with normal urethral meatus Hot Wort Settler: Dr. 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
--- OUTSIDE RECORDS SUMMARY | 2025-10-19 16:55 | XMS_ITS | Clinical Summary ---
Author Organization [facility] Address [address], [facility] [address] [place] [address] Phone Care Team Providers Care Transit Coach Operator Name Role Phone Darren Ortega MD Primary Care Provider [phone] Sudeep Ayala MD Unavailable [phone] Allergies Active Allergy Reactions Criticality Noted Date [...] mg by mouth. Active ergocalciferol (VITAMIN D) 81686 UNIT Capsule TK 1 C PO Q [...] on file Legal Sex Female 1:10 PM AUTOMOBILE SALESMAN Gender Identity Not on file Sexual Orientation [...] 1986 TdaP Immunization 1986 SARS-COV-2 Immunization (#1) 1986 Varicella Immunization (1 of 2 - 13+ 2-dose series) 1999 Pneumococcal Immunization Co mbined (1 of 2 - PCV) 2005 Pap Smear 2007 Hepatitis B Immunization (2 of 3 - 19+ 3-dose series) 09/10/2014 08/13/2014 Cervical Cancer Screening (CCS) 2016 HPV/Cotest 2016 Influenza Immunization (#1) 2025 Respiratory Syncytial Virus (RSV) Immunization (Adult) (1 - 1-dose 75+ series) 2061 Human Papillomavirus (HPV) Immunization (No Doses Required) Completed Meningococcal Immunization (ACWY) Aged Out No longer eligible based on patient's age to complete this topic Rotavirus Immunization Aged Out No lo nger eligible based on patient's age to complete this topic Insurance Care Teams Transit Coach Operator Relationship Specialty Start Date End Date Darren Ortega MD [address] [place] [address] PCP - General Internal Medicine 04/02/19 Sudeep Ayala MD [address] [place] [id number] Consulting Physician Oncology 04/02/19
--- OUTSIDE RECORDS SUMMARY | 2025-10-19 16:55 | XMS_ITS | Continuity of Care Document ---
Author Name [facility] Address [address] [place], [place] [address] [place] [address] Organization Unknown Address [address] [place] [address] Medications No known medications Problems No known problems
--- OUTSIDE RECORDS SUMMARY | 2025-10-19 16:56 | XMS_ITS | Clinical Summary ---
Author Organization [facility] Flash chavez [facility] [place] [facility] Address [address] [place] [address] Care Team Providers Care Bologna Maker Name Role Phone Unavailable Primary Care Provider [...] st Contact Info) Description 11/22/2025 1:30 PM MOBILE MECHANIC Office Visit [facility] Oncology and Hematology - [address] [place] [address] Ricki Chew MD [address] [facility] [address] [place] [address] Health Maintenance Due Date Last Done Comments DTAP/TDAP/TD VACCINES (1 - Tdap) 2005 HEPATITIS B VACCINES (1 of 3 - 19+ 3-dose series) 03/28 HPV/Cotest (21-29) 2007 CERVICAL CANCER SCREENING 2016 HPV/Cotest (30-65) 2016 PAP SMEAR 2016 INFLUENZA VACCINE (#1) 2025 HPV VACCINES (No Doses Required) Completed
--- OUTSIDE RECORDS SUMMARY | 2025-10-19 16:56 | XMS_ITS | Clinical Summary ---
Author Organization [facility] [address] Address [address] [place] [address] Care Team Providers Care Proof Technician Helper Name Role Phone José Mishra MD Unavailable [phone] Eddie Tobin MD Unavailable [phone] Bib Kramer MD Primary Care Provider [phone] Aden Amato MD Unavailable [phone] Allergies Active Allergy Reactions Criticality Noted Date Comments Adhesive Tape-Silicones Rash Medium 03/25/2018 Lidocaine Rash High 04/02/2019 Swelling Peanut Swelling,Other (See comments) High 04/02/2019 And dyspnea Medications ergocalciferol (VITAMIN D) 50,000 unit capsule Take 1 capsule (50,000 Units total) by mouth once a week On Mondays02/26/20 19 Active lurasidone (LATUDA) 40 mg tablet Take 1 tablet (40 mg total) by mouth daily 03/13/20 24 Active cyanocobalamin (Vitamin B-12) 1,000 mcg/mL injection Inject 1 mL (1,000 mcg total) under the skin every 30 (thirty) days 1 mL 2 05/08/20 24 Active Additional Information Patient not taking.Reported on 09/12/2025 cyanocobalamin (Vitamin B-12) 500 mcg tabletIndications: Prevention of Vitamin B12 Deficiency Take 1 tablet (500 mcg total) by mouth daily 30 tablet 11 04/10/20 24 Active Additional Information Patient not taking.Reported [...] for pain 10 tablet 04/11/20 24 Active Additional Information Patient not taking.Reported on 09/12/2025 ondansetron ODT (ZOFRAN-ODT) 4 mg disintegrating tablet Take 1 tablet (4 mg total) by mouth every 8 (eight) hours as needed for nausea or vomiting 20 tablet 04/11/20 24 Active Additional Information Patient not taking.Reported on 09/12/2025 phenazopyridine (Pyridium) 100 mg tablet Take 1-2 tablets (100-200 mg total) by mouth 3 (three) times a day as needed for urinary pain 30 tablet 1 04/28/20 24 Active Additional Information Patient not taking.Reported on 09/12/2025 oxyBUTYnin (DITROPAN) 5 mg tablet Take 1 tablet (5 mg total) by mouth 3 (three) times a day as needed (bladder spasms) 30 tablet 1 04/28/20 24 Active Additional Information Patient not taking.Reported on 09/12/2025 ketorolac (TORADOL) 10 mg tablet Take 1 tablet (10 mg total) by mouth every 6 (six) hours as needed for pain 20 tablet 04/28/20 24 Active Additional Information Patient not taking.Reported on 09/12/2025 amoxicillin-clavul anate (AUGMENTIN) 875-125 mg per tablet Take 1 tablet by mouth every 12 (twelve) hours 14 tablet 08/28/20 25 Active Additional Information Patient not taking.Reason: Treatment complete. No longer taking., Reported on 09/12/2025 hydrOXYzine (VISTARIL) 25 mg capsule Take 1 capsule (25 mg total) by mouth 4 (four) times a day as needed 08/11/20 Active cyclobenzaprine (FLEXERIL) 10 mg tablet Take 1 tablet (10 mg total) by mouth 2 (two) times a day as needed for muscle spasms 20 tablet 09/07/20 25 Active famotidine (PEPCID) 20 mg tablet Take 1 tablet (20 mg total) by mouth 2 (two) times a day 10 tablet 09/07/20 25 Active diphenhydrAMINE 25 mg capsule Take 1 tablet/capsule (25 mg total) by mouth every 6 (six) hours as needed for itching 20 capsule 09/07/20 25 Active Active Problems Problem Noted Date Diagnosed [...] Department Care Team Description 09/12/2025 7:51 AM CUT OFF SAW SET UP OPERATOR - 09/12/2025 11:59 PM CUT OFF SAW SET UP OPERATOR Hospital Encounter [address] [address] Need for post exposure prophylaxis for rabies (Primary Dx) Discharge Disposition: Discharge to home or self care 09/07/2025 5:39 PM CUT OFF SAW SET UP OPERATOR - 09/07/2025 7:48 PM CUT OFF SAW SET UP OPERATOR Emergency [address] [address] Generalized body aches (Primary Dx); Allergic reaction, initial encounter Discharge Disposition: Discharge to home or self care 09/07/2025 Orders Only [address] [address] Yue Daigle RN 09/05/2025 8:00 AM CUT OFF SAW SET UP OPERATOR - 09/05/2025 11:59 PM CUT OFF SAW SET UP OPERATOR Hospital Encounter [address] [address] Need for post exposure prophylaxis for rabies (Primary Dx) Discharge Disposition: Discharge to home or self care 08/31/2025 1:47 PM CUT OFF SAW SET UP OPERATOR - 08/31/2025 11:59 PM CUT OFF SAW SET UP OPERATOR Hospital Encounter [address] [address] Yue Daigle RN Need for post exposure prophylaxis for rabies (Primary Dx); Dog bite, initial encounter Discharge Disposition: Discharge to home or self care 08/28/2025 7:40 PM CDT - 08/28/2025 9:34 PM CDT Emergency [address] [address] Dog bite, initial encounter (Primary Dx); Need [...] drink = 0.6 oz pur e alcohol) [employer] Answer Date Recorded In the past 12 months has English [employer], gas, oil, or water [employer] threatened to shut off services in your home? No 04/07/2024 Social Connection and Isolation Panel Answer Date Recorded In a typical week, how many times do you talk on the phone with family, friends, or neighbors? Three times a week 04/07/2024 How often do you get togethe r with friends or relatives? Three times a week 04/07/2024 How often do you attend [facility] or restoration services? More than 4 times per year 04/07/2024 Do you belong to any clubs o r organizations such as episcopal groups, unions, fraternal or athletic groups, or [...] any time in the past 12 [facility], were you homeless or living in a senior living (including now)? No 04/07/2024 Personal Safety Answer Date Recorded Have you ever been in or are you currently in a harmful physical or emotional relationship or is someone making you feel afraid or unsafe? Denies 09/07/2025 Comments No Sex and Gender Information Value Date Recorded Sex Assigned at Not on file Legal Sex Female 3:45 AM CUT OFF SAW SET UP OPERATOR Gender Identity Female 04/07/2024 12:49 PM CDT Sexual Orientation Straight 04/07/2024 12 :49 PM CDT Last Filed Vital Signs Vital Sign Reading Time Taken Comments Blood Pressure 146/88 09/12/2025 8:12 AM CUT OFF SAW SET UP OPERATOR Pulse 64 09/12/2025 8:12 AM CUT OFF SAW SET UP OPERATOR Temperature 36.4 C (97.6 F) 09/12/2025 8:12 AM CUT OFF SAW SET UP OPERATOR Respiratory Rate 18 09/12/2025 8:12 AM CUT OFF SAW SET UP OPERATOR Oxygen Saturation 100% 09/12/2025 8:12 AM CUT OFF SAW SET UP OPERATOR Inhaled Oxygen Concentration - - Weight 131.1 kg (289 lb) 09/07/2025 2:44 PM CUT OFF SAW SET UP OPERATOR Height 167.6 cm (5' 6) 06/07/2025 4:51 [...] this topic Medical Devices Explanted Type Area Database Technician Device Identifier Shelf Expiration Date Model / Serial / Lot iubenda [id number] 6fr 24cm 145cm Radiopaque Positioner Filiform Flexible Tip - [id number] Implanted:Qty: 1 on 04/07/2024 by Heather Esparza MD at [facility] Explanted:Qty: 1 on 04/28/2024 by Heather Esparza MD at [facility] Right: Ureter [employer] 01/23/2027 [id number] / / [employer] [id number] 6fr 24cm 145cm Radiopaque Positioner Filiform Flexible Tip - [id number] Implanted:Qty: 1 on 04/07/2024 by Heather Esparza MD at [facility] Explanted:Qty: 1 on 04/28/2024 by Heather Esparza MD at [facility] Left: Ureter [employer] 12/10/2026 [id number] / / [employer] [id number] 6fr 24cm 145cm Radiopaque Positioner Filiform Flexible Tip - [id number] Implanted:Qty: 1 on 04/28/2024 by Heather Esparza MD at [facility] Explanted:Qty: 1 on 05/20/2024 by Heather Esparza MD Right: Ureter [employer] [id number] 01/23/2027 [id number] / / [id number] Procedures Procedure Name Priority Date/Time Associated Diagnosis Comments TROPONIN T HIGH-SENSITIVITY 2-HOUR Timed 09/07/2025 4:48 PM CUT OFF SAW SET UP OPERATOR URINALYSIS, MICROSCOPIC ONLY STAT 09/07/2025 4:34 PM CUT OFF SAW SET UP OPERATOR URINALYSIS AND REFLEX TO MICROSCOPIC AND CULTURE STAT 09/07/2025 4:34 PM CUT OFF SAW SET UP OPERATOR ECG 12-LEAD STAT 09/07/2025 3:43 PM CUT OFF SAW SET UP OPERATOR XR CHEST 1 VIEW ED 09/07/2025 3:24 PM CUT OFF SAW SET UP OPERATOR EGFR STAT 09/07/2025 3:09 PM CUT OFF SAW SET UP OPERATOR LIPASE STAT 09/07/2025 3:09 PM CUT OFF SAW SET UP OPERATOR DIFFERENTIAL AUTO STAT 09/07/2025 3:0 9 PM CUT OFF SAW SET UP OPERATOR PRO B-TYPE NATRIURETIC PEPTIDE STAT 09/07/2025 3:09 PM CUT OFF SAW SET UP OPERATOR TROPONIN T HIGH-SENSITIVITY SERIES (BASELINE, 2HR, 4HR, 6HR) STAT 09/07/2025 3:09 PM CUT OFF SAW SET UP OPERATOR COMPREHENSIVE METABOLIC PANEL STAT 09/07/2025 3:09 PM CUT OFF SAW SET UP OPERATOR CBC WITH AUTO DIFFERENTIAL STAT 09/07/2025 3:09 PM CUT OFF SAW SET UP OPERATOR ED LACERATION REPAIR Routine 08/28/2025 9:05 PM CDT ED LACERATION REPAIR Routine 08/28/2025 9:04 PM CDT from Last 3 Months Results * Troponin T high-sensitivity 2-hour (09/07/2025 4:48 PM CUT OFF SAW SET UP OPERATOR) Trop T hs <6 <=14 ng/L Comment: Interpretive Data For further hscTnT resources including the diagnostic algorithm and an aid in interpretation, copy and paste this link: https://nrl.testcatalog.org/show/hsTrop Current Interpretive Data last revised 2020. Trop T hs delta 0 ng/L ISABEL Trop T hs interp Insignificant ISABEL Blood 09/07/2025 4:48 PM CUT OFF SAW SET UP OPERATOR 09/07/2025 4:49 PM CUT OFF SAW SET UP OPERATOR us Mickey AMOS LAB BLOOD ORDERABLES Final R esult ISABEL [address] [facility] [place] [address] * (ABNORMAL) Urinalysis reflex to microscopic and culture Urine (09/07/2025 4:34 PM CUT OFF SAW SET UP OPERATOR) Color, ur Yellow Yellow Clarity, ur Clear Clear ISABEL Specific gravity, ur 1.013 1.003 - 1.030 ISABEL pH, urine 5.5 ISABEL Comment: Interpretive Data U rine pH is affected by diet, medications, systemic acid-base disturbances, and renal tubular function. pH may affect urinary stone formation. For example, urine pH below 6.0 may help reduce the tendency for calcium phosphate stones and pH greater than 6.0 may reduce the tendency for uric acid stone formation. Source: [facility] Current Interpretive Data was last revised on 2017 Protein, ur ql Negative Negative [facility] Glucose, ur ql Negative Negative [facility] Ketones, ur Negative Negative [facility] Bilirubin, ur Negative Negative [facility] Blood, ur Negative Negative [facility] Urobilinogen, ur <2.0 <2.0 mg/dL [facility] Nitrite, ur Negative Negative [facility] Leukocyte esterase, ur 3+(A) Negative [facility] UA reflex comment Reflex to microscopic UA will be performed. [facility] Urine 09/07/2025 4:34 PM CUT OFF SAW SET UP OPERATOR 09/07/2025 4:37 PM CUT OFF SAW SET UP OPERATOR Mickey [facility]OS LAB MICROBIOLOGY - GENERAL O RDERABLES Final Result Performing Organization Address [facility] Co de Phone Number [address] [employer] [place] [address] * (ABNORMAL) Urinalysis, microscopic only (09/07/2025 4:34 PM CUT OFF SAW SET UP OPERATOR) WBC, ur 0-5 0 - 5 /HPF RBC, ur 3-5(A) 0 - 2 /HPF [facility] Epithelial cells, squamous, ur 6-10(A) 0 - 5 /HPF [facility] Comment:Suggestive of contam ination. Consider recollection by clean catch. Mucous, ur Present(A) [facility] Culture Reflex Comment Reflex conditions for urine culture (WBC >10) not met. [facility] Urine 09/07/2025 4:34 PM CUT OFF SAW SET UP OPERATOR 09/07/2025 4:37 PM CUT OFF SAW SET UP OPERATOR Mickey [facility]OS LAB URINE ORDERABLES Final R esult Performing Organization Address [facility]/ZIP Co de Phone Number [address] [place] [address] * ECG 12 lead (09/07/2025 3:43 PM CUT OFF SAW SET UP OPERATOR) Ventricular Rate EKG/Min 66 BPM [facility] Atrial Rate 66 BPM [facility] NE-Interval (MSEC) 186 ms [facility] QRS-Interval (MSEC) 98 ms [facility] QT-Interval (MSEC) 432 ms [facility] QTc 452 ms [facility] P [place] 45 degrees [facility] R [place] 2 degrees [facility] T [place] 26 degrees [facility] Diagnosis Normal sinus rhythm Normal ECG When compared with ECG of 07-JUN-2025 16:47, QT has shortened Confirmed by SULTAN AMBROCIO M.D. ([id number]) on 09/07/2025 5:59:59 PM [facility] 09/07/2025 3:43 PM CUT OFF SAW SET UP OPERATOR 09/07/2025 5:59 PM CUT OFF SAW SET UP OPERATOR Mickey AMOS ECG ORDERABLES Final Result [facility] * XR Chest 1 View (09/07/2025 3:24 PM CUT OFF SAW SET UP OPERATOR) Anatomical Region Laterality Modality Body, Chest N/A Computed Radiogr aphy 09/07/2025 3:41 PM CUT OFF SAW SET UP OPERATOR Impressions 09/07/2025 3:41 PM CUT OFF SAW SET UP OPERATOR 1. No radiographic evidence of acute cardiopulmonary process Electronically signed by: Macarena Solo M.D. Narrative 09/07/2025 3:41 PM CUT OFF SAW SET UP OPERATOR EXAMINATION: XR CHEST 1 VIEW HISTORY: Heart [...] process Electronically signed by: Macarena Solo M.D. us Mickey AMOS IMG XR PROCEDURES Final Resu lt * Troponin T high-sensitivity series (baseline, 2hr, 4hr, 6hr) (09/07/2025 3:09 PM CUT OFF SAW SET UP OPERATOR) Trop T hs <6 <=14 ng/L Comment: Interpretive Data For further hscTnT resources including the diagnostic algorithm and an aid in interpretation, copy and paste this link: https://nrl.testcatalog.org/show/hsTrop Current Interpretive Data last revised 2020. Blood 09/07/2025 3:09 PM CUT OFF SAW SET UP OPERATOR 09/07/2025 3:14 PM CUT OFF SAW SET UP OPERATOR Mickey AMOS LAB BLOOD ORDERABLES Final R esult [facility] [address] [facility] [place] [address] * eGFR (09/07/2025 3:09 PM CUT OFF SAW SET UP OPERATOR) Pathologist [facility] eGFR >90 >=60 mL/min/1. 73 m2 Comment: [...] last reviewed 2021. Blood 09/07/2025 3:09 PM CUT OFF SAW SET UP OPERATOR 09/07/2025 3:14 PM CUT OFF SAW SET UP OPERATOR us Mickey AMOS LAB BLOOD ORDERABLES Final R esult ISABEL [address] [facility] [place] [address] * (ABNORMAL) Differential, auto (09/07/2025 3:09 PM CUT OFF SAW SET UP OPERATOR) Neutrophil abs 1.13(L) 1.50 - 6.50 K/cumm Imm gran abs 0.00 0.00 - 0.10 K/cumm [facility] Lymphocyte abs 1.54 0.80 - 3.30 K/cumm [facility] Monocyte abs 0.36 0.20 - 0.80 K/cumm [facility] Eosinophil abs 0.08 0.00 - 0.50 K/cumm [facility] Basophil abs 0.04 0.00 - 0.10 K/cumm [facility] Neutrophil pct 35.9 % [facility] Comment: Interpretive Data Percent cell count reference ranges are not reported, since discordance with absolute values may lead to misinterpretation of CBC data. Current Interpretive Data was last revised on 2018. Imm gran pct 0.0 % [facility] Comment: Interpretive Data Percent cell count reference ranges are not reported, since discordance with absolute values may lead to misinterpretation of CBC data. Current Interpretive Data was last revised on 2018. Lymphocyte pct 48.9 % [facility] Comment: Interpretive Data Percent cell count reference ranges are not reported, since discordance with absolute values may lead to misinterpretation of CBC data. Current Interpretive Data was last revised on 2018. Monocyte pct 11.4 % [facility] Comment: Interpretive Data Percent cell count reference ranges are not reported, since discordance with absolute values may lead to misinterpretation of CBC data. Current Interpretive Data was last revised on 2018. Eosinophil pct 2.5 % [facility] Comment: Interpretive Data Percent cell count reference ranges are not reported, since discordance with absolute values may lead to misinterpretation of CBC data. Current Interpretive Data was last revised on 2018. Basophil pct 1.3 % [facility] Comment: Interpretive Data Percent cell count reference ranges are not reported, since discordance with absolute values may lead to misinterpretation of CBC data. Current Interpretive Data was last revised on 2018. Blood 09/07/2025 3:09 PM CUT OFF SAW SET UP OPERATOR 09/07/2025 3:14 PM CUT OFF SAW SET UP OPERATOR us Mickey AMOS LAB BLOOD ORDERABLES Final R esult ISABEL [address] [facility] Department [place] [address] * (ABNORMAL) Pro B-type natriuretic peptide (09/07/2025 3:09 PM CUT OFF SAW SET UP OPERATOR) NT-proBNP 526(H) <=300 pg/mL Comment: Interpretive Comments: [...] et.al. Eur Heart J. 2006:27:330-337. 2. Eric HUNTER, Taylor RAMIREZ. J. AM Jakob Cardiol: Cardiovasc Imag. 2009;2: 216- 225. Interpretive Data Last Revised Date: 2018. Blood 09/07/2025 3:09 PM CUT OFF SAW SET UP OPERATOR 09/07/2025 3:14 PM CUT OFF SAW SET UP OPERATOR us Mickey AMOS LAB BLOOD ORDERABLES Final R [facility] ISABEL [address] [place] [address] * (ABNORMAL) CBC with auto differential (09/07/2025 3:09 PM CUT OFF SAW SET UP OPERATOR) [facility] WBC 3.15(L) 3.80 - 9.90 K/cumm Hgb 8.9(L) 11.9 - 15.5 g/dL [facility] Hct 30.0(L) 35.6 - 45.5 % [facility] Plt 181 150 - 400 K/cumm [facility] MPV 12.3 9.1 - 12.3 fL [facility] RBC 3.30(L) 3.90 - 5.20 M/cumm [facility] MCV 90.9 81.3 - 96.4 fL [facility] MCH 27.0(L) 27.1 - 33.3 pg [facility] MCHC 29.7(L) 32.3 - 35.7 g/dL [facility] RDW CV 21.2(H) 11.1 - 14.9 % [facility] RDW SD 68.8(H) 35.7 - 48.1 fL [facility] NRBC abs 0.00 0.00 - 0.01 K/cumm [facility] Blood 09/07/2025 3:09 PM CUT OFF SAW SET UP OPERATOR 09/07/2025 3:14 PM CUT OFF SAW SET UP OPERATOR us Mickey AMOS LAB BLOOD ORDERABLES Final R esult [address] [place] [address] * Lipase (09/07/2025 3:09 PM CUT OFF SAW SET UP OPERATOR) [facility] Lipase 33 10 - 99 Units/L Blood 09/07/2025 3:09 PM CUT OFF SAW SET UP OPERATOR 09/07/2025 3:14 PM CUT OFF SAW SET UP OPERATOR us Mickey AMOS LAB BLOOD ORDERABLES Final R esult ISABEL [address] [facility] [place] [address] * (ABNORMAL) Comprehensive metabolic panel (09/07/2025 3:09 PM CUT OFF SAW SET UP OPERATOR) Sodium 139 135 - 145 mmol/L Potassium, pl 3.8 3.3 - 4.9 mmol/L [facility] Chloride 107 97 - 110 mmol/L [facility] CO2 25 22 - 32 mmol/L [facility] Anion gap 7 2 - 15 mmol/L [facility] BUN 7 6 - 25 mg/dL [facility] Creatinine 0.53(L) 0.60 - 1.10 mg/dL [facility] Glucose 87 70 - 199 mg/dL [facility] Comment: Interpretive Data Fasting glucose [...] 2022. Calcium 8.4(L) 8.5 - 10.3 mg/dL [facility] Bilirubin, total 0.3 0.1 - 1.2 mg/dL [facility] Protein, pl 5.7(L) 6.5 - 8.5 g/dL [facility] Albumin 3.4(L) 3.5 - 5.0 g/dL [facility] Alk phos 100 40 - 130 Units/L [facility] ALT 38 7 - 45 Units/L [facility] AST 82(H) 10 - 45 Units/L [facility] Blood 09/07/2025 3:09 PM CUT OFF SAW SET UP OPERATOR 09/07/2025 3:14 PM CUT OFF SAW SET UP OPERATOR Mickey AMOS LAB BLOOD ORDERABLES Final R esult ISABEL [address] [facility] [place] [address] * Laceration Repair (08/28/2025 9:05 PM CDT) Adia Jara PA - 08/28/2025 9:05 PM CDT Adia [...] MD IN CLINIC/BEDSIDE ORDER HERMELINDA Final Result * Laceration Repair (08/28/2025 9:04 PM CDT) Adia Jara PA - 08/28/2025 9:04 PM CDT Adia [...] Final Result from Last 3 Months Insurance [facility] Advance Directives For more information, please contact: [phone] * Full Code (Latest Code Status on File) Date Activated Date Inactivated Comments 04/06/2024 8:05 PM 04/09/2024 5:19 PM * Full Code Date Activated Date Inactivated Comments 04/30/2021 7:57 PM 05/03/2021 6:08 PM Care Teams Proof Technician Helper Relationship Specialty Start Date End Date Bib Kramer MD [address] [place] [id number] PCP - General Emergency Medicine 04/06/24 José Mishra MD Radiation Oncologist Radiation Oncology 06/28/22 Eddie Tobin MD Medical Oncologist/Fast Food Assistant Restaurant Manager Medical Oncology 07/18/22 Aden Amato MD [address] [place] [id number] Medical Oncologist/Fast Food Assistant Restaurant Manager Hematology and Oncology 04/15/24
--- OUTSIDE RECORDS SUMMARY | 2025-10-19 16:56 | XMS_ITS | Clinical Summary ---
Author Organization [facility] Address [address] [place] [address] Care Team Providers Care Supervisor Record Press Name Role Phone Unavailable Primary Care Provider [...]
[2025-10-19 17:05] VITALS: BP 141/92; PULSE 132; RESP 18; TEMP 36.4; O2SAT 98
--- OUTSIDE RECORDS SUMMARY | 2025-10-19 17:36 | XMS_ITS | Clinical Summary ---
Author Organization [facility] Flash chavez [facility] Address [address] [address] Care Team Providers Care Cardiac Catheterization Technician Name Role Phone Unavailable Primary Care Provider [...] st Contact Info) Description 11/22/2025 1:30 PM JACKET PREPARER Office Visit [facility] Oncology and Hematology - [address] [facility] [address] [place] [address] Ricki Chew MD [address] [facility] [address] [place] [address] Health Maintenance Due Date Last Done Comments DTAP/TDAP/TD VACCINES (1 - Tdap) 2005 HEPATITIS B VACCINES (1 of 3 - 19+ 3-dose series) 03/28 HPV/Cotest (21-29) 2007 CERVICAL CANCER SCREENING 2016 HPV/Cotest (30-65) 2016 PAP SMEAR 2016 INFLUENZA VACCINE (#1) 2025 HPV VACCINES (No Doses Required) Completed
--- OUTSIDE RECORDS SUMMARY | 2025-10-19 17:36 | XMS_ITS | Clinical Summary ---
Author Organization [facility] Address [address] [place] [address] Care Team Providers Care C Python Developer Name Role Phone Unavailable Primary Care Provider [...]
--- OUTSIDE RECORDS SUMMARY | 2025-10-19 17:36 | XMS_ITS | Clinical Summary ---
Author Organization [facility] [address] Address [address] [place] [address] Care Team Providers Care Propulsion Motor And Generator Repairer Name Role Phone José Mishra MD Unavailable [phone] Eddie Tobin MD Unavailable [phone] Bib Kramer MD Primary Care Provider [phone] Aden Amato MD Unavailable Allergies Active Allergy Reactions Criticality Noted Date [...] Department Care Team Description 09/12/2025 7:51 AM DIAMOND DIE POLISHER - 09/12/2025 11:59 PM DIAMOND DIE POLISHER Hospital Encounter [address] [address] Need for post exposure prophylaxis for rabies (Primary Dx) Discharge Disposition: Discharge to home or self care 09/07/2025 5:39 PM DIAMOND DIE POLISHER - 09/07/2025 7:48 PM DIAMOND DIE POLISHER Emergency [address] [address] Generalized body aches (Primary Dx); Allergic reaction, initial encounter Discharge Disposition: Discharge to home or self care 09/07/2025 Orders Only [address] [address] Yue Daigle RN 09/05/2025 8:00 AM DIAMOND DIE POLISHER - 09/05/2025 11:59 PM DIAMOND DIE POLISHER Hospital Encounter [address] [address] Need for post exposure prophylaxis for rabies (Primary Dx) Discharge Disposition: Discharge to home or self care 08/31/2025 1:47 PM DIAMOND DIE POLISHER - 08/31/2025 11:59 PM DIAMOND DIE POLISHER Hospital Encounter [address] [address] Yue Daigle RN Need for post exposure prophylaxis for rabies (Primary Dx); Dog bite, initial encounter Discharge Disposition: Discharge to home or self care 08/28/2025 7:40 PM CDT - 08/28/2025 9:34 PM CDT Emergency [address] [address] Dog bite, initial encounter (Primary Dx); Need [...] drink = 0.6 oz pur e alcohol) [employer] Answer Date Recorded In the past 12 months has [employer], gas, oil, or water [employer] threatened to shut off services in your home? No 04/07/2024 Social Connection and Isolation Panel Answer Date Recorded In a typical week, how many times do you talk on the phone with family, friends, or neighbors? Three times a week 04/07/2024 How often do you get togethe r with friends or relatives? Three times a week 04/07/2024 How often do you attend [facility] or pentecostal services? More than 4 times per year 04/07/2024 Do you belong to any clubs o r organizations such as synagogue groups, unions, fraternal or athletic groups, or [...] any time in the past 12 m [facility], were you homeless or living in a assisted (including now)? No 04/07/2024 Personal Safety Answer Date Recorded Have you ever been in or are you currently in a harmful physical or emotional relationship or is someone making you feel afraid or unsafe? Denies 09/07/2025 Comments No Sex and Gender Information Value Date Recorded Sex Assigned at Not on file Legal Sex Female 3:45 AM DIAMOND DIE POLISHER Gender Identity Female 04/07/2024 12:49 PM CDT Sexual Orientation Straight 04/07/2024 12 :49 PM CDT Last Filed Vital Signs Vital Sign Reading Time Taken Comments Blood Pressure 146/88 09/12/2025 8:12 AM DIAMOND DIE POLISHER Pulse 64 09/12/2025 8:12 AM DIAMOND DIE POLISHER Temperature 36.4 C (97.6 F) 09/12/2025 8:12 AM DIAMOND DIE POLISHER Respiratory Rate 18 09/12/2025 8:12 AM DIAMOND DIE POLISHER Oxygen Saturation 100% 09/12/2025 8:12 AM DIAMOND DIE POLISHER Inhaled Oxygen Concentration - - Weight 131.1 kg (289 lb) 09/07/2025 2:44 PM DIAMOND DIE POLISHER Height 167.6 cm (5' 6) 06/07/2025 4:51 [...] this topic Medical Devices Explanted Type Area Computer Mechanic Device Identifier Shelf Expiration Date Model / Serial / Lot Orbit [employer]der [employer] [id number] 6fr 24cm 145cm Radiopaque Positioner Filiform Flexible Tip - [id number] Implanted:Qty: 1 on 04/07/2024 by Heather Esparza MD at [facility] Explanted:Qty: 1 on 04/28/2024 by Heather Esparza MD at [facility] Right: Ureter [employer] 01/23/2027 [id number] / / [employer] [id number] 6fr 24cm 145cm Radiopaque Positioner Filiform Flexible Tip - [id number] Implanted:Qty: 1 on 04/07/2024 by Heather Esparza MD at [facility] Explanted:Qty: 1 on 04/28/2024 by Heather Esparza MD at [facility] Left: Ureter [employer] 12/10/2026 [id number] / / [employer] [id number] 6fr 24cm 145cm Radiopaque Positioner Filiform Flexible Tip - [id number] Implanted:Qty: 1 on 04/28/2024 by Heather Esparza MD at [facility] Explanted:Qty: 1 on 05/20/2024 by Heather Esparza MD Right: Ureter [employer] [id number] 01/23/2027 [id number] / / [id number] Procedures Procedure Name Priority Date/Time Associated Diagnosis Comments TROPONIN T HIGH-SENSITIVITY 2-HOUR Timed 09/07/2025 4:48 PM DIAMOND DIE POLISHER URINALYSIS, MICROSCOPIC ONLY STAT 09/07/2025 4:34 PM DIAMOND DIE POLISHER URINALYSIS AND REFLEX TO MICROSCOPIC AND CULTURE STAT 09/07/2025 4:34 PM DIAMOND DIE POLISHER ECG 12-LEAD STAT 09/07/2025 3:43 PM DIAMOND DIE POLISHER XR CHEST 1 VIEW ED 09/07/2025 3:24 PM DIAMOND DIE POLISHER EGFR STAT 09/07/2025 3:09 PM DIAMOND DIE POLISHER LIPASE STAT 09/07/2025 3:09 PM DIAMOND DIE POLISHER DIFFERENTIAL AUTO STAT 09/07/2025 3:0 9 PM DIAMOND DIE POLISHER PRO B-TYPE NATRIURETIC PEPTIDE STAT 09/07/2025 3:09 PM DIAMOND DIE POLISHER TROPONIN T HIGH-SENSITIVITY SERIES (BASELINE, 2HR, 4HR, 6HR) STAT 09/07/2025 3:09 PM DIAMOND DIE POLISHER COMPREHENSIVE METABOLIC PANEL STAT 09/07/2025 3:09 PM DIAMOND DIE POLISHER CBC WITH AUTO DIFFERENTIAL STAT 09/07/2025 3:09 PM DIAMOND DIE POLISHER ED LACERATION REPAIR Routine 08/28/2025 9:05 PM CDT ED LACERATION REPAIR Routine 08/28/2025 9:04 PM CDT from Last 3 Months Results * Troponin T high-sensitivity 2-hour (09/07/2025 4:48 PM DIAMOND DIE POLISHER) Trop T hs <6 <=14 ng/L Comment: Interpretive Data For further hscTnT resources including the diagnostic algorithm and an aid in interpretation, copy and paste this link: https://nrl.testcatalog.org/show/hsTrop Current Interpretive Data last revised 2020. Trop T hs delta 0 ng/L ISABEL Trop T hs interp Insignificant ISABEL Blood 09/07/2025 4:48 PM DIAMOND DIE POLISHER 09/07/2025 4:49 PM DIAMOND DIE POLISHER us Mickey [facility] BLOOD ORDERABLES Final R esult ISABEL [address] [facility] Department [place] [address] * (ABNORMAL) Urinalysis reflex to microscopic and culture Urine (09/07/2025 4:34 PM DIAMOND DIE POLISHER) Color, ur Yellow Yellow Clarity, ur Clear [...] tendency for uric acid stone formation. Source: [facility] Current Interpretive Data was last revised on 2017 Protein, ur ql Negative Negative [facility] Glucose, ur ql Negative Negative [facility] Ketones, ur Negative Negative [facility] Bilirubin, ur Negative Negative [facility] Blood, ur Negative Negative [facility] Urobilinogen, ur <2.0 <2.0 mg/dL [facility] Nitrite, ur Negative Negative [facility] Leukocyte esterase, ur 3+(A) Negative [facility] UA reflex comment Reflex to microscopic UA will be performed. [facility] Urine 09/07/2025 4:34 PM DIAMOND DIE POLISHER 09/07/2025 4:37 PM DIAMOND DIE POLISHER [facility] MICROBIOLOGY - GENERAL O RDERABLES Final Result Performing Organization Address [facility] [[email or web address]] Co de Phone Number [address] [employer] [place] [address] * (ABNORMAL) Urinalysis, microscopic only (09/07/2025 4:34 PM DIAMOND DIE POLISHER) WBC, ur 0-5 0 - 5 /HPF RBC, ur 3-5(A) 0 - 2 /HPF [facility] Epithelial cells, squamous, ur 6-10(A) 0 - 5 /HPF [facility] Comment:Suggestive of contam ination. Consider recollection by clean catch. Mucous, ur Present(A) [facility] Culture Reflex Comment Reflex conditions for urine culture (WBC >10) not met. [facility] Urine 09/07/2025 4:34 PM DIAMOND DIE POLISHER 09/07/2025 4:37 PM DIAMOND DIE POLISHER [facility] URINE ORDERABLES Final R esult Performing Organization Address [facility]/ZIP Co de Phone Number [address] [place] [address] * ECG 12 lead (09/07/2025 3:43 PM DIAMOND DIE POLISHER) Ventricular Rate EKG/Min 66 BPM [facility] Atrial Rate 66 BPM [facility] NV-Interval (MSEC) 186 ms [facility] QRS-Interval (MSEC) 98 ms [facility] QT-Interval (MSEC) 432 ms [facility] QTc 452 ms [facility] P [place] 45 degrees [facility] R [place] 2 degrees [facility] T [place] 26 degrees [facility] Diagnosis Normal sinus rhythm Normal ECG When compared with ECG of 07-JUN-2025 16:47, QT has shortened Confirmed by SULTAN AMBROCIO M.D. ([id number]) on 09/07/2025 5:59:59 PM [facility] 09/07/2025 3:43 PM DIAMOND DIE POLISHER 09/07/2025 5:59 PM DIAMOND DIE POLISHER Mickey [facility] ECG ORDERABLES Final Result [facility] * XR Chest 1 View (09/07/2025 3:24 PM DIAMOND DIE POLISHER) Anatomical Region Laterality Modality Body, Chest N/A Computed Radiogr aphy 09/07/2025 3:41 PM DIAMOND DIE POLISHER Impressions 09/07/2025 3:41 PM DIAMOND DIE POLISHER 1. No radiographic evidence of acute cardiopulmonary process Electronically signed by: Macarena Solo M.D. Narrative 09/07/2025 3:41 PM DIAMOND DIE POLISHER EXAMINATION: XR CHEST 1 VIEW HISTORY: Heart [...] (baseline, 2hr, 4hr, 6hr) (09/07/2025 3:09 PM DIAMOND DIE POLISHER) Trop T hs <6 <=14 ng/L Comment: Interpretive Data For further hscTnT resources including the diagnostic algorithm and an aid in interpretation, copy and paste this link: https://nrl.testcatalog.org/show/hsTrop Current Interpretive Data last revised 2020. Blood 09/07/2025 3:09 PM DIAMOND DIE POLISHER 09/07/2025 3:14 PM DIAMOND DIE POLISHER Mickey [facility] LAB BLOOD ORDERABLES Final R esult [facility] [address] [facility] Department [place] [address] * eGFR (09/07/2025 3:09 PM DIAMOND DIE POLISHER) Pathologist [facility] eGFR >90 >=60 mL/min/1. 73 [...] last reviewed 2021. Blood 09/07/2025 3:09 PM DIAMOND DIE POLISHER 09/07/2025 3:14 PM DIAMOND DIE POLISHER us Mickey [facility] LAB BLOOD ORDERABLES Final R esult ISABEL [address] [facility] Department [place] [address] * (ABNORMAL) Differential, auto (09/07/2025 3:09 PM DIAMOND DIE POLISHER) Neutrophil abs 1.13(L) 1.50 - 6.50 K/cumm Imm gran abs 0.00 0.00 - 0.10 K/cumm [facility] Lymphocyte abs 1.54 0.80 - 3.30 K/cumm [facility] Monocyte abs 0.36 0.20 - 0.80 K/cumm [facility] Eosinophil abs 0.08 0.00 - 0.50 K/cumm [facility] Basophil abs 0.04 0.00 - 0.10 K/cumm [facility] Neutrophil pct 35.9 % [facility] Comment: Interpretive Data Percent cell count reference ranges are not reported, since discordance with absolute values may lead to misinterpretation of CBC data. Current Interpretive Data was last revised on 2018. Imm gran pct 0.0 % [facility] Comment: Interpretive Data Percent cell count reference ranges are not reported, since discordance with absolute values may lead to misinterpretation of CBC data. Current Interpretive Data was last revised on 2018. Lymphocyte pct 48.9 % [facility] Comment: Interpretive Data Percent cell count reference ranges are not reported, since discordance with absolute values may lead to misinterpretation of CBC data. Current Interpretive Data was last revised on 2018. Monocyte pct 11.4 % [facility] Comment: Interpretive Data Percent cell count reference ranges are not reported, since discordance with absolute values may lead to misinterpretation of CBC data. Current Interpretive Data was last revised on 2018. Eosinophil pct 2.5 % [facility] Comment: Interpretive Data Percent cell count reference ranges are not reported, since discordance with absolute values may lead to misinterpretation of CBC data. Current Interpretive Data was last revised on 2018. Basophil pct 1.3 % [facility] Comment: Interpretive Data Percent cell count reference ranges are not reported, since discordance with absolute values may lead to misinterpretation of CBC data. Current Interpretive Data was last revised on 2018. Blood 09/07/2025 3:09 PM DIAMOND DIE POLISHER 09/07/2025 3:14 PM DIAMOND DIE POLISHER us Mickey [facility] LAB BLOOD ORDERABLES Final R esult ISABEL [address] [facility] Department [place] [address] * (ABNORMAL) Pro B-type natriuretic peptide (09/07/2025 3:09 PM DIAMOND DIE POLISHER) NT-proBNP 526(H) <=300 pg/mL Comment: Interpretive Comments: [...] Revised Date: 2018. Blood 09/07/2025 3:09 PM DIAMOND DIE POLISHER 09/07/2025 3:14 PM DIAMOND DIE POLISHER us Mickey [facility] LAB BLOOD ORDERABLES Final R [facility] ISABEL [address] [place] [address] * (ABNORMAL) CBC with auto differential (09/07/2025 3:09 PM DIAMOND DIE POLISHER) [facility] WBC 3.15(L) 3.80 - 9.90 K/cumm Hgb 8.9(L) 11.9 - 15.5 g/dL [facility] Hct 30.0(L) 35.6 - 45.5 % [facility] Plt 181 150 - 400 K/cumm [facility] MPV 12.3 9.1 - 12.3 fL [facility] RBC 3.30(L) 3.90 - 5.20 M/cumm [facility] MCV 90.9 81.3 - 96.4 fL [facility] MCH 27.0(L) 27.1 - 33.3 pg [facility] MCHC 29.7(L) 32.3 - 35.7 g/dL [facility] RDW CV 21.2(H) 11.1 - 14.9 % [facility] RDW SD 68.8(H) 35.7 - 48.1 fL [facility] NRBC abs 0.00 0.00 - 0.01 K/cumm [facility] Blood 09/07/2025 3:09 PM DIAMOND DIE POLISHER 09/07/2025 3:14 PM DIAMOND DIE POLISHER us Mickey [facility] LAB BLOOD ORDERABLES Final R esult [address] [place] [address] * Lipase (09/07/2025 3:09 PM DIAMOND DIE POLISHER) [facility] Lipase 33 10 - 99 Units/L Blood 09/07/2025 3:09 PM DIAMOND DIE POLISHER 09/07/2025 3:14 PM DIAMOND DIE POLISHER us Mickey [facility] LAB BLOOD ORDERABLES Final R esult ISABEL [address] [facility] Department [place] [address] * (ABNORMAL) Comprehensive metabolic panel (09/07/2025 3:09 PM DIAMOND DIE POLISHER) Sodium 139 135 - 145 mmol/L Potassium, pl 3.8 3.3 - 4.9 mmol/L [facility] Chloride 107 97 - 110 mmol/L [facility] CO2 25 22 - 32 mmol/L [facility] Anion gap 7 2 - 15 mmol/L [facility] BUN 7 6 - 25 mg/dL [facility] Creatinine 0.53(L) 0.60 - 1.10 mg/dL [facility] Glucose 87 70 - 199 mg/dL [facility] Comment: Interpretive Data Fasting glucose >/= 126 [...] 2022. Calcium 8.4(L) 8.5 - 10.3 mg/dL [facility] Bilirubin, total 0.3 0.1 - 1.2 mg/dL [facility] Protein, pl 5.7(L) 6.5 - 8.5 g/dL [facility] Albumin 3.4(L) 3.5 - 5.0 g/dL [facility] Alk phos 100 40 - 130 Units/L [facility] ALT 38 7 - 45 Units/L [facility] AST 82(H) 10 - 45 Units/L [facility] Blood 09/07/2025 3:09 PM DIAMOND DIE POLISHER 09/07/2025 3:14 PM DIAMOND DIE POLISHER Mickey [facility] LAB BLOOD ORDERABLES Final R esult ISABEL [address] [facility] Department [place] [address] * Laceration Repair (08/28/2025 9:05 PM CDT) [...] Final Result from Last 3 Months Insurance [facility] Advance Directives For more information, please contact: [phone] * Full Code (Latest Code Status on File) Date Activated Date Inactivated Comments 04/06/2024 8:05 PM 04/09/2024 5:19 PM * Full Code Date Activated Date Inactivated Comments 04/30/2021 7:57 PM 05/03/2021 6:08 PM Care Teams Propulsion Motor And Generator Repairer Relationship Specialty Start Date End Date Bib Kramer MD [address] [place] [address] PCP - General Emergency Medicine 04/06/24 José Mishra MD Radiation Oncologist Radiation Oncology 06/28/22 Eddie Tobin MD Medical Oncologist/Environmental Program Manager Medical Oncology 07/18/22 Aden Amato MD [address] [place] [address] Medical Oncologist/Environmental Program Manager Hematology and Oncology 04/15/24
--- OUTSIDE RECORDS SUMMARY | 2025-10-19 17:36 | XMS_ITS | Clinical Summary ---
Author Organization [facility] Address [address], [facility] [address] [place] [address] Phone Care Team Providers Care [employer] Computer Science Teacher Name Role Phone Darren Ortega MD Primary Care Provider [phone] Sudeep Ayala MD Unavailable [phone] Allergies Active Allergy Reactions Criticality Noted Date [...] mg by mouth. 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
--- OUTSIDE RECORDS SUMMARY | 2025-10-19 17:36 | XMS_ITS | Clinical Summary ---
Author Organization [facility] Address [address] [facility] [place] [address] Care Team Providers Care Flux Mixer Name Role Phone Darren Ortega MD Primary [...] Devices Not on file Insurance Care Teams Flux Mixer Relationship Specialty Start Date End Date Darren Ortega MD PCP - General Internal Medicine 09/23/21
--- OUTSIDE RECORDS SUMMARY | 2025-10-19 17:36 | XMS_ITS ---
Author Organization [facility] [address] Address [address] [place] [address] Care Team Providers Care Chief Mechanical Officer Name Role Phone José Mishra MD Unavailable [phone] Eddie Tobin MD Unavailable [phone] Bib Kramer MD Primary Care Provider [phone] Aden Amato MD Unavailable [phone] Active Problems Problem Noted Date Diagnosed Date [...]
--- OUTSIDE RECORDS SUMMARY | 2025-10-19 17:36 | XMS_ITS | Clinical Summary ---
Author Organization [facility] Address [address] [facility] [place] [address] Care Team Providers Care Record Press Supervisor Name Role Phone Darren Ortega MD Primary Care Provider [phone] Source Comments [facility],non-owned Affiliates and Associated Physician Practices is amultiple site organization consisting of ambulatory clinics and hospital sitesin [place], [place], [place] and [place]. This disclosure is being madepursuant to the Care Everywhere program and may not contain all information available regarding this patient. Last updated 18.[facility] Allergies Active Allergy Reactions Criticality Noted Date Comments Adhesive Sensitivity Rash Medium 03/25/2018 Lidocaine Rash High Swelling Peanut-Derived Swelling Medications * Be aware that medications may not be up to date on this document. Alwaysverify current medications with the patient. vitamin D, ergocalciferol, (DRISDOL) 1.25 MG (48329 UT) capsule Take 50,000 Units by mouth [...] Angulo was screened for depression using the [place] Depression Scale (EPDS) at her [facility] initial evaluation on 04/07/2018. Her initial score at baseline was 12. Based off of her score of 12, Su will receive follow up call from [facility] criminal justice social worker Jayda Oakes within the week. [...] from the original note were not included. [facility] PATIENT--PLEASE CALL [phone] (ex 2) IF TRIAGED OR ADMITTED Care Provider: Dr. Marisel Brooks [facility] [place] consultants involved: RN-Dio/Paco; Lauren-Geoff; Urology- Shante Diagnosis: [...] by calling Dariana Doherty, clinical nurse, at [phone] Ok to circumcise male with normal urethral meatus Parts Representative: Dr. 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
[2025-10-19] MEDS: TETANUS,DIPHTHERIA,AC PERTUSSIS ADULT (0.5 ML) BOOSTRIX IM (17:46)
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
[2025-10-19 18:18] VITALS: BP 130/89; PULSE 89; RESP 20; O2SAT 98
== END 2025-10-19 18:20 | disposition home or self-care (01) ==
PROVIDERS: Emergency Provider Emergency Medicine
DX: T21.22XA Burn of second degree of abdominal wall, initial encounter (principal); T31.0 Burns involving less than 10% of body surface; Z23 Encounter for immunization; I10 Essential (primary) hypertension; K21.9 Gastro-esophageal reflux disease without esophagitis; F41.9 Anxiety disorder, unspecified; F32.A Depression, unspecified; Z98.84 Bariatric surgery status; Z92.21 Personal history of antineoplastic chemotherapy; Z92.3 Personal history of irradiation; Z85.79 Personal history of other malignant neoplasms of lymphoid, hematopoietic and related tissues; Z90.79 Acquired absence of other genital organ(s); Z90.721 Acquired absence of ovaries, unilateral; X12.XXXA Contact with other hot fluids, initial encounter
CPT/HCPCS: 16020; 90471; 90715; 99282